=== PATIENT | female | born 1950 | race Caucasian/White ===

== ENCOUNTER 2022-02-27 10:29 | Outpatient (REF) | payer MEDICARE, OTHER, SELFPAY ==
[2022-02-27 10:45] LABS: MANUAL DIFF FLAG NO
[2022-02-27 12:04] LABS: Basophils Percent Auto 0.7 % (0-2); Eosinophils Absolute Auto 0.1 X10*3/uL (0.0-0.4); Eosinophils Percent Auto 2.4 % (0-4); Hematocrit 44.9 % (37.0-47.0); Hemoglobin 15.2 g/dl (12.0-16.0); Imm Gran Abs Auto 0.01 X10*3/uL (0.00-0.03); Imm Gran Pct Auto 0.2 % (0.0-0.4); Lymphocytes Absolute Auto 2.3 X10*3/uL (1.2-4.9); Lymphocytes Percent Auto 42.3 % (20-40); Mean Corpuscular HGB Conc 33.9 g/dl (31.0-35.0); Mean Corpuscular Hemoglobin 32.1 pg (27.0-33.0); Mean Corpuscular Volume 94.7 fL (80.0-98.0); Mean Platelet Volume 11.5 fL (9.4-12.3); Monocytes Absolute Auto 0.4 X10*3/uL (0.1-1.2); Monocytes Percent Auto 6.5 % (2-11); Neutrophils Absolute Auto 2.6 x10*3/uL (2.0-8.3); Neutrophils Percent Auto 47.9 % (45-73); Platelet Count 172 X10*3/uL (160-400); Red Blood Count 4.74 X10*6/uL (4.20-5.50); Red Cell Distribution Width 13.1 % (11.0-16.0); White Blood Count 5.5 X10*3/uL (4.8-10.8)
[2022-02-27 12:10] LABS: Appearance Urine CLEAR; Color Urine YELLOW; Glucose Urine UA NEG (NEG); Leukocyte Esterase Urine 2+ (NEG); Nitrite Urine NEG (NEG); PH 6.5 (5.0-8.0); Specific Gravity - Urine <= 1.005 (1.005-1.025); UACC Culture Trigger YES; Urine Blood TRACE (NEG); Urine Ketones NEG (NEG); Urine Protein NEG (NEG-TRACE)
[2022-02-27 12:47] LABS: Alanine Aminotransferase 9 U/L (0-31); Albumin Level 4.1 g/dL (3.5-5.0); Alkaline Phosphatase 83 U/L (39-117); Anion Gap 12 (12-20); Aspartate Amino Transferase 15 U/L (5-31); Bilirubin Total 0.9 mg/dL (0.0-1.0); Blood Urea Nitrogen 10 mg/dL (9-16); Calcium 9.3 mg/dL (8.4-10.2); Carbon Dioxide 28 mmol/L (22-29); Chloride 102 mmol/L (96-108); Cholesterol 241 mg/dL; Estimated Glomerular Filt Rate > 60; Glucose Fasting 94 mg/dL (60-99); HDL Cholesterol 75 mg/dL; LDL Cholesterol Calculated 153 mg/dl; Potassium 3.8 mmol/L (3.3-5.1); Sodium 138 mmol/L (135-145); Total Protein 6.3 g/dL (6.5-8.0); Triglycerides 67 mg/dL
[2022-02-27 12:52] LABS: Erythrocyte Sedimentation Rate 4 MM/HR (0-20)
[2022-02-27 12:54] LABS: Free T4 (Free Thyroxine) 1.68 ng/dL (0.71-1.85); Vitamin D 25-OH Total 17.8 ng/mL (>30)
[2022-02-27 13:25] LABS: Bacteria Urine 1+ /LPF; Squamous Epithelial Cell Urine 1+ /LPF
[2022-02-27 13:27] LABS: RBC Urine 0-2 /HPF (0)
== END 2022-02-27 10:30 | disposition home or self-care (01) ==
LOC: HO.LAB 10:29
PROVIDERS: PCP Internal Medicine; Visit Provider Internal Medicine
DX: M06.4 Inflammatory polyarthropathy (principal); E78.00 Pure hypercholesterolemia, unspecified; E55.9 Vitamin D deficiency, unspecified; E03.9 Hypothyroidism, unspecified; M79.7 Fibromyalgia; I10 Essential (primary) hypertension
CPT/HCPCS: 36415; 80053; 80061; 81001; 81003; 82306; 84439; 84443; 85025; 85652; 86140; 87086

== ENCOUNTER 2022-08-06 09:51 | Outpatient (REF) | payer MEDICARE, SELFPAY ==
[2022-08-06 10:09] LABS: MANUAL DIFF FLAG NO
[2022-08-06 10:42] LABS: Basophils Percent Auto 0.8 % (0-2); Eosinophils Absolute Auto 0.2 X10*3/uL (0.0-0.4); Eosinophils Percent Auto 3.3 % (0-4); Hematocrit 47.6 % (37.0-47.0); Hemoglobin 16.3 g/dl (12.0-16.0); Imm Gran Abs Auto 0.01 X10*3/uL (0.00-0.03); Imm Gran Pct Auto 0.2 % (0.0-0.4); Lymphocytes Absolute Auto 1.9 X10*3/uL (1.2-4.9); Lymphocytes Percent Auto 36.7 % (20-40); Mean Corpuscular HGB Conc 34.2 g/dl (31.0-35.0); Mean Corpuscular Hemoglobin 32.1 pg (27.0-33.0); Mean Corpuscular Volume 93.7 fL (80.0-98.0); Monocytes Absolute Auto 0.3 X10*3/uL (0.1-1.2); Monocytes Percent Auto 6.1 % (2-11); Neutrophils Absolute Auto 2.8 x10*3/uL (2.0-8.3); Neutrophils Percent Auto 52.9 % (45-73); Platelet Count 176 X10*3/uL (160-400); Red Blood Count 5.08 X10*6/uL (4.20-5.50); White Blood Count 5.2 X10*3/uL (4.8-10.8)
[2022-08-06 11:21] LABS: Alanine Aminotransferase 12 U/L (0-31); Albumin Level 4.4 g/dL (3.5-5.0); Alkaline Phosphatase 61 U/L (39-117); Anion Gap 15 (12-20); Aspartate Amino Transferase 17 U/L (5-31); Bilirubin Total 0.7 mg/dL (0.0-1.0); Blood Urea Nitrogen 17 mg/dL (9-16); Calcium 9.2 mg/dL (8.4-10.2); Carbon Dioxide 27 mmol/L (22-29); Chloride 98 mmol/L (96-108); Cholesterol 276 mg/dL; Estimated Glomerular Filt Rate > 60; Glucose Fasting 99 mg/dL (60-99); HDL Cholesterol 76 mg/dL; LDL Cholesterol Calculated 179 mg/dl; Potassium 3.4 mmol/L (3.3-5.1); Sodium 137 mmol/L (135-145); Total Protein 6.6 g/dL (6.5-8.0); Triglycerides 106 mg/dL
[2022-08-06 11:29] LABS: Free T4 (Free Thyroxine) 1.72 ng/dL (0.71-1.85); Vitamin D 25-OH Total 47.4 ng/mL (>30)
[2022-08-06 12:33] LABS: Appearance Urine Clear; Color Urine Yellow; Glucose Urine UA Negative (Negative); Leukocyte Esterase Urine Small (1+) (Negative); Nitrite Urine Negative (Negative); Specific Gravity - Urine 1.015 (1.005-1.025); UMIC TRIGGER UACC YES; Urine Blood Negative (Negative); Urine Ketones Negative (Negative); Urine Protein Negative (Neg-Trace)
[2022-08-06 13:20] LABS: Bacteria Urine None Seen (None Seen); Hyaline Casts Urine 0-2 /LPF (0-2); RBC Urine 0-2 /HPF (0-2); Squamous Epithelial Cell Urine 0-2 /HPF (0-2); UACC Culture Trigger YES; WBC Urine 0-5 /HPF (0-5)
== END 2022-08-06 09:52 | disposition home or self-care (01) ==
LOC: HO.LAB 09:51
PROVIDERS: PCP Internal Medicine; Visit Provider Internal Medicine
DX: I10 Essential (primary) hypertension (principal); E55.9 Vitamin D deficiency, unspecified; E78.00 Pure hypercholesterolemia, unspecified; E03.9 Hypothyroidism, unspecified
CPT/HCPCS: 36415; 80053; 80061; 81001; 81003; 82306; 84439; 84443; 85025; 87086

== ENCOUNTER 2022-11-08 08:11 | Outpatient (REF) | payer MEDICARE, SELFPAY ==
--- NOTE | ~2022-11-08 | US_ITS ---
EXAMINATION: US ABDOMEN COMPLETE CLINICAL INFORMATION: Unspecified abdominal pain. COMPARISON: None TECHNIQUE: Real-time imaging of the abdominal viscera. FINDINGS: PANCREAS: Normal. ABDOMINAL AORTA: The proximal, mid, and distal segments are normal in caliber. INFERIOR VENA CAVA: Visualized portions are normal. LIVER: Normal. The liver is normal in size. The liver contour is normal. Parenchymal echogenicity is normal. No focal hepatic lesion. There is no intrahepatic biliary duct dilatation seen. GALLBLADDER: Normal. The gallbladder is physiologically distended without evidence of stones, sludge, polyps, wall thickening or pericholecystic fluid. COMMON BILE DUCT: Normal in caliber measuring 0.2 cm in diameter. RIGHT KIDNEY: Normal. No hydronephrosis. No renal calculi or focal parenchymal lesions. The kidney measures 10.1 cm in maximum dimension. LEFT KIDNEY: Several small 1-2 mm echogenic foci are seen within the left kidney, nonspecific. No hydronephrosis. No renal calculi or focal parenchymal lesions. The kidney measures 9.9 cm in maximum dimension. SPLEEN: Normal. The spleen measures 8.4 cm in maximum dimension. FREE FLUID: None. US/US abdomen complete IMPRESSION: Several 1-2 mm echogenic nonshadowing foci in the left kidney. Most likely these represent vascular calcifications rather than nonshadowing calculi.
== END 2022-11-08 08:12 | disposition home or self-care (01) ==
LOC: HO.US 08:11
PROVIDERS: PCP Internal Medicine; Visit Provider Internal Medicine
DX: R10.9 Unspecified abdominal pain (principal)
CPT/HCPCS: 76700

== ENCOUNTER 2023-01-03 09:05 | Outpatient (REF) | payer MEDICARE, SELFPAY ==
[2023-01-03 09:19] LABS: MANUAL DIFF FLAG NO
[2023-01-03 09:56] LABS: Basophils Percent Auto 0.6 % (0-2); Eosinophils Absolute Auto 0.1 X10*3/uL (0.0-0.4); Hematocrit 48.7 % (37.0-47.0); Hemoglobin 16.4 g/dl (12.0-16.0); Imm Gran Abs Auto 0.02 X10*3/uL (0.00-0.03); Imm Gran Pct Auto 0.3 % (0.0-0.4); Lymphocytes Absolute Auto 2.2 X10*3/uL (1.2-4.9); Lymphocytes Percent Auto 31.4 % (20-40); Mean Corpuscular HGB Conc 33.7 g/dl (31.0-35.0); Mean Corpuscular Hemoglobin 31.7 pg (27.0-33.0); Mean Platelet Volume 10.8 fL (9.4-12.3); Monocytes Absolute Auto 0.4 X10*3/uL (0.1-1.2); Monocytes Percent Auto 5.8 % (2-11); Neutrophils Absolute Auto 4.3 x10*3/uL (2.0-8.3); Neutrophils Percent Auto 59.9 % (45-73); Platelet Count 179 X10*3/uL (160-400); Red Blood Count 5.18 X10*6/uL (4.20-5.50); White Blood Count 7.1 X10*3/uL (4.8-10.8)
[2023-01-03 09:56] LABS: Appearance Urine Clear; Color Urine Yellow; Glucose Urine UA Negative (Negative); Leukocyte Esterase Urine Negative (Negative); Nitrite Urine Negative (Negative); PH 6.5 (5.0-9.0); Specific Gravity - Urine 1.015 (1.005-1.025); Urine Blood Negative (Negative); Urine Ketones Negative (Negative); Urine Protein Trace mg/dL (Neg-Trace)
[2023-01-03 11:06] LABS: Alanine Aminotransferase 13 U/L (0-31); Albumin Level 4.3 g/dL (3.5-5.0); Alkaline Phosphatase 70 U/L (39-117); Anion Gap 14 (12-20); Aspartate Amino Transferase 15 U/L (5-31); Bilirubin Total 0.9 mg/dL (0.0-1.0); Blood Urea Nitrogen 21 mg/dL (9-16); Carbon Dioxide 27 mmol/L (22-29); Chloride 101 mmol/L (96-108); Cholesterol 299 mg/dL; Estimated Glomerular Filt Rate > 60; Glucose Fasting 94 mg/dL (60-99); HDL Cholesterol 75 mg/dL; LDL Cholesterol Calculated 206 mg/dl; Sodium 138 mmol/L (135-145); Total Protein 6.5 g/dL (6.5-8.0); Triglycerides 91 mg/dL
[2023-01-03 11:24] LABS: TSH reflex Free T4 1.24 uIU/mL (0.32-4.0); Vitamin D 25-OH Total 25.1 ng/mL (>30)
== END 2023-01-03 09:06 | disposition home or self-care (01) ==
LOC: HO.LAB 09:05
PROVIDERS: PCP Internal Medicine; Visit Provider Internal Medicine
DX: E55.9 Vitamin D deficiency, unspecified (principal); E78.00 Pure hypercholesterolemia, unspecified; R30.0 Dysuria; I10 Essential (primary) hypertension
CPT/HCPCS: 36415; 80053; 80061; 81003; 82306; 84443; 85025

== ENCOUNTER 2023-06-15 10:15 | Outpatient (REF) | payer MEDICARE, SELFPAY ==
[2023-06-15 10:41] LABS: MANUAL DIFF FLAG NO
[2023-06-15 11:16] LABS: Basophils Absolute Auto 0.1 X10*3/uL (0.0-0.2); Eosinophils Absolute Auto 0.2 X10*3/uL (0.0-0.4); Eosinophils Percent Auto 3.7 % (0-4); Hematocrit 46.7 % (37.0-47.0); Hemoglobin 15.8 g/dl (12.0-16.0); Imm Gran Abs Auto 0.02 X10*3/uL (0.00-0.03); Imm Gran Pct Auto 0.3 % (0.0-0.4); Lymphocytes Absolute Auto 2.7 X10*3/uL (1.2-4.9); Lymphocytes Percent Auto 44.4 % (20-40); Mean Corpuscular HGB Conc 33.8 g/dl (31.0-35.0); Mean Corpuscular Hemoglobin 32.4 pg (27.0-33.0); Mean Corpuscular Volume 95.7 fL (80.0-98.0); Mean Platelet Volume 10.9 fL (9.4-12.3); Monocytes Absolute Auto 0.4 X10*3/uL (0.1-1.2); Monocytes Percent Auto 6.8 % (2-11); Neutrophils Absolute Auto 2.6 x10*3/uL (2.0-8.3); Neutrophils Percent Auto 43.8 % (45-73); Platelet Count 191 X10*3/uL (160-400); Red Blood Count 4.88 X10*6/uL (4.20-5.50); Red Cell Distribution Width 13.2 % (11.0-16.0)
[2023-06-15 11:24] LABS: Appearance Urine Clear; Color Urine Yellow; Glucose Urine UA Negative (Negative); Leukocyte Esterase Urine Small (1+) (Negative); Nitrite Urine Negative (Negative); Specific Gravity - Urine 1.015 (1.005-1.025); UMIC TRIGGER UACC YES; Urine Blood Negative (Negative); Urine Ketones Negative (Negative); Urine Protein Trace mg/dL (Neg-Trace)
[2023-06-15 11:39] LABS: Bacteria Urine None Seen (None Seen); Hyaline Casts Urine 0-2 /LPF (0-2); RBC Urine 0-2 /HPF (0-2); UACC Culture Trigger YES; WBC Urine 0-5 /HPF (0-5)
[2023-06-15 12:03] LABS: Alanine Aminotransferase 11 U/L (0-31); Alkaline Phosphatase 73 U/L (39-117); Anion Gap 13 (12-20); Aspartate Amino Transferase 14 U/L (5-31); Bilirubin Total 0.7 mg/dL (0.0-1.0); Blood Urea Nitrogen 16 mg/dL (9-16); Calcium 9.3 mg/dL (8.4-10.2); Carbon Dioxide 27 mmol/L (22-29); Chloride 104 mmol/L (96-108); Cholesterol 379 mg/dL; Estimated Glomerular Filt Rate > 60; Glucose Fasting 95 mg/dL (60-99); HDL Cholesterol 83 mg/dL; LDL Cholesterol Calculated 277 mg/dl; Potassium 3.9 mmol/L (3.3-5.1); Sodium 140 mmol/L (135-145); Total Protein 6.6 g/dL (6.5-8.0); Triglycerides 95 mg/dL
[2023-06-15 12:08] LABS: Free T4 (Free Thyroxine) 1.29 ng/dL (0.71-1.85); Thyroid Stimulating Hormone 0.78 uIU/mL (0.32-4.0); Vitamin D 25-OH Total 35.9 ng/mL (>30)
== END 2023-06-15 10:16 | disposition home or self-care (01) ==
LOC: HO.LAB 10:15
PROVIDERS: PCP Internal Medicine; Visit Provider Internal Medicine
DX: E03.9 Hypothyroidism, unspecified (principal); E55.9 Vitamin D deficiency, unspecified; I10 Essential (primary) hypertension; E78.00 Pure hypercholesterolemia, unspecified; R30.0 Dysuria
CPT/HCPCS: 36415; 80053; 80061; 81001; 82306; 84439; 84443; 85025; 87086

== ENCOUNTER 2023-07-01 16:06 | Outpatient (AMB) | payer MEDICARE, SELFPAY ==
--- NOTE | 2023-07-01 16:16 | MHC.PC.OV ---
Vital Signs 07/01/23 16:17 Height 5 ft 1 in Weight 98 lb 8 oz BMI 18.6 BP 136/90 H Blood Pressure Location Lt brachial Position Sitting Pulse 83 Pulse Source Pulse Oximeter Pulse Oximetry (%) 95 Oxygen Delivery Method Room Air Intake Visit Reasons: 4m F/U hyperlipidemia, hypothyroidism [facility] Required: No Accompanied by: Self / Same As Patient Allergies aspirin Adverse Reaction (Intermediate, Verified 07/01/23 17:02) abdominal pain, nausea/vomiting, makes sick ezetimibe [Zetia] Adverse Reaction (Intermediate, Verified 07/01/23 17:02) abdominal pain Medication List - Last Reconciled 07/01/23 by Jose Vivar MD cholecalciferol (vitamin D3) 50 mcg PO DAILY 90 days levothyroxine 100 mcg PO QAM 90 days pantoprazole 40 mg PO DAILY 30 days Praluent Pen (alirocumab) 300 mg (2 mL) subcut Q4W 12 weeks NS Tobacco use date assessed: 07/01/23 Fall risk assessment: No Falls in past year Last assessed Fall Risk: 07/01/23 Dental Screening Dental Screen Date: 07/01/23 Did you have a dental visit in the last 12 months?: No Did you have a dental problem in the last 6 months where you did not have access to dental care?: No Was dental information given to patient?: No HPI 4m F/U hyperlipidemia, hypothyroidism HPI Details Patient comes in today for her follow up visit States that she feels okay States that she just started her Praluent injections last week and that her recent labs were done just before she started on her Rx Adds that she was also recently diagnosed with glaucoma by ophthalmology (in [place]) and started on a couple of eyedrops but she cannot remember the name of her Rx at this time She denies any headaches or dizziness Denies any chest pains, no SOB No nausea/vomiting, no abdominal pain - symptoms have improved significantly with Pantoprazole No change in bowel habits noted Had her follow up labs done a couple of weeks ago - to discuss her results [facility] Medical History (Updated 07/01/23 @ 17:18 by Jose Vivar MD) Acquired hypothyroidism Anxiety Benign essential hypertension Glaucoma Inflammatory polyarthropathy Pure hypercholesterolemia Smoker Vitamin D deficiency Surgical History No pertinent past surgical history Family History Father No problems noted. Mother No problems noted. Social History Housing: House Alcohol intake: current Alcohol intake frequency: does not drink Patient Tobacco Use Status: Current everyday Tobacco user Cigarette Packs Per Day: 1 Cigarettes Per Day: 20 e-Cigarette/Vaping Use: Never Used Second Hand Smoke Exposure: Yes Current occupational status: retired Cognitive needs: No Hearing needs: No Vision needs: Yes (reading glasses) Questionnaire PHQ-9 Over the last 2 weeks, how often have you been bothered by any of the following problems? 1. Little interest or pleasure in doing things: not at all 2. Feeling down, depressed, or hopeless: not at all 3. Trouble falling or staying asleep, or sleeping too much: not at all 4. Feeling tired or having little energy: not at all 5. Poor appetite or overeating: not at all 6. Feeling bad about yourself - or that you are a failure or have let yourself or your family down: not at all 7. Trouble concentrating on things, such as reading the newspaper or watching television: not at all 8. Moving or speaking so slowly that other people could have noticed. Or the opposite - being so fidgety or restless that you have been moving around a lot more than usual: not at all 9. Thoughts that you would be better off or of hurting yourself in some way: not at all Total score: 0 Depression Screening Interpretation: Negative 46591 - PHQ-9 Billing: Yes Source: Developed by Drs. Crow Peacock, Lina Warner, Hector Ace and colleagues, with an educational ross from [employer]. Thrive Questionnaire Date Thrive assessed: 07/01/23 I am a: Patient What is your living situation today?: I have a steady place to live Within the past 12 months, did the food you bought not last and you didn't have the money to get more?: Never true Within the past 12 months, did you worry whether your food would run out before you got money to buy more?: Never true Do you have trouble paying for medicines?: No Do you have trouble getting transportation to medical appointments?: No Do you have trouble paying your heating and electricity bill?: No Do you have trouble taking care of your child, family member or friend?: No Do you have trouble with day-to-day activities such as bathing, preparing meals, shopping, managing finances, etc.?: No Are you currently unemployed and looking for a job?: No Are you interested in more education?: No Please select the resources that you would like help with: None Currently or been in a relationship where the following occur: no concerns reported AUDIT C Alcohol Use Questionnaire (AUDIT-C) 1. How often do you have a drink containing alcohol?: Never 3. How often do you have six or more drinks on one occasion?: Never Total Score: 0 Score Reviewed/Action Taken: Yes ANA-7 AMB Questionnaire ANA-7 Date ANA - 7 assessed: 07/01/23 Feeling nervous, anxious, or on edge: 0 = Not at all Not being able to stop or control worryin = Not at all Worrying too much about different things: 0 = Not at all Trouble relaxin = Not at all Being so restless that it is hard to sit still: 0 = Not at all Becoming easily annoyed or irritable: 0 = Not at all Feeling afraid as if something awful might happen: 0 = Not at all Total ANA-7 score (0-4 normal; 5-9 mild; 10-14 moderate; 15-21 severe): 0 Source: Developed by Drs. Crow Peacock, Lina Warner, Hector Ace and colleagues, with an educational ross from [employer]. Review of Systems Const Denies chills, Denies fatigue, Denies fever(s) and Denies headache(s) Eyes Denies blurry vision and Denies eye pain ENT Denies dysphagia, Denies dizziness, Denies otalgia, Denies headache(s), Denies odynophagia and Denies sore throat Card Denies chest pain, Denies palpitations and Denies dyspnea Resp Denies cough and Denies dyspnea GI Denies abdominal pain, Denies constipation, Denies dysphagia, Denies heartburn, Denies diarrhea, Denies nausea, Denies odynophagia and Denies vomiting Denies difficulty voiding, Denies nocturia and Denies dysuria Musc Reports arthralgias (on and off, mild, especially over both hands), Denies joint swelling and Denies muscle weakness Skin/Breast Denies rash Neuro Denies dizziness and Denies headache(s) Endo Denies fatigue and Denies palpitations Physical exam (Primary Care) Vital Signs: Last Vital Signs Pulse 83 07/01/23 16:17 BP 136/90 H 07/01/23 16:17 Pulse Ox 95 07/01/23 16:17 Oxygen Delivery Method Room Air 07/01/23 16:17 BMI result Body Mass Index 18.6 Tobacco/Smoking Status: Tobacco use Status Tobacco use date assessed 07/01/23 07/01/23 16:23 Patient Tobacco Use Status Current everyday Tobacco 07/01/23 16:23 e-Cigarette/Vaping Use Never Used 07/01/23 16:23 PHQ-9: PHQ-9 Score PHQ-9: Total score 0 07/01/23 16:23 Depression Screening Interpretation: Negative Thrive Assessment: Date of Thrive Assessment Date Thrive assessed 07/01/23 07/01/23 16:23 Currently or been in a relationship where the following occur: no concerns reported Const General: no acute distress and alert HENMT Ears: TM's normal bilaterally and EAC's normal Throat: Yes posterior oropharynx normal and Yes tonsils normal (no TP congestion) Neck Neck: Yes no lymphadenopathy and Yes supple Resp Auscultation: clear to auscultation bilaterally, no rales and no wheezes Cardio Rate: regular rate Rhythm: regular rhythm Heart sounds: no murmurs GI Palpation (GI): Soft to palpation and nontender Auscultation: normal bowel sounds Extrem General: Yes no clubbing, cyanosis or edema Right upper extremity: Extremity exam: right hand Details: tenderness Left upper extremity: hand Details: tenderness Results Reviewed Results Reviewed: Laboratory Tests 06/15/23 06/15/23 06/15/23 10:38 10:40 10:40 WBC 6.0 Hgb 15.8 Hct 46.7 Plt Count 191 Sodium 140 Potassium 3.9 Creatinine 0.69 Estimated GFR > 60 Fasting Glucose 95 Calcium 9.3 AST 14 ALT 11 Triglycerides 95 Cholesterol 379 LDL Cholesterol, Calc 277 HDL Cholesterol 83 25-OH Vitamin D Total 35.9 TSH 0.78 Free T4 1.29 Urine pH 7.0 Ur Specific [place] 1.015 Urine Protein Trace Urine Glucose (UA) Negative Urine Blood Negative Assessment and Plan Assessment & Plan (1) Pure hypercholesterolemia: Code(s): E78.00 - Pure hypercholesterolemia, unspecified Plan: Results of her labs done a couple of weeks ago reviewed and discussed with patient - lipids have increased again significantly from previous States that her labs were done just before she started on Praluent; has not had any reactions or side effects so far on the Rx Reinforced low cholesterol diet Continue Praluent injection 300 mg Q 4 weeks Could not tolerate both Rosuvastatin 60 mg QD and Atorvastatin 80 mg QD - had abdominal pain on BOTH medications and her LDL cholesterol never did get to goal even when she was on Rosuvastatin 40 mg QD for the past couple of years Will recheck her labs and fasting lipids in 4 months for follow up (2) Acquired hypothyroidism: Code(s): E03.9 - Hypothyroidism, unspecified Plan: TFTs were normal on her recent labs Continue Levothyroxine 112 mcg QD Will recheck her TFTs in 4 months for follow up (3) Benign essential hypertension: Code(s): I10 - Essential (primary) hypertension Plan: Reinforced low sodium diet - goal is systolic BP of at least 140 to 150 mm or less Used to take Lisinopril 10 mg QD; states that she has just been taking it as needed over the past year or so and notes that her blood pressure is often much lower than her numbers here when she checks it at home (4) Gastritis: Code(s): K29.70 - Gastritis, unspecified, without bleeding Qualifiers: Gastritis type: unspecified gastritis Chronicity: unspecified Gastritis bleeding: without bleeding Qualified Code(s): K29.70 - Gastritis, unspecified, without bleeding Plan: Resolved - suspect gastritis as the etiology of her abdominal pain Reinforced dietary restrictions Abdominal US done a few months ago came out unrevealing Continue Pantoprazole 40 mg QD PRN (5) Inflammatory polyarthropathy: Code(s): M06.4 - Inflammatory polyarthropathy Plan: Follow up with rheumatology as scheduled States that her joint pains (especially over her hands and fingers) have improved a lot since she retired from work a couple of years ago Used to take Celebrex PRN but has not had to take it in a while now (6) Vitamin D deficiency: Code(s): E55.9 - Vitamin D deficiency, unspecified Plan: Corrected - continue Vitamin D3 2000 units QD (7) Glaucoma: Code(s): H40.9 - Unspecified glaucoma Qualifiers: Glaucoma type: unspecified Laterality: bilateral Qualified Code(s): H40.9 - Unspecified glaucoma Plan: Recently diagnosed Was started on a couple of eyedrops recently but she could not recall the names of her Rx - states that she will call them in as soon as she is able to Follow up with ophthalmology as scheduled (8) Anxiety: Code(s): F41.9 - Anxiety disorder, unspecified Plan: Has Lorazepam 1 mg tablets that she used to take BID as needed but states that her anxiety has been well-controlled lately and she has not had to take her Lorazepam in a few months now (9) Smoker: Code(s): F17.200 - Nicotine dependence, unspecified, uncomplicated Plan: Counseled again on smoking cessation Plan Follow up in 4 months Orders: Orders Lipid Panel 4 Months E78.00 - Pure hypercholesterolemia, unspecified [facility] [place]. Panel Fast 4 Months E78.00 - Pure hypercholesterolemia, unspecified Free T4 (Free Thyroxine) 4 Months E03.9 - Hypothyroidism, unspecified Thyroid Stimulating Hormone 4 Months E03.9 - Hypothyroidism, unspecified Complete Blood Count Auto Diff 4 Months I10 - Essential (primary) hypertension UA CC w/rflx Micro + Cult 4 Months R30.0 - Dysuria Coding Level of Care Code Est Pt Level 4 (43182) Diagnoses Pure hypercholesterolemia E78.00 Acquired hypothyroidism E03.9 Benign essential hypertension I10 Gastritis K29.70 Gastritis type: unspecified gastritis Chronicity: unspecified Gastritis bleeding: without bleeding Inflammatory polyarthropathy M06.4 Vitamin D deficiency E55.9 Glaucoma H40.9 Glaucoma type: unspecified Laterality: bilateral Anxiety F41.9 Smoker F17.200
[2023-07-01 16:17] VITALS: BP 136/90; PULSE 83; O2SAT 95; BMI 18.6
== END 2023-07-01 17:13 | disposition home or self-care (01) ==
PROVIDERS: PCP Internal Medicine; Visit Provider Internal Medicine
DX: E03.9 Hypothyroidism, unspecified (principal); I10 Essential (primary) hypertension; E55.9 Vitamin D deficiency, unspecified; F41.9 Anxiety disorder, unspecified; F17.200 Nicotine dependence, unspecified, uncomplicated; M06.4 Inflammatory polyarthropathy; E78.00 Pure hypercholesterolemia, unspecified; K29.70 Gastritis, unspecified, without bleeding; H40.9 Unspecified glaucoma
CPT/HCPCS: 99214

== ENCOUNTER 2023-11-29 09:26 | Outpatient (REF) | payer MEDICARE, SELFPAY ==
[2023-11-29 09:39] LABS: MANUAL DIFF FLAG NO
[2023-11-29 10:35] LABS: Basophils Absolute Auto 0.1 X10*3/uL (0.0-0.2); Eosinophils Absolute Auto 0.2 X10*3/uL (0.0-0.4); Eosinophils Percent Auto 3.4 % (0-4); Hematocrit 47.2 % (37.0-47.0); Hemoglobin 15.7 g/dl (12.0-16.0); Imm Gran Abs Auto 0.01 X10*3/uL (0.00-0.03); Imm Gran Pct Auto 0.2 % (0.0-0.4); Lymphocytes Absolute Auto 2.3 X10*3/uL (1.2-4.9); Lymphocytes Percent Auto 36.9 % (20-40); Mean Corpuscular HGB Conc 33.3 g/dl (31.0-35.0); Mean Corpuscular Hemoglobin 31.9 pg (27.0-33.0); Mean Corpuscular Volume 95.9 fL (80.0-98.0); Mean Platelet Volume 10.9 fL (9.4-12.3); Monocytes Absolute Auto 0.4 X10*3/uL (0.1-1.2); Monocytes Percent Auto 6.8 % (2-11); Neutrophils Absolute Auto 3.2 x10*3/uL (2.0-8.3); Neutrophils Percent Auto 51.7 % (45-73); Platelet Count 198 X10*3/uL (160-400); Red Blood Count 4.92 X10*6/uL (4.20-5.50); White Blood Count 6.2 X10*3/uL (4.8-10.8)
[2023-11-29 10:43] LABS: Appearance Urine Clear; Color Urine Yellow; Glucose Urine UA Negative (Negative); Leukocyte Esterase Urine Negative (Negative); Nitrite Urine Negative (Negative); PH 6.5 (5.0-9.0); Specific Gravity - Urine 1.015 (1.005-1.025); Urine Blood Negative (Negative); Urine Ketones Negative (Negative); Urine Protein Trace mg/dL (Neg-Trace)
[2023-11-29 11:23] LABS: Alanine Aminotransferase 8 U/L (0-31); Alkaline Phosphatase 69 U/L (39-117); Anion Gap 12 (12-20); Aspartate Amino Transferase 12 U/L (5-31); Bilirubin Total 0.6 mg/dL (0.0-1.0); Blood Urea Nitrogen 14 mg/dL (9-16); Calcium 8.8 mg/dL (8.4-10.2); Carbon Dioxide 27 mmol/L (22-29); Chloride 102 mmol/L (96-108); Cholesterol 364 mg/dL (<200); Estimated Glomerular Filt Rate > 60; Glucose Fasting 93 mg/dL (60-99); HDL Cholesterol 78 mg/dL (>40); LDL Cholesterol Calculated 264 mg/dL (<100); Potassium 3.2 mmol/L (3.3-5.1); Sodium 138 mmol/L (135-145); Total Protein 6.6 g/dL (6.5-8.0); Triglycerides 112 mg/dL (<150)
[2023-11-29 11:40] LABS: Free T4 (Free Thyroxine) 1.55 ng/dL (0.71-1.85); Thyroid Stimulating Hormone 0.82 uIU/mL (0.32-4.0)
== END 2023-11-29 09:27 | disposition home or self-care (01) ==
LOC: HO.LAB 09:26
PROVIDERS: PCP Internal Medicine; Visit Provider Internal Medicine
DX: I10 Essential (primary) hypertension (principal); R30.0 Dysuria; E03.9 Hypothyroidism, unspecified; E78.00 Pure hypercholesterolemia, unspecified
CPT/HCPCS: 36415; 80053; 80061; 81003; 84439; 84443; 85025

== ENCOUNTER 2023-12-03 13:45 | Outpatient (AMB) | payer MEDICARE, SELFPAY ==
[2023-12-03 13:46] VITALS: BP 152/100; PULSE 89; O2SAT 100; BMI 18.7
--- NOTE | 2023-12-03 13:46 | MHC.PC.OV ---
Vital Signs 12/03/23 13:46 Height 5 ft 1 in Weight 99 lb BMI 18.7 BP 152/100 H Blood Pressure Location Lt brachial Position Sitting Pulse 89 Pulse Source Pulse Oximeter Pulse Oximetry (%) 100 Oxygen Delivery Method Room Air Intake Visit Reasons: high blood pressure 190s, asymptomatic. G[facility] Peeler Required: No Product Safety Consultant: Not Required per policy Accompanied by: Self / Same As Patient Allergies aspirin Adverse Reaction (Intermediate, Verified 12/03/23 13:47) abdominal pain, nausea/vomiting, makes sick ezetimibe [Zetia] Adverse Reaction (Intermediate, Verified 12/03/23 13:47) abdominal pain Tobacco use date assessed: 12/03/23 Fall risk assessment: No Falls in past year Last assessed Fall Risk: 12/03/23 Dental Screening Dental Screen Date: 12/03/23 Did you have a dental visit in the last 12 months?: No Did you have a dental problem in the last 6 months where you did not have access to dental care?: No Was dental information given to patient?: Patient has dentist HPI high blood pressure 190s, asymptomatic. HPI Details 73-year-old female presents to the office for a sick visit. Patient was at the [facility] for right eye surgery yesterday. Her blood pressure was found to be elevated and the surgery was not done. Patient i presents to the office for evaluation of high blood pressure. She reports no symptoms of headaches or blurred vision. Smokes a pack a day. History of high LDL and is on injectable medications to lower cholesterol. She has been taking the PCSK9 inhibitor injection for the past 1 year. Stopped taking the medication a month ago as she has not able to afford the cost. [facility] Medical History (Updated 07/01/23 @ 17:18 by Jose Vivar MD) Glaucoma Vitamin D deficiency Smoker Anxiety Inflammatory polyarthropathy Benign essential hypertension Acquired hypothyroidism Pure hypercholesterolemia Surgical History No pertinent past surgical history Family History Father No problems noted. Mother No problems noted. Social History Housing: House Alcohol intake: current Alcohol intake frequency: does not drink Patient Tobacco Use Status: Current everyday Tobacco user Cigarette Packs Per Day: 1 Cigarettes Per Day: 20 e-Cigarette/Vaping Use: Never Used Second Hand Smoke Exposure: Yes Current occupational status: retired Cognitive needs: No Hearing needs: No Vision needs: Yes (reading glasses) Questionnaire PHQ-9 Over the last 2 weeks, how often have you been bothered by any of the following problems? 1. Little interest or pleasure in doing things: not at all 2. Feeling down, depressed, or hopeless: not at all 3. Trouble falling or staying asleep, or sleeping too much: not at all 4. Feeling tired or having little energy: not at all 5. Poor appetite or overeating: not at all 6. Feeling bad about yourself - or that you are a failure or have let yourself or your family down: not at all 7. Trouble concentrating on things, such as reading the newspaper or watching television: not at all 8. Moving or speaking so slowly that other people could have noticed. Or the opposite - being so fidgety or restless that you have been moving around a lot more than usual: not at all 9. Thoughts that you would be better off or of hurting yourself in some way: not at all Total score: 0 Depression Screening Interpretation: Negative Depression Screening Done: Yes 76001 - PHQ-9 Billing: Yes Source: Developed by Drs. Crow Peacock, Lina Warner, Hector Ace and colleagues, with an educational ross from [employer] Thrive Questionnaire Date Thrive assessed: 12/03/23 I am a: Patient What is your living situation today?: I have a steady place to live Within the past 12 months, did the food you bought not last and you didn't have the money to get more?: Never true Within the past 12 months, did you worry whether your food would run out before you got money to buy more?: Never true Do you have trouble paying for medicines?: No Do you have trouble getting transportation to medical appointments?: No Do you have trouble paying your heating and electricity bill?: No Do you have trouble taking care of your child, family member or friend?: No Do you have trouble with day-to-day activities such as bathing, preparing meals, shopping, managing finances, etc.?: No Are you currently unemployed and looking for a job?: No Are you interested in more education?: No Please select the resources that you would like help with: None THRIVE Score: 0 AUDIT C Alcohol Use Questionnaire (AUDIT-C) 1. How often do you have a drink containing alcohol?: Never 3. How often do you have six or more drinks on one occasion?: Never Total Score: 0 Score Reviewed/Action Taken: Yes ANA-7 AMB Questionnaire ANA-7 Date ANA - 7 assessed: 12/03/23 Feeling nervous, anxious, or on edge: 0 = Not at all Not being able to stop or control worryin = Not at all Worrying too much about different things: 0 = Not at all Trouble relaxin = Not at all Being so restless that it is hard to sit still: 0 = Not at all Becoming easily annoyed or irritable: 0 = Not at all Feeling afraid as if something awful might happen: 0 = Not at all Total ANA-7 score (0-4 normal; 5-9 mild; 10-14 moderate; 15-21 severe): 0 Source: Developed by Drs. Crow Peacock, Lina Warner, Hector Ace and colleagues, with an educational ross from [employer] Physical exam (Primary Care) Vital Signs: Last Vital Signs Pulse 89 12/03/23 13:46 BP 152/100 H 12/03/23 13:46 Pulse Ox 100 12/03/23 13:46 Oxygen Delivery Method Room Air 12/03/23 13:46 Care Plan Goal for BP management: Blood pressures elevated. Medications started. BMI result Body Mass Index 18.7 Tobacco/Smoking Status: Tobacco use Status Tobacco use date assessed 12/03/23 12/03/23 13:54 Patient Tobacco Use Status Current everyday Tobacco 12/03/23 13:47 e-Cigarette/Vaping Use Never Used 12/03/23 13:47 PHQ-9: PHQ-9 Score PHQ-9: Total score 0 12/03/23 13:54 Depression Screening Interpretation: Negative Thrive Assessment: Date of Thrive Assessment Date Thrive assessed 12/03/23 12/03/23 13:54 Const General: cooperative and healthy appearing Nutritional Appearance: well nourished Orientation/consciousness: patient oriented x3 Limitations: no limitations HENMT Head: Yes normal to inspection Eyes General: appearance normal, both eyes and all related structures Neck Neck: Yes normal visual inspection Chest Chest palpation & inspection: normal palpation of entire chest wall Resp Effort & Inspection: normal respiratory effort Neuro General: patient oriented x3 Assessment and Plan Assessment & Plan (1) Benign essential hypertension: Code(s): I10 - Essential (primary) hypertension Plan: Blood work reviewed. Potassium will be replaced. Elevated LDL cholesterol. Amlodipine started. Keep the primary care appointment that has been scheduled. Coding Level of Care Code Est Pt Level 4 (14610) Diagnoses Benign essential hypertension I10
== END 2023-12-03 14:14 | disposition home or self-care (01) ==
PROVIDERS: PCP Internal Medicine; Visit Provider Internal Medicine
DX: I10 Essential (primary) hypertension (principal)
CPT/HCPCS: 99214

== ENCOUNTER 2023-12-24 11:07 | Outpatient (AMB) | payer MEDICARE, SELFPAY ==
[2023-12-24 11:16] VITALS: BP 158/100; PULSE 75; O2SAT 95; BMI 18.9
--- NOTE | 2023-12-24 11:16 | A.OFFPC_ITS ---
Vital Signs 12/24/23 11:16 12/24/23 11:58 Height 5 ft 1 in Weight 100 lb BMI 18.9 BP 158/100 H 130/90 H Blood Pressure Location Lt brachial Lt brachial Position Sitting Sitting Pulse 75 Pulse Source Pulse Oximeter Pulse Oximetry (%) 95 Oxygen Delivery Method Room Air Intake Visit Reasons: cataract eye surgery [place] [employer] Required: No Accompanied by: Self / Same As Patient Allergies aspirin Adverse Reaction (Intermediate, Verified 12/24/23 12:11) abdominal pain, nausea/vomiting, makes sick ezetimibe [Zetia] Adverse Reaction (Intermediate, Verified 12/24/23 12:11) abdominal pain Medication List - Last Reconciled 12/24/23 by Jose Vivar MD amlodipine 5 mg PO DAILY 90 days cholecalciferol (vitamin D3) 50 mcg PO DAILY 90 days levothyroxine 100 mcg PO QAM 90 days lorazepam Take 1 tablet 30 to 60 minutes before procedure as needed for anxiety. May repeat x 1 dose after 10 to 15 minutes if needed. 1 day pantoprazole 40 mg PO DAILY 30 days potassium chloride ER 20 mEq PO DAILY 90 days Repatha SureClick (evolocumab) 140 mg subcut Q4W 4 weeks NS Tobacco use date assessed: 12/24/23 Fall risk assessment: No Falls in past year Last assessed Fall Risk: 12/24/23 Dental Screening Dental Screen Date: 12/24/23 Did you have a dental visit in the last 12 months?: Yes Did you have a dental problem in the last 6 months where you did not have access to dental care?: No Was dental information given to patient?: Patient has dentist HPI cataract eye surgery [place] HPI Details Patient comes in today at the request of Dr. John Wilson of [facility] for a preoperative medical examination for clearance for surgery She is scheduled for cataract extraction/phacoemulsification with IOL of both eyes under MAC; will have surgery on one eye done first on 12/26/2023, followed by the same procedure on the other eye a couple of weeks later Patient states that she feels okay She denies any headaches or dizziness Denies any chest pains, no SOB No nausea/vomiting, no abdominal pain No change in bowel habits noted She needs several of her Rx refilled She was supposed to be on Praluent injections ([place] for Rx was approved recently) for her high cholesterol but states that she could not afford the co-pay for her Rx [facility] Medical History Glaucoma Vitamin D deficiency Smoker Anxiety Inflammatory polyarthropathy Benign essential hypertension Acquired hypothyroidism Pure hypercholesterolemia Surgical History No pertinent past surgical history Family History Father No problems noted. Mother No problems noted. Social History Housing: House Alcohol intake: current Alcohol intake frequency: does not drink Patient Tobacco Use Status: Current everyday Tobacco user Cigarette Packs Per Day: 1 Cigarettes Per Day: 20 e-Cigarette/Vaping Use: Never Used Second Hand Smoke Exposure: Yes service: No Current occupational status: retired Current occupational exposures/hazards: No Cognitive needs: No Hearing needs: No Vision needs: Yes (reading glasses) Questionnaire PHQ-9 Over the last 2 weeks, how often have you been bothered by any of the following problems? 1. Little interest or pleasure in doing things: not at all 2. Feeling down, depressed, or hopeless: not at all 3. Trouble falling or staying asleep, or sleeping too much: not at all 4. Feeling tired or having little energy: not at all 5. Poor appetite or overeating: not at all 6. Feeling bad about yourself - or that you are a failure or have let yourself or your family down: not at all 7. Trouble concentrating on things, such as reading the newspaper or watching television: not at all 8. Moving or speaking so slowly that other people could have noticed. Or the opposite - being so fidgety or restless that you have been moving around a lot more than usual: not at all 9. Thoughts that you would be better off or of hurting yourself in some way: not at all Total score: 0 Depression Screening Interpretation: Negative Depression Screening Done: Yes 18002 - PHQ-9 Billing: Yes Source: Developed by Drs. Crow Peacock, Lina Warner, Hector Ace and colleagues, with an educational ross from [employer]. Thrive Questionnaire Date Thrive assessed: 12/24/23 I am a: Patient What is your living situation today?: I have a steady place to live Within the past 12 months, did the food you bought not last and you didn't have the money to get more?: Never true Within the past 12 months, did you worry whether your food would run out before you got money to buy more?: Never true Do you have trouble paying for medicines?: No Do you have trouble getting transportation to medical appointments?: No Do you have trouble paying your heating and electricity bill?: No Do you have trouble taking care of your child, family member or friend?: No Do you have trouble with day-to-day activities such as bathing, preparing meals, shopping, managing finances, etc.?: No Are you currently unemployed and looking for a job?: No Are you interested in more education?: No Please select the resources that you would like help with: None Currently or been in a relationship where the following occur: no concerns reported THRIVE Score: 0 AUDIT C Alcohol Use Questionnaire (AUDIT-C) 1. How often do you have a drink containing alcohol?: Never 3. How often do you have six or more drinks on one occasion?: Never Total Score: 0 Score Reviewed/Action Taken: Yes ANA-7 AMB Questionnaire ANA-7 Date ANA - 7 assessed: 12/24/23 Feeling nervous, anxious, or on edge: 0 = Not at all Not being able to stop or control worryin = Not at all Worrying too much about different things: 0 = Not at all Trouble relaxin = Not at all Being so restless that it is hard to sit still: 0 = Not at all Becoming easily annoyed or irritable: 0 = Not at all Feeling afraid as if something awful might happen: 0 = Not at all Total ANA-7 score (0-4 normal; 5-9 mild; 10-14 moderate; 15-21 severe): 0 Source: Developed by Drs. Crow Peacock, Hector Rodriguez and colleagues, with an educational ross from [employer]. Review of Systems Const Denies chills, Denies fatigue, Denies fever(s) and Denies headache(s) Eyes Reports blurry vision and Denies eye pain ENT Denies dysphagia, Denies dizziness, Denies otalgia, Denies headache(s), Denies odynophagia and Denies sore throat Card Denies chest pain, Denies palpitations and Denies dyspnea Resp Denies cough and Denies dyspnea GI Denies abdominal pain, Denies constipation, Denies dysphagia, Denies heartburn, Denies diarrhea, Denies nausea, Denies odynophagia and Denies vomiting Denies difficulty voiding, Denies nocturia and Denies dysuria Musc Reports arthralgias (on and off, mild, especially over both hands), Denies joint swelling and Denies muscle weakness Skin/Breast Denies rash Neuro Denies dizziness and Denies headache(s) Psych Reports anxiety (on and off, causing blood pressure to go up) Endo Denies fatigue and Denies palpitations Physical exam (Primary Care) Vital Signs: Last Vital Signs Pulse 75 12/24/23 11:16 BP 130/90 H 12/24/23 11:58 Pulse Ox 95 12/24/23 11:16 Oxygen Delivery Method Room Air 12/24/23 11:16 BMI result Body Mass Index 18.9 Tobacco/Smoking Status: Tobacco use Status Tobacco use date assessed 12/24/23 12/24/23 11:23 Patient Tobacco Use Status Current everyday Tobacco 12/24/23 11:23 e-Cigarette/Vaping Use Never Used 12/24/23 11:23 PHQ-9: PHQ-9 Score PHQ-9: Total score 0 12/24/23 12:21 Depression Screening Interpretation: Negative Thrive Assessment: Date of Thrive Assessment Date Thrive assessed 12/24/23 12/24/23 11:23 Currently or been in a relationship where the following occur: no concerns reported Const General: no acute distress and alert HENMT Ears: TM's normal bilaterally and EAC's normal Throat: Yes posterior oropharynx normal and Yes tonsils normal (no TP congestion) Neck Neck: Yes no lymphadenopathy and Yes supple Resp Auscultation: clear to auscultation bilaterally, no rales and no wheezes Cardio Rate: regular rate Rhythm: regular rhythm Heart sounds: no murmurs GI Palpation (GI): Soft to palpation and nontender Auscultation: normal bowel sounds Extrem General: Yes no clubbing, cyanosis or edema Right upper extremity: Extremity exam: right hand Details: tenderness Left upper extremity: hand Details: tenderness Results Reviewed Results Reviewed: Laboratory Tests 11/29/23 11/29/23 11/29/23 09:36 09:36 09:37 WBC 6.2 Hgb 15.7 Hct 47.2 H Plt Count 198 Sodium 138 Potassium 3.2 L Creatinine 0.78 Estimated GFR > 60 Fasting Glucose Calcium AST ALT 8 Triglycerides 112 Cholesterol 364 H LDL Cholesterol, Calc 264 H HDL Cholesterol 78 TSH 0.82 Free T4 1.55 Ur Specific [place] 1.015 Urine Protein Trace Urine Glucose (UA) Negative Urine Blood Negative Urine Nitrite Negative Ur Leukocyte Esterase Negative 11/29/23 11/29/23 09:37 09:37 WBC Hgb Hct Plt Count Sodium Potassium Creatinine Estimated GFR Fasting Glucose 93 Calcium 8.8 AST 12 ALT Triglycerides Cholesterol LDL Cholesterol, Calc HDL Cholesterol TSH Free T4 Ur Specific [place] Urine Protein Urine Glucose (UA) Urine Blood Urine Nitrite Ur Leukocyte Esterase Assessment and Plan Assessment & Plan (1) Preoperative examination: Code(s): Z01.818 - Encounter for other preprocedural examination Plan: Patient presents with acceptable risks for planned low cardiac risk procedure(s) She is asymptomatic (aside from her anxiety); repeat blood pressure today is acceptable at 130/90 mm - she most likely has white coat syndrome or anxiety- driven high blood pressure as her BP readings at home over the past couple of years have been consistently much lower [facility] (2) Cataracts, bilateral: Code(s): H26.9 - Unspecified cataract Qualifiers: Cataract type: unspecified Qualified Code(s): H26.9 - Unspecified cataract Plan: She is scheduled for cataract extraction/phacoemulsification with IOL of both eyes under MAC with Dr. John Wilson Will have surgery done on one eye first on 12/26/2023, followed by the same procedure on the other eye a couple of weeks later (3) Benign essential hypertension: Code(s): I10 - Essential (primary) hypertension Plan: Reinforced low sodium diet - goal is systolic BP of at least 140 to 150 mm or less Suspect that she may have component of white coat syndrome or her blood pressure is partly anxiety-driven as her blood pressure is often high when checked here in the office but has been consistently much lower when she checks it at home Her BP was initially high at 158/100 but repeat blood pressure once she has settled down in the exam room came back much better at 130/90 Continue Amlodipine 5 mg QD Patient is reminded to continue monitoring her blood pressure regularly (4) Pure hypercholesterolemia: Code(s): E78.00 - Pure hypercholesterolemia, unspecified Plan: Results of her labs done last month reviewed and discussed with patient - lipids have increased again significantly from previous Reinforced low cholesterol diet She was started on Praluent injections 300 mg Q 4 weeks a few months ago and has not had any reactions or side effects so far to the Rx but she could not afford to continue paying the high co-pay for her Rx so she has again been out of it for a while She could not tolerate both Rosuvastatin 60 mg QD and Atorvastatin 80 mg QD - had abdominal pain on BOTH medications and her LDL cholesterol never did get to goal even when she was on Rosuvastatin 40 mg QD for the past couple of years She also could not tolerate Ezetimibe due to side effects Will try starting her instead on Repatha injections at 140 mg SQ every 4 weeks - have instructed patient to inform us JOSE if she cannot get this Rx filled for any reason so we can try to get this approved and get her started on this JOSE Will recheck her labs and fasting lipids in 4 months for follow up (5) Acquired hypothyroidism: Code(s): E03.9 - Hypothyroidism, unspecified Plan: Continue Levothyroxine 100 mcg QD Will recheck her TFTs in 4 months for follow up (6) Gastritis: Code(s): K29.70 - Gastritis, unspecified, without bleeding Qualifiers: Chronicity: unspecified Gastritis bleeding: without bleeding Gastritis type: unspecified gastritis Qualified Code(s): K29.70 - Gastritis, unspecified, without bleeding Plan: Resolved - suspect gastritis as the etiology of her previous abdominal pain Abdominal US done a few months ago came out unrevealing Reinforced dietary restrictions Continue Pantoprazole 40 mg QD PRN (7) Inflammatory polyarthropathy: Code(s): M06.4 - Inflammatory polyarthropathy Plan: Follow up with rheumatology as scheduled States that her joint pains (especially over her hands and fingers) have improved a lot since she retired from work a couple of years ago Used to take Celebrex PRN but has not had to take it in a while now (8) Vitamin D deficiency: Code(s): E55.9 - Vitamin D deficiency, unspecified Plan: Continue Vitamin D3 2000 units QD (9) Anxiety: Code(s): F41.9 - Anxiety disorder, unspecified Plan: Has Lorazepam 1 mg tablets that she used to take BID as needed but states that her anxiety has been well-controlled lately and she has not had to take her Lorazepam in a few months now With her upcoming eye surgery, will have her take Lorazepam 0.5 mg 1/2 to 1 hour before her procedure and can take second dose after 15 to 20 minutes if needed to help keep her anxiety controlled and her blood pressure from going up too much due to anxiety (10) Smoker: Code(s): F17.200 - Nicotine dependence, unspecified, uncomplicated Plan: Counseled again on smoking cessation Plan Patient currently appears medically optimized and has no contraindications to undergo cataract surgery with IOL of both eyes as planned - is MEDICALLY CLEARED for surgery Follow up in 4 months Orders: Orders Comprehensive [place]. Panel Fast 4 Months E78.00 - Pure hypercholesterolemia, unspecified Complete Blood Count Auto Diff 4 Months D64.9 - Anemia, unspecified Free T4 (Free Thyroxine) 4 Months E03.9 - Hypothyroidism, unspecified UA CC w/rflx Micro + Cult 4 Months R30.0 - Dysuria Lipid Panel 4 Months E78.00 - Pure hypercholesterolemia, unspecified Thyroid Stimulating Hormone 4 Months E03.9 - Hypothyroidism, unspecified Vitamin D 25-OH Total 4 Months E55.9 - Vitamin D deficiency, unspecified Medications: New lorazepam Take 1 tablet 30 to 60 minutes before procedure as needed for anxiety. May repeat x 1 dose after 10 to 15 minutes if needed. 2 tabs 0RF anxiety 1 day Repatha SureClick (evolocumab) 140 mg subcut Q4W 1 mL 3RF 4 weeks NS Changed From amlodipine 5 mg PO DAILY 30 tabs 0RF To amlodipine 5 mg PO DAILY 90 tabs 1RF 90 days From potassium chloride ER 20 mEq PO DAILY 14 tabs 0RF To potassium chloride ER 20 mEq PO DAILY 90 tabs 1RF 90 days Refilled levothyroxine 100 mcg PO QAM 90 tabs 1RF 90 days cholecalciferol (vitamin D3) 50 mcg PO DAILY 90 caps 3RF 90 days E55.9 - Vitamin D deficiency, unspecified Coding Level of Care Code Est Pt Level 4 (52710) Diagnoses Preoperative examination Z01.818 Cataract of both eyes, unspecified cataract type H26.9 Cataract type: unspecified Benign essential hypertension I10 Pure hypercholesterolemia E78.00 Acquired hypothyroidism E03.9 Gastritis without bleeding, unspecified chronicity, unspecified gastritis type K29.70 Chronicity: unspecified Gastritis bleeding: without bleeding Gastritis type: unspecified gastritis Inflammatory polyarthropathy M06.4 Vitamin D deficiency E55.9 Anxiety F41.9 Smoker F17.200
[2023-12-24 11:58] VITALS: BP 130/90
== END 2023-12-24 12:07 | disposition home or self-care (01) ==
PROVIDERS: PCP Internal Medicine; Visit Provider Internal Medicine
DX: H26.9 Unspecified cataract (principal); M06.4 Inflammatory polyarthropathy; Z01.818 Encounter for other preprocedural examination; I10 Essential (primary) hypertension; E78.00 Pure hypercholesterolemia, unspecified; E03.9 Hypothyroidism, unspecified; K29.70 Gastritis, unspecified, without bleeding; E55.9 Vitamin D deficiency, unspecified; F41.9 Anxiety disorder, unspecified; F17.210 Nicotine dependence, cigarettes, uncomplicated
CPT/HCPCS: 99214

== ENCOUNTER 2024-04-10 09:36 | Outpatient (REF) | payer MEDICARE, SELFPAY ==
[2024-04-10 09:52] LABS: MANUAL DIFF FLAG NO
[2024-04-10 10:58] LABS: Appearance Urine Clear; Color Urine Yellow; Glucose Urine UA Negative (Negative); Leukocyte Esterase Urine Negative (Negative); Nitrite Urine Negative (Negative); PH 7.5 (5.0-9.0); Specific Gravity - Urine 1.015 (1.005-1.025); Urine Blood Negative (Negative); Urine Ketones Negative (Negative); Urine Protein Trace mg/dL (Neg-Trace)
[2024-04-10 11:18] LABS: Basophils Absolute Auto 0.1 X10*3/uL (0.0-0.2); Eosinophils Absolute Auto 0.2 X10*3/uL (0.0-0.4); Eosinophils Percent Auto 3.3 % (0-4); Hematocrit 48.9 % (37.0-47.0); Hemoglobin 16.8 g/dl (12.0-16.0); Imm Gran Abs Auto 0.02 X10*3/uL (0.00-0.03); Imm Gran Pct Auto 0.3 % (0.0-0.4); Lymphocytes Percent Auto 29.3 % (20-40); Mean Corpuscular HGB Conc 34.4 g/dl (31.0-35.0); Mean Corpuscular Hemoglobin 32.4 pg (27.0-33.0); Mean Corpuscular Volume 94.4 fL (80.0-98.0); Mean Platelet Volume 10.8 fL (9.4-12.3); Monocytes Absolute Auto 0.5 X10*3/uL (0.1-1.2); Neutrophils Absolute Auto 4.1 x10*3/uL (2.0-8.3); Neutrophils Percent Auto 59.1 % (45-73); Platelet Count 220 X10*3/uL (160-400); Red Blood Count 5.18 X10*6/uL (4.20-5.50); Red Cell Distribution Width 13.9 % (11.0-16.0)
[2024-04-10 12:09] LABS: Alanine Aminotransferase 10 U/L (0-31); Albumin Level 4.1 g/dL (3.5-5.0); Alkaline Phosphatase 81 U/L (39-117); Anion Gap 12 (12-20); Aspartate Amino Transferase 14 U/L (5-31); Bilirubin Total 0.5 mg/dL (0.0-1.0); Blood Urea Nitrogen 13 mg/dL (9-16); Calcium 9.2 mg/dL (8.4-10.2); Carbon Dioxide 28 mmol/L (22-29); Chloride 103 mmol/L (96-108); Cholesterol 374 mg/dL (<200); Estimated Glomerular Filt Rate > 60; Glucose Fasting 96 mg/dL (60-99); HDL Cholesterol 75 mg/dL (>40); LDL Cholesterol Calculated 276 mg/dL (<100); Potassium 3.8 mmol/L (3.3-5.1); Sodium 139 mmol/L (135-145); Total Protein 6.6 g/dL (6.5-8.0); Triglycerides 119 mg/dL (<150)
[2024-04-10 12:27] LABS: Thyroid Stimulating Hormone 0.73 uIU/mL (0.32-4.0); Vitamin D 25-OH Total 40.9 ng/mL (>30)
== END 2024-04-10 09:37 | disposition home or self-care (01) ==
LOC: HO.LAB 09:36
PROVIDERS: PCP Internal Medicine; Visit Provider Internal Medicine
DX: E78.00 Pure hypercholesterolemia, unspecified (principal); E55.9 Vitamin D deficiency, unspecified; E03.9 Hypothyroidism, unspecified; D64.9 Anemia, unspecified; R30.0 Dysuria
CPT/HCPCS: 36415; 80053; 80061; 81003; 82306; 84439; 84443; 85025

== ENCOUNTER 2024-04-20 12:44 | Outpatient (AMB) | payer MEDICARE, SELFPAY ==
--- NOTE | 2024-04-20 12:51 | MHC.PC.OV ---
Vital Signs 04/20/24 12:52 Height 5 ft 1 in Weight 94 lb 8 oz BMI 17.9 BP 140/82 H Blood Pressure Location Lt brachial Position Sitting Pulse 64 Pulse Source Pulse Oximeter Pulse Oximetry (%) 96 Oxygen Delivery Method Room Air Intake Visit Reasons: 4 month f/u Intake Note: Patient is here to follow up on HTN, Hypothyroidism, Hypercholesterolemia. 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 May repeat x 1 dose after 10 to 15 minutes if needed. 1 day pantoprazole 40 mg PO DAILY 90 days potassium chloride ER 20 mEq PO DAILY 90 days Repatha SureClick (evolocumab) 280 mg (2 mL) subcut Q4W 4 weeks NS Tobacco use date assessed: 04/20/24 Fall risk assessment: No Falls in past year Last assessed Fall Risk: 04/20/24 Dental Screening Dental Screen Date: 12/24/23 HPI 4 month f/u HPI Details Patient comes in today for her follow up visit States that she could not get her Repatha Rx refilled for a while now as her supposed co-pay for her Rx has gone up significantly recently States that she used to pay $20 per Rx ($40 a month) for her Repatha but this apparently has increased to $40 per Rx that she was supposed to get weekly now (?), totaling $160 per month (?) States that she could not afford this any longer if it stays at this tre[place] so she has not gotten her injection in a few weeks now She also recalls experiencing occasional sharp pains over her left elbow while she is doing something and using her arm - recalls that this first occurred while she was out working in her garden and she was carrying something and almost dropped them when her pain occurred States that she thought somebody shot her with a BB gun when her pain occurred - states that the pain now comes and goes but it has not occurred more frequently and the pain is often not as bad She does not recall any recent injury or trauma to her elbow Lastly, adds that she has a recurrent pain over the right side of her neck for a few years now and has gotten cortisone injections there from a doctor over at [address] in the past with (+) relief of her symptoms although she could not recall the name of the doctor Would like to see if she can be referred for injections again She denies any headaches or dizziness Denies any chest pains, no increased SOB No nausea/vomiting, no abdominal pain No change in bowel habits noted She also needs a couple of her other Rx refilled Had her follow up labs done a couple of weeks ago - to discuss her results [facility] Medical History Glaucoma Vitamin D deficiency Smoker Anxiety Inflammatory polyarthropathy Benign essential hypertension Acquired hypothyroidism Pure hypercholesterolemia Surgical History No pertinent past surgical history Family History Father No problems noted. Mother No problems noted. Social History Housing: House Alcohol intake: current Alcohol intake frequency: does not drink Patient Tobacco Use Status: Current everyday Tobacco user Tobacco use type: Cigarette Cigarette Packs Per Day: 1 Cigarettes Per Day: 20 e-Cigarette/Vaping Use: Never Used Second Hand Smoke Exposure: Yes service: No Current occupational status: retired Current occupational exposures/hazards: No Cognitive needs: No Hearing needs: No Vision needs: Yes (reading glasses) Questionnaire Thrive Questionnaire Date Thrive assessed: 12/24/23 ANA-7 AMB Questionnaire ANA-7 Date ANA - 7 assessed: 12/24/23 Source: Developed by Drs. Crow Peacock, Lina Warner, Hecotr Ace and colleagues, with an educational ross from [employer] Review of Systems Const Denies chills, Denies fatigue, Denies fever(s) and Denies headache(s) ENT Denies dysphagia, Denies dizziness, Denies otalgia, Denies headache(s), Reports neck pain (increased especially on the right side near the upper back), Denies odynophagia and Denies sore throat Card Denies chest pain, Denies palpitations and Denies dyspnea Resp Denies cough and Denies dyspnea GI Denies abdominal pain, Denies constipation, Denies dysphagia, Denies heartburn, Denies diarrhea, Denies nausea, Denies odynophagia and Denies vomiting Denies difficulty voiding, Denies nocturia and Denies dysuria Musc Reports arthralgias (on and off, mild, especially over both hands), Denies joint swelling, Denies muscle weakness and Reports neck pain (increased especially on the right side near the upper back) Skin/Breast Denies rash Neuro Denies dizziness and Denies headache(s) Psych Reports anxiety (on and off, causing blood pressure to go up) Endo Denies fatigue and Denies palpitations Physical exam (Primary Care) Vital Signs: Last Vital Signs Pulse 64 04/20/24 12:52 BP 140/82 H 04/20/24 12:52 Pulse Ox 96 04/20/24 12:52 Oxygen Delivery Method Room Air 04/20/24 12:52 BMI result Body Mass Index 17.9 Tobacco/Smoking Status: Tobacco use Status Tobacco use date assessed 04/20/24 04/20/24 12:57 Patient Tobacco Use Status Current everyday Tobacco 04/20/24 12:57 Tobacco use type Cigarette 04/20/24 12:57 e-Cigarette/Vaping Use Never Used 04/20/24 12:57 Thrive Assessment: Date of Thrive Assessment Date Thrive assessed 12/24/23 04/20/24 12:57 Const General: no acute distress and alert HENMT Ears: TM's normal bilaterally and EAC's normal Throat: Yes posterior oropharynx normal and Yes tonsils normal (no TP congestion) Neck Other: (+) tenderness on palpation over the right lower neck / upper back, just above the superior margin of the right scapula Neck: Yes no lymphadenopathy Thyroid: Thyroid normal Resp Auscultation: clear to auscultation bilaterally, no rales and no wheezes Cardio Rate: regular rate Rhythm: regular rhythm Heart sounds: no murmurs GI Palpation (GI): Soft to palpation and nontender Auscultation: normal bowel sounds General: Yes no CVA tenderness Back/Spine/Pelvis Back: no CVA tenderness Cervical Spine: cervical muscular tenderness (over the right side just above the right scapula) Skin Rashes: no rashes Extrem General: Yes no clubbing, cyanosis or edema Right upper extremity: Extremity exam: right hand Details: tenderness Left upper extremity: elbow/forearm Details: tenderness (mild) Location: of the olecranon and hand Details: tenderness Results Reviewed Results Reviewed: Laboratory Tests 04/10/24 04/10/24 09:51 09:52 WBC 7.0 Hgb 16.8 H Hct 48.9 H Plt Count 220 Sodium 139 Potassium 3.8 Creatinine 0.64 Estimated GFR > 60 Fasting Glucose 96 Calcium 9.2 AST 14 ALT 10 Triglycerides 119 Cholesterol 374 H LDL Cholesterol, Calc 276 H HDL Cholesterol 75 25-OH Vitamin D Total 40.9 TSH 0.73 Free T4 1.50 Ur Specific [place] 1.015 Urine Protein Trace Urine Glucose (UA) Negative Urine Blood Negative Urine Nitrite Negative Ur Leukocyte Esterase Negative Assessment and Plan Assessment & Plan (1) Benign essential hypertension: Code(s): I10 - Essential (primary) hypertension Plan: Reinforced low sodium diet - goal is systolic BP of at least 140 to 150 mm or less Suspect that she may have component of white coat syndrome or her blood pressure is partly anxiety-driven as her blood pressure is often high when checked here in the office but has been consistently much lower when she checks it at home Her BP today at 142/80 mm is actually one of the better readings she's had in a long time Continue Amlodipine 5 mg QD Patient is reminded to continue monitoring her blood pressure regularly (2) Pure hypercholesterolemia: Code(s): E78.00 - Pure hypercholesterolemia, unspecified Plan: Results of her labs done a couple of weeks ago reviewed and discussed with patient - her lipids have increased again significantly from previous as she has not been able to get her Repatha injections lately Reinforced low cholesterol diet She has not responded well enough to Praluent injections 300 mg Q 4 weeks in the past and could not afford to stay on the Rx She could not tolerate both Rosuvastatin 60 mg QD and Atorvastatin 80 mg QD - had abdominal pain on BOTH medications and her LDL cholesterol never did get to goal even when she was on Rosuvastatin 40 mg QD for the past couple of years She also could not tolerate Ezetimibe due to side effects Her cholesterol numbers appear to have improved on Repatha injections over the past few months but patient again stopped taking the Rx when her co-pay supposedly went up to $40 per Rx that she was supposed to get weekly now (?), totaling $160 per month (?) - states that she cannot afford her Rx now that she has to take it once a week Have advised patient that we are not sure where her last Rx for Repatha weekly injections came from as her Rx from us has stayed tje same at 1 dose every 4 weeks Will have her try to get back on Repatha injections but will try increasing it to 280 mg Q 4 weeks - she is advised that if she still cannot afford her Rx, then we will just get her back to her previous dose of 140 mg Q 4 weeks Will recheck her labs and fasting lipids in 4 months for follow up (3) Acquired hypothyroidism: Code(s): E03.9 - Hypothyroidism, unspecified Plan: Continue Levothyroxine 100 mcg QD Will recheck her TFTs in 4 months for follow up (4) Gastritis: Code(s): K29.70 - Gastritis, unspecified, without bleeding Qualifiers: Chronicity: unspecified Gastritis bleeding: without bleeding Gastritis type: unspecified gastritis Qualified Code(s): K29.70 - Gastritis, unspecified, without bleeding Plan: Resolved - suspect gastritis as the etiology of her previous abdominal pain Abdominal US done a few months ago came out unrevealing Reinforced dietary restrictions Continue Pantoprazole 40 mg QD PRN (5) Inflammatory polyarthropathy: Code(s): M06.4 - Inflammatory polyarthropathy Plan: Follow up with rheumatology as scheduled States that her joint pains (especially over her hands and fingers) have improved a lot since she retired from work a couple of years ago Used to take Celebrex PRN but has not had to take it in a while now (6) Neck pain on right side: Code(s): M54.2 - Cervicalgia Plan: Patient is currently requesting for a referral to see someone about getting injections again into her right upper back/lower neck area to help relieve her neck pain Will refer her to pain management for consideration for trigger point injection Tx (7) Vitamin D deficiency: Code(s): E55.9 - Vitamin D deficiency, unspecified Plan: Continue Vitamin D3 2000 units QD (8) Anxiety: Code(s): F41.9 - Anxiety disorder, unspecified Plan: Has Lorazepam 1 mg tablets that she used to take BID as needed but states that her anxiety has been well-controlled lately and she has not had to take her Lorazepam in a few months now (9) Smoker: Code(s): F17.200 - Nicotine dependence, unspecified, uncomplicated Plan: Counseled again on smoking cessation Plan Follow up in 4 months Orders: Orders Comprehensive [place]. Panel Fast 4 Months E78.00 - Pure hypercholesterolemia, unspecified Complete Blood Count Auto Diff 4 Months D64.9 - Anemia, unspecified Lipid Panel 4 Months E78.00 - Pure hypercholesterolemia, unspecified Referrals Pain Management Referral M54.2 - Cervicalgia Medications: Changed From pantoprazole 40 mg PO DAILY 30 days 30 tabs 3RF To pantoprazole 40 mg PO DAILY 90 tabs 1RF 90 days From Repatha SureClick (evolocumab) 140 mg subcut Q4W 4 weeks 1 mL 3RF NS To Repatha SureClick (evolocumab) 280 mg (2 mL) subcut Q4W 2 mL 3RF 4 weeks NS Refilled amlodipine 5 mg PO DAILY 90 tabs 1RF 90 days Coding Level of Care Code Est Pt Level 4 (01056) Complex EM visit Add On G2211 Diagnoses Benign essential hypertension I10 Pure hypercholesterolemia E78.00 Acquired hypothyroidism E03.9 Gastritis without bleeding, unspecified chronicity, unspecified gastritis type K29.70 Chronicity: unspecified Gastritis bleeding: without bleeding Gastritis type: unspecified gastritis Inflammatory polyarthropathy M06.4 Neck pain on right side M54.2 Vitamin D deficiency E55.9 Anxiety F41.9 Smoker F17.200
[2024-04-20 12:52] VITALS: BP 140/82; PULSE 64; O2SAT 96; BMI 17.9
== END 2024-04-20 13:37 | disposition home or self-care (01) ==
PROVIDERS: PCP Internal Medicine; Visit Provider Internal Medicine
DX: I10 Essential (primary) hypertension (principal); E78.00 Pure hypercholesterolemia, unspecified; E03.9 Hypothyroidism, unspecified; K29.70 Gastritis, unspecified, without bleeding; M06.4 Inflammatory polyarthropathy; M54.2 Cervicalgia; E55.9 Vitamin D deficiency, unspecified; F41.9 Anxiety disorder, unspecified; F17.200 Nicotine dependence, unspecified, uncomplicated
CPT/HCPCS: 99214; G2211

== ENCOUNTER 2024-04-30 10:22 | Outpatient (AMB) | payer MEDICARE, SELFPAY ==
--- NOTE | 2024-04-30 10:28 | MHC.OFFVIS ---
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 Denies any recent trauma, injury or falls. Reports neck pain for 30 years and has underwent trigger point injection in [id number] by provider in this building, [address] [place] [address] , but cannot recall provider's name. Review of EMR shows left shoulder subacromial steroid injection by Dr. Hall on 11/05/2013 and also seen by [facility] Rheumatology team but no injections given for [id number] EMR review. Patient reports she completed full course physical therapy about 7 years ago and has been regularly performing learned PT exercises at home to maintain range of motion and reduce stiffness and spasms. Neck pain is axial, moderately severe with cervical extension and side rotation. She reports increasing pain during gardening and doing crossword puzzles. Muscle spasms with taut band is localized to left trapezius and mild spasming in the right trapezius. She reports neck lino radiates into her right posterior shoulder and periscapular area. Patient requests trigger point injection today. She presents with elevated blood pressure today. We discussed updating cervical spine imaging given previous findings as noted below and evaluate bone density prior to any steriodal injections. We also discussed diagnostic cervical medial branch blocks. Patient denies any fever, chills, dizziness, headache, chest pain, shortness of breaths, gait imbalance, bladder or bowel dysfunction or saddle anesthesia. Location: Lower neck radiates to right shoulder Duration: Chronic pain 30 years, worsening for past few months Characteristics of symptom or complaint: Aching, stabbing, spasming, tightness, stiffness Aggravating or associated factors: Movements, gardening, cervical extension, reading, looking down Relieving factors: not doing anything , heat/ice, lidocaine patches, OTC creams Treatment: PT, trigger point injections 9 years ago, acupunture [facility] Medical History (Updated 04/30/24 @ 23:09 by CLARISSE Boyle) Right shoulder pain Glaucoma Vitamin D deficiency Smoker Anxiety Inflammatory polyarthropathy Benign essential hypertension Acquired hypothyroidism Pure hypercholesterolemia Surgical History No pertinent past surgical history Family History Father No problems noted. Mother No problems noted. Social History Housing: House Alcohol intake: current Alcohol intake frequency: does not drink Patient Tobacco Use Status: Current everyday Tobacco user Tobacco use type: Cigarette Cigarette Packs Per Day: 1 Cigarettes Per Day: 20 e-Cigarette/Vaping Use: Never Used Second Hand Smoke Exposure: Yes service: No Current occupational status: retired Current occupational exposures/hazards: No Cognitive needs: No Hearing needs: No Vision needs: Yes (reading glasses) Review of Systems Const All systems reviewed & are unremarkable except as noted in HPI and below Physical Exam Vital Signs: Last Vital Signs Pulse 99 04/30/24 10:33 BP 176/99 H 04/30/24 10:33 Pulse Ox 96 04/30/24 10:33 Oxygen Delivery Method Room Air 04/30/24 10:33 BMI result Body Mass Index 18.0 General: Appears afebrile. No acute distress. Thin frame. Alert and oriented. Mood and affect appropriate. Mildly anxious. Follows and participates in conversation appropriately. Respiratory effort is unlabored. No cough. Able to transition from sit to stand unassisted. Ambulates with bilaterally normal heel strike and toe off. Neck Other: Patient with decreased cervical ROM in all planes/especially with right lateral rotation. Reports increased pain with cervical extension and prolonged flexion. Spurling compression test negative. Pain is unchanged by Spurling maneuver with retraction. Elvey's tension test is negative. Lhermitte's test was negative. DTR intact, +2 and symmetrical. Patient demonstrated 5/5 motor strength of bilateral upper extremities. 2 + radial pulses. Significant tightness throughout left upper trapezius as well as mild TTP throughout bilateral upper trapezius muscles. No paravertebral tenderness over facet joints bilaterally. Multiple taut bands palpated throughout left upper trapezius muscles. TTP right posterior shoulder and periscalular area. Neck: Yes normal visual inspection, Yes no lymphadenopathy, Yes supple, No anterior neck swelling, Yes no JVD, No prominent supraclavicular fat pad and No prominent dorsocervical fat pad Back/Spine/Pelvis Cervical Spine: No collar present, No Lhermitte's sign positive, loss of normal cervical lordosis, cervical muscular tenderness, pain with cervical ROM, No Cervical spine scars present, cervical spasm, No Cervical spine tenderness and No step off deformity Thoracic/Lumbar Spine: thoracic and lumbar spine normal to inspection, No Thoracic/lumbar spine scar(s), Lasegue's sign negative, pain with thoraco-lumbar ROM, paraspinal muscle tenderness on the right greater than left, thoraco-lumbar ROM limited, thoracic spinal tenderness (upper thoracic) and lumbar spinal tenderness at L4 and at L5 Sacroiliac joints: bilaterally nontender Extrem General: Yes capillary refill normal, Yes no clubbing, cyanosis or edema and Yes no calf tenderness Right upper extremity: shoulder/upper arm Details: normal to inspection, tenderness Location: over the subacromial bursa and over the deltoid bursa, normal ROM and crepitus; no swelling, no ecchymosis and no unusual warmth Results Reviewed Results Reviewed: XR CERVICAL SPINE 4 VIEWS 07/17/2013 CLINICAL INFORMATION: Right neck pain. COMPARISON: None. TECHNIQUE: Frontal, odontoid, bilateral oblique and lateral views are submitted. FINDINGS: 2 mm anterolistheses are seen at C3-4, C5-6 and C7-T1. There is moderately severe disc space narrowing and spondylosis at C6-7. The remaining disc spaces are well-maintained. No acute fracture or spondylolisthesis is seen. The bilateral neural foramina appear patent. The posterior elements are intact. The dens is intact. There is no prevertebral soft tissue swelling. IMPRESSION: 1. There is moderately severe degenerative disc disease at C6-7. 2. Mild degenerative disc disease is seen at C3-4, C5-6 and C7-T1. 3. No acute fracture or spondylolisthesis is seen. Assessment & Plan Assessment & Plan (1) Inflammatory polyarthropathy: Code(s): M06.4 - Inflammatory polyarthropathy Category: Medical (2) Degenerative disc disease, cervical: Code(s): M50.30 - Other cervical disc degeneration, unspecified cervical region Category: Medical (3) Muscle spasms of neck: Code(s): M62.838 - Other muscle spasm Category: Medical (4) Cervical spondylosis: Code(s): M47.812 - Spondylosis without myelopathy or radiculopathy, cervical region Category: Medical (5) Right shoulder pain: Code(s): M25.511 - Pain in right shoulder Category: Medical Plan Cervical spine imaging to assess degree of degenerative changes, any subluxation, listhesis, compression fractures or pars defects and Bone scan to assess for bone density (thin-framed, BMI<18.5, post-menopausal, age>65, tobacco use, pantoprazole, inflammatory arthritis). Schedule Right Diagnostic C4-C5-C6 MBB with local and fluoroscopy. If she has significant relief from the diagnostic nerve blocks for her axial cervical pain, will consider either therapeutic injections (if normal bone scan), Sprint PNS or RFA depending on her preference. Expectations, risks and benefits were reviewed. Patient is aware she will be contacted to schedule this procedure. All questions and concerns have been answered and patient agreed with the plan. Follow up after injections and sooner as needed. Orders: Orders XR DEXA axial skeleton Today M06.4 - Inflammatory polyarthropathy, M50.30 - Other cervical disc degeneration, unspecified cervical region, Z91.89 - Other specified personal risk factors, not elsewhere classified XR cervical spine min 6V Today M47.812 - Spondylosis without myelopathy or radiculopathy, cervical region, M50.30 - Other cervical disc degeneration, unspecified cervical region, M62.838 - Other muscle spasm Coding Level of Care Code New Pt Level 4 (52056) Diagnoses Inflammatory polyarthropathy M06.4 Degenerative disc disease, cervical M50.30 Muscle spasms of neck M62.838 Cervical spondylosis M47.812 Right shoulder pain M25.511
[2024-04-30 10:33] VITALS: BP 176/99; PULSE 99; O2SAT 96; BMI 18.0
== END 2024-04-30 10:58 | disposition home or self-care (01) ==
PROVIDERS: PCP Internal Medicine; Referring Provider Internal Medicine; Visit Provider Nurse Practitioner Family
DX: M06.4 Inflammatory polyarthropathy (principal); M50.30 Other cervical disc degeneration, unspecified cervical region; M62.838 Other muscle spasm; M47.812 Spondylosis without myelopathy or radiculopathy, cervical region; M25.511 Pain in right shoulder
CPT/HCPCS: 99204

== ENCOUNTER → 2024-04-30 10:22 | Outpatient (BNVA) | payer MEDICARE, SELFPAY | PROVIDERS: PCP Internal Medicine; Referring Provider Internal Medicine; Visit Provider Nurse Practitioner Family | DX: M06.4 Inflammatory polyarthropathy (principal); M50.30 Other cervical disc degeneration, unspecified cervical region; M62.838 Other muscle spasm; M47.812 Spondylosis without myelopathy or radiculopathy, cervical region; M25.511 Pain in right shoulder | CPT/HCPCS: 99202 ==

== ENCOUNTER 2024-05-26 06:22 | Outpatient (REF) | payer MEDICARE, SELFPAY | END 2024-05-26 06:23 | disposition home or self-care (01) | LOC: CF 06:22 | PROVIDERS: Visit Provider Anesthesiology | DX: M06.4 Inflammatory polyarthropathy (principal); M50.30 Other cervical disc degeneration, unspecified cervical region; M62.838 Other muscle spasm; M47.812 Spondylosis without myelopathy or radiculopathy, cervical region; M25.511 Pain in right shoulder; I10 Essential (primary) hypertension; Z53.09 Procedure and treatment not carried out because of other contraindication | CPT/HCPCS: 99212 ==

== ENCOUNTER 2024-05-26 12:40 | Outpatient (AMB) | payer MEDICARE, SELFPAY ==
[2024-05-26 12:47] VITALS: BP 186/110; PULSE 67; RESP 17; O2SAT 96
--- NOTE | 2024-05-26 12:47 | MHC.OFFVIS ---
Vital Signs 05/26/24 12:47 BP 186/110 H Blood Pressure Location Lt brachial Position Sitting Respiration 17 Pulse 67 Pulse Source Pulse Oximeter Pulse Oximetry (%) 96 Oxygen Delivery Method Room Air Intake Visit Reasons: Right Diagnostic C4-C5-C6 MBB Allergies aspirin Adverse Reaction (Intermediate, Verified 04/30/24 10:35) abdominal pain, nausea/vomiting, makes sick ezetimibe [Zetia] Adverse Reaction (Intermediate, Verified 04/30/24 10:35) abdominal pain HPI HPI Right Diagnostic C4-C5-C6 MBB : Details: The patient came today to the operating room to receive diagnostic right medial branch block C4-C5 C6. We measured her blood pressure and her blood pressure was elevated to 190/110. Her heart rate was around 67 beats per minute. That would demonstrate that her blood pressure rather elevated not from anxiety, that it is a chronic effect of hypertension. She would have carry significant risk of stroke even without the procedure. I recommended the patient to go to a primary care physician and re-evaluate her blood pressure medications. She also reported today that she takes her medication regularly however from time to time she forgets to take the medication. She stated today that she forgot to take her medication last night. [facility] Medical History (Updated 05/26/24 @ 13:34 by Heriberto Nelson MD) Right shoulder pain Glaucoma Vitamin D deficiency Smoker Anxiety Inflammatory polyarthropathy Benign essential hypertension Acquired hypothyroidism Pure hypercholesterolemia Surgical History No pertinent past surgical history Family History Father No problems noted. Mother No problems noted. Social History Housing: House Alcohol intake: current Alcohol intake frequency: does not drink Patient Tobacco Use Status: Current everyday Tobacco user Tobacco use type: Cigarette Cigarette Packs Per Day: 1 Cigarettes Per Day: 20 e-Cigarette/Vaping Use: Never Used Second Hand Smoke Exposure: Yes service: No Current occupational status: retired Current occupational exposures/hazards: No Cognitive needs: No Hearing needs: No Vision needs: Yes (reading glasses) Review of Systems Const All systems reviewed & are unremarkable except as noted in HPI and below Physical Exam Vital Signs: Last Vital Signs Pulse 67 05/26/24 12:47 Resp 17 05/26/24 12:47 BP 186/110 H 05/26/24 12:47 Pulse Ox 96 05/26/24 12:47 Oxygen Delivery Method Room Air 05/26/24 12:47 General: Appears afebrile. No acute distress. Thin frame. Alert and oriented. Mood and affect appropriate. Mildly anxious. Follows and participates in conversation appropriately. Respiratory effort is unlabored. No cough. Able to transition from sit to stand unassisted. Ambulates with bilaterally normal heel strike and toe off. Neck Other: Patient with decreased cervical ROM in all planes/especially with right lateral rotation. Reports increased pain with cervical extension and prolonged flexion. Spurling compression test negative. Pain is unchanged by Spurling maneuver with retraction. Elvey's tension test is negative. Lhermitte's test was negative. DTR intact, +2 and symmetrical. Patient demonstrated 5/5 motor strength of bilateral upper extremities. 2 + radial pulses. Significant tightness throughout left upper trapezius as well as mild TTP throughout bilateral upper trapezius muscles. No paravertebral tenderness over facet joints bilaterally. Multiple taut bands palpated throughout left upper trapezius muscles. TTP right posterior shoulder and periscalular area. Neck: Yes normal visual inspection, Yes no lymphadenopathy, Yes supple, No anterior neck swelling, Yes no JVD, No prominent supraclavicular fat pad and No prominent dorsocervical fat pad Back/Spine/Pelvis Cervical Spine: No collar present, No Lhermitte's sign positive, loss of normal cervical lordosis, cervical muscular tenderness, pain with cervical ROM, No Cervical spine scars present, cervical spasm, No Cervical spine tenderness and No step off deformity Thoracic/Lumbar Spine: thoracic and lumbar spine normal to inspection, No Thoracic/lumbar spine scar(s), Lasegue's sign negative, pain with thoraco-lumbar ROM, paraspinal muscle tenderness on the right greater than left, thoraco-lumbar ROM limited, thoracic spinal tenderness (upper thoracic) and lumbar spinal tenderness at L4 and at L5 Sacroiliac joints: bilaterally nontender Extrem General: Yes capillary refill normal, Yes no clubbing, cyanosis or edema and Yes no calf tenderness Right upper extremity: shoulder/upper arm Details: normal to inspection, tenderness Location: over the subacromial bursa and over the deltoid bursa, normal ROM and crepitus; no swelling, no ecchymosis and no unusual warmth Assessment & Plan Assessment & Plan (1) Inflammatory polyarthropathy: Code(s): M06.4 - Inflammatory polyarthropathy Category: Medical (2) Degenerative disc disease, cervical: Code(s): M50.30 - Other cervical disc degeneration, unspecified cervical region Category: Medical (3) Muscle spasms of neck: Code(s): M62.838 - Other muscle spasm Category: Medical (4) Cervical spondylosis: Code(s): M47.812 - Spondylosis without myelopathy or radiculopathy, cervical region Category: Medical (5) Right shoulder pain: Code(s): M25.511 - Pain in right shoulder Category: Medical (6) Hypertension: Code(s): I10 - Essential (primary) hypertension Category: Medical Plan Right Diagnostic C4-C5-C6 MBB with local and fluoroscopy Was rescheduled today. The patient was recommended to treat her blood pressure. After her blood pressure is stable we will we schedule her for the procedure as above. Orders: Orders FL guidance in treatment room Today M50.30 - Other cervical disc degeneration, unspecified cervical region Coding Level of Care Code Est Pt Level 3 (39236) Diagnoses Inflammatory polyarthropathy M06.4 Degenerative disc disease, cervical M50.30 Muscle spasms of neck M62.838 Cervical spondylosis M47.812 Right shoulder pain M25.511 Hypertension I10
== END 2024-05-26 13:08 | disposition home or self-care (01) ==
LOC: HO.PMCPRC 12:40
PROVIDERS: PCP Internal Medicine; Visit Provider Anesthesiology
DX: M06.4 Inflammatory polyarthropathy (principal); M50.30 Other cervical disc degeneration, unspecified cervical region; M62.838 Other muscle spasm; M47.812 Spondylosis without myelopathy or radiculopathy, cervical region; M25.511 Pain in right shoulder; I10 Essential (primary) hypertension
CPT/HCPCS: 99213

== ENCOUNTER 2024-06-03 11:19 | Outpatient (REF) | payer MEDICARE, SELFPAY | END 2024-06-03 11:20 | disposition home or self-care (01) | LOC: HO.MAMMO 11:19 | PROVIDERS: PCP Internal Medicine; Visit Provider Nurse Practitioner Family | DX: Z13.89 Encounter for screening for other disorder (principal) ==

== ENCOUNTER 2024-07-17 13:44 | Outpatient (REF) | payer MEDICARE, SELFPAY ==
--- NOTE | ~2024-07-17 | MM_ITS ---
EXAMINATION: BONE DENSITOMETRY CLINICAL INDICATION: Other cervical disc degeneration, unspecified cervical region. COMPARISON: This is the patient's baseline examination. TECHNIQUE: Using a SnapSense DXA System (software version: 13.1) manufactured by [employer], dual-energy x-ray absorptiometry was performed of the lumbar spine and left hip. The images are of good technical quality. Summary results are attached. FINDINGS: LEFT FEMUR, NECK: BMD 0.494 g/cm2, Z-score -1.6, T-score -3.9, osteoporosis. LEFT FEMUR, TOTAL: BMD 0.502 g/cm2, Z-score -1.8, T-score -4.0, osteoporosis. AP SPINE L1-L4: BMD 0.647 g/cm2, Z-score -2.0, T-score -4.4, osteoporosis. IDENTIFIED RISK FACTORS: Menopause, low body weight, tobacco use (current smoker). HISTORY OF FRACTURE: None listed. MEDICATIONS: Vitamin D. MM/XR DEXA axial skeleton IMPRESSION: 1. DIAGNOSIS: Osteoporosis based on the lowest T-score value of -4.4 in the lumbar spine applying World Health Organization criteria. 2. 10-YEAR FRACTURE RISK PREDICTION, FRAX: According to the guidelines, FRAX calculation should only be performed on patients in the osteopenia bone density category. Therefore, FRAX was not performed on this patient. 3. Treatment Recommendations: NOF guidelines recommend consideration for treatment in postmenopausal women and men age 50 and older presenting with the following: -A hip or vertebral (clinical or morphometric) fracture. -T-score less than or equal to -2.5 at the femoral neck or spine after appropriate evaluation to exclude secondary causes. -Low bone mass at the hip or spine and a 10-year fracture probability by FRAX of greater than or equal to 3% for hip fracture or greater than or equal to 20% for major osteoporotic fracture based on the [place] adapted WHO algorithm. 4. Other Recommendations: All treatment decisions require clinical judgment and consideration of individual patient factors, including patient preferences, comorbidities, previous drug use, risk factors not captured in the FRAX model (e.g. frailty, falls, vitamin D deficiency, increased bone turnover, interval significant decline in bone density) and possible under or overestimation of fracture risk by FRAX. Additional medical evaluation for secondary cause of low bone mineral density may be appropriate. FUTURE SCAN RECOMMENDATION: People with diagnosed cases of osteoporosis or at high risk for fracture should have regular bone mineral density tests. For patients eligible for Medicare, routine testing is allowed once every 2 years. The testing frequency can be increased to one year for patients who have rapidly progressing disease, those who are receiving or discontinuing medical therapy to restore bone mass, or have additional risk factors. Electronically signed by: Rob Burden MD 07/22/2024 09:41 AM EDT
== END 2024-07-17 13:45 | disposition home or self-care (01) ==
LOC: HO.MAMMO 13:44
PROVIDERS: Visit Provider Internal Medicine
DX: M50.30 Other cervical disc degeneration, unspecified cervical region (principal); Z78.0 Asymptomatic menopausal state; M06.4 Inflammatory polyarthropathy; Z91.89 Other specified personal risk factors, not elsewhere classified; Z13.820 Encounter for screening for osteoporosis
CPT/HCPCS: 77080

== ENCOUNTER 2024-07-30 12:32 | Outpatient (AMB) | payer MEDICARE, SELFPAY ==
[2024-07-30 13:04] VITALS: BP 140/98; PULSE 84; O2SAT 97
--- NOTE | 2024-07-30 13:04 | AM.OFFWIN_ITS ---
Intake Vital Signs 07/30/24 13:04 Weight 97 lb BP 140/98 H Blood Pressure Location Lt brachial Position Sitting Pulse 84 Pulse Source Pulse Oximeter Pulse Oximetry (%) 97 Oxygen Delivery Method Room Air Intake Visit Reasons: EP-rt eye bee sting Intake Note: Patient here for bee sting of right arm. bee sting initially happened about one week ago and is worsening, feels warm to the touch and swollen. Patient Tobacco Use Status: Current everyday Tobacco user Allergies aspirin Adverse Reaction (Intermediate, Verified 07/30/24 13:11) abdominal pain, nausea/vomiting, makes sick ezetimibe [Zetia] Adverse Reaction (Intermediate, Verified 07/30/24 13:11) abdominal pain Do you need a note to return to daycare/school/sports/work: No HPI EP-rt eye bee sting HPI Details This note is constructed using voice recognition software. While every effort has been made to ensure accuracy, binder selector errors may have been included. The patient is a 74 year old female who presents to the clinic today one-week after sustaining sting from be to right upper arm. She has been stung by bees before, and has never had any allergic reaction. She notes that there was a stinger present she did have to remove it herself, and she has had just a little bit of redness around the area. She has been taking Benadryl because the area has been itchy, however she is concerned because this makes her feel tired. She would like something that is not as strong and we will make her less sleepy. She also notes that she is using Benadryl cream locally, and taking Tylenol initially for pain. [facility] Medical History (Updated 07/23/24 @ 22:34 by CLARISSE Boyle) Right shoulder pain Glaucoma Vitamin D deficiency Smoker Anxiety Inflammatory polyarthropathy Benign essential hypertension Acquired hypothyroidism Pure hypercholesterolemia Surgical History No pertinent past surgical history Family History Father No problems noted. Mother No problems noted. Social History Housing: House Alcohol intake: current Alcohol intake frequency: does not drink Patient Tobacco Use Status: Current everyday Tobacco user Tobacco use type: Cigarette Cigarette Packs Per Day: 1 Cigarettes Per Day: 20 e-Cigarette/Vaping Use: Never Used Second Hand Smoke Exposure: Yes service: No Current occupational status: retired Current occupational exposures/hazards: No Cognitive needs: No Hearing needs: No Vision needs: Yes (reading glasses) Review of Systems Const All systems reviewed & are unremarkable except as noted in HPI and below Physical Exam Vital Signs: Last Vital Signs Pulse 84 07/30/24 13:04 BP 140/98 H 07/30/24 13:04 Pulse Ox 97 07/30/24 13:04 Oxygen Delivery Method Room Air 07/30/24 13:04 Const General: cooperative, healthy appearing, comfortable, no acute distress and alert Orientation/consciousness: patient oriented x3 Limitations: no limitations Eyes General: appearance normal, both eyes and all related structures Resp Effort & Inspection: normal respiratory effort and able to speak in complete sentences Skin Other: Pinpoint sting site to right upper arm with no erythema or warmth or discharge, or any signs of secondary bacterial infection. General skin exam: elasticity normal and turgor normal Neuro General: patient oriented x3 Psych Appearance: grossly normal Mental Status: mental status grossly normal Speech and movement: Normal speech and movement present Affect: normal affect Assessment & Plan Assessment & Plan (1) Bee sting: Code(s): T63.441A - Toxic effect of venom of bees, accidental (unintentional), initial encounter Qualifiers: Encounter type: initial encounter Injury intent: accidental or unintentional Qualified Code(s): T63.441A - Toxic effect of venom of bees, accidental (unintentional), initial encounter Plan: No obvious infection to the area. We will prescribe hydroxyzine for symptomatic management of the itch. Advised patient to do warm compresses should she need to for itch. She should follow up as needed with worsening or failure to r esolve. Reviewed signs of systemic infection including streaking and fevers. Plan See above for full details and plan. Medications: New hydroxyzine HCl 10 mg PO TID 3 days PRN 9 tabs 0RF itching Coding Level of Care Code Est Pt Level 3 (53671) Diagnoses Bee sting, accidental or unintentional, initial encounter T63.441A Encounter type: initial encounter Injury intent: accidental or unintentional
== END 2024-07-30 13:37 | disposition home or self-care (01) ==
PROVIDERS: PCP Internal Medicine; Visit Provider Registered Nurse
DX: T63.441A Toxic effect of venom of bees, accidental (unintentional), initial encounter (principal)

== ENCOUNTER → 2024-07-30 12:32 | Outpatient (BNVA) | payer MEDICARE, SELFPAY | PROVIDERS: PCP Internal Medicine | DX: T63.441A Toxic effect of venom of bees, accidental (unintentional), initial encounter (principal); Y92.9 Unspecified place or not applicable | CPT/HCPCS: 99212 ==

== ENCOUNTER 2024-08-11 09:06 | Outpatient (REF) | payer MEDICARE, SELFPAY ==
[2024-08-11 09:27] LABS: MANUAL DIFF FLAG NO
[2024-08-11 09:46] LABS: Basophils Percent Auto 0.4 % (0-2); Eosinophils Absolute Auto 0.2 X10*3/uL (0.0-0.4); Eosinophils Percent Auto 3.2 % (0-4); Hemoglobin 15.4 g/dl (12.0-16.0); Imm Gran Abs Auto 0.02 X10*3/uL (0.00-0.03); Imm Gran Pct Auto 0.3 % (0.0-0.4); Lymphocytes Absolute Auto 1.9 X10*3/uL (1.2-4.9); Lymphocytes Percent Auto 27.7 % (20-40); Mean Corpuscular HGB Conc 34.2 g/dl (31.0-35.0); Mean Corpuscular Hemoglobin 32.2 pg (27.0-33.0); Mean Corpuscular Volume 93.9 fL (80.0-98.0); Monocytes Absolute Auto 0.4 X10*3/uL (0.1-1.2); Monocytes Percent Auto 6.1 % (2-11); Neutrophils Absolute Auto 4.3 x10*3/uL (2.0-8.3); Neutrophils Percent Auto 62.3 % (45-73); Platelet Count 221 X10*3/uL (160-400); Red Blood Count 4.79 X10*6/uL (4.20-5.50); Red Cell Distribution Width 13.5 % (11.0-16.0); White Blood Count 6.9 X10*3/uL (4.8-10.8)
[2024-08-11 10:03] LABS: Alanine Aminotransferase 9 U/L (0-31); Albumin Level 4.1 g/dL (3.5-5.0); Alkaline Phosphatase 78 U/L (39-117); Anion Gap 11 (12-20); Aspartate Amino Transferase 15 U/L (5-31); Bilirubin Total 0.6 mg/dL (0.0-1.0); Blood Urea Nitrogen 11 mg/dL (9-16); Calcium 9.3 mg/dL (8.4-10.2); Carbon Dioxide 30 mmol/L (22-29); Chloride 103 mmol/L (96-108); Cholesterol 226 mg/dL (<200); Estimated Glomerular Filt Rate > 60; Glucose Fasting 107 mg/dL (60-99); HDL Cholesterol 85 mg/dL (>40); LDL Cholesterol Calculated 128 mg/dL (<100); Sodium 140 mmol/L (135-145); Total Protein 6.6 g/dL (6.5-8.0); Triglycerides 69 mg/dL (<150)
== END 2024-08-11 09:07 | disposition home or self-care (01) ==
LOC: HO.LAB 09:06
PROVIDERS: PCP Internal Medicine; Visit Provider Internal Medicine
DX: D64.9 Anemia, unspecified (principal); E78.00 Pure hypercholesterolemia, unspecified
CPT/HCPCS: 36415; 80053; 80061; 85025

== ENCOUNTER 2024-08-24 12:59 | Outpatient (AMB) | payer MEDICARE, SELFPAY ==
[2024-08-24 13:10] VITALS: BP 144/90; PULSE 62; O2SAT 96; BMI 18.2
--- NOTE | 2024-08-24 13:10 | MHC.PC.OV ---
Vital Signs 08/24/24 13:10 Height 5 ft 1 in Weight 96 lb 6 oz BMI 18.2 BP 144/90 H Blood Pressure Location Lt brachial Position Sitting Pulse 62 Pulse Source Pulse Oximeter Pulse Oximetry (%) 96 Oxygen Delivery Method Room Air Intake Visit Reasons: 4mof\u Manager Graphic Required: No Accompanied by: Self / Same As Patient Allergies aspirin Adverse Reaction (Intermediate, Verified 08/24/24 13:42) abdominal pain, nausea/vomiting, makes sick ezetimibe [Zetia] Adverse Reaction (Intermediate, Verified 08/24/24 13:42) abdominal pain Medication List - Last Reconciled 08/24/24 by Jose Vivar MD amlodipine 7.5 mg (1.5 x 5 mg) PO DAILY 90 days cholecalciferol (vitamin D3) 50 mcg PO DAILY 90 days hydroxyzine HCl 10 mg PO TID PRN 3 days levothyroxine 100 mcg PO QAM 90 days lorazepam Take 1 tablet 30 to 60 minutes before procedure as needed for anxiety. May repeat x 1 dose after 10 to 15 minutes if needed. 1 day pantoprazole 40 mg PO DAILY 90 days potassium chloride ER 20 mEq PO DAILY 90 days Repatha SureClick (evolocumab) 280 mg (2 mL) subcut Q4W 4 weeks NS Tobacco use date assessed: 08/24/24 Fall risk assessment: No Falls in past year Last assessed Fall Risk: 08/24/24 Dental Screening Dental Screen Date: 08/24/24 Did you have a dental visit in the last 12 months?: No Did you have a dental problem in the last 6 months where you did not have access to dental care?: No Was dental information given to patient?: No HPI 4mof\u HPI Details Patient comes in today for her follow up visit States that she feels okay but has been under a lot of stress lately as she is concerned about her daughter, who appears to be suffering from a nervous breakdown but is refusing to go see a doctor She is still doing well with Repatha but even though we dropped her dosing to once a month at her last visit, she still has to shell out about $40 per month (per Rx) States that she is able to put up with the cost for now but is not sure how long she can keep going as she is retired and is only on a limited income States that she has been tolerating the Rx so far without any side effects or issues She denies any headaches or dizziness Denies any chest pains, no SOB No nausea/vomiting, no abdominal pain No change in bowel habits noted She had her follow up labs done a couple of weeks ago - to discuss her results [facility] Medical History Right shoulder pain Glaucoma Vitamin D deficiency Smoker Anxiety Inflammatory polyarthropathy Benign essential hypertension Acquired hypothyroidism Pure hypercholesterolemia Surgical History No pertinent past surgical history Family History Father No problems noted. Mother No problems noted. Social History Housing: House Alcohol intake: current Alcohol intake frequency: does not drink Patient Tobacco Use Status: Current everyday Tobacco user Tobacco use type: Cigarette Cigarette Packs Per Day: 1 Cigarettes Per Day: 20 e-Cigarette/Vaping Use: Never Used Second Hand Smoke Exposure: Yes service: No Current occupational status: retired Current occupational exposures/hazards: No Cognitive needs: No Hearing needs: No Vision needs: Yes (reading glasses) Questionnaire PHQ-9 Over the last 2 weeks, how often have you been bothered by any of the following problems? 1. Little interest or pleasure in doing things: not at all 2. Feeling down, depressed, or hopeless: not at all 3. Trouble falling or staying asleep, or sleeping too much: not at all 4. Feeling tired or having little energy: not at all 5. Poor appetite or overeating: not at all 6. Feeling bad about yourself - or that you are a failure or have let yourself or your family down: not at all 7. Trouble concentrating on things, such as reading the newspaper or watching television: not at all 8. Moving or speaking so slowly that other people could have noticed. Or the opposite - being so fidgety or restless that you have been moving around a lot more than usual: not at all 9. Thoughts that you would be better off or of hurting yourself in some way: not at all Total score: 0 Depression Screening Interpretation: Negative Depression Screening Done: Yes 19500 - PHQ-9 Billing: Yes Source: Developed by Drs. Crow Peacock, Lina Warner, Hector Ace and colleagues, with an educational ross from [employer]. Thrive Questionnaire Date Thrive assessed: 08/24/24 I am a: Patient What is your living situation today?: I have a steady place to live Within the past 12 months, did the food you bought not last and you didn't have the money to get more?: Never true Within the past 12 months, did you worry whether your food would run out before you got money to buy more?: Never true Do you have trouble paying for medicines?: No Do you have trouble getting transportation to medical appointments?: No Do you have trouble paying your heating and electricity bill?: No Do you have trouble taking care of your child, family member or friend?: No Do you have trouble with day-to-day activities such as bathing, preparing meals, shopping, managing finances, etc.?: No Are you currently unemployed and looking for a job?: No Are you interested in more education?: No Please select the resources that you would like help with: None Currently or been in a relationship where the following occur: No concerns reported THRIVE Score: 0 AUDIT C Alcohol Use Questionnaire (AUDIT-C) 1. How often do you have a drink containing alcohol?: Never 3. How often do you have six or more drinks on one occasion?: Never Total Score: 0 Score Reviewed/Action Taken: Yes ANA-7 AMB Questionnaire ANA-7 Date ANA - 7 assessed: 08/24/24 Feeling nervous, anxious, or on edge: 0 = Not at all Not being able to stop or control worryin = Not at all Worrying too much about different things: 0 = Not at all Trouble relaxin = Not at all Being so restless that it is hard to sit still: 0 = Not at all Becoming easily annoyed or irritable: 0 = Not at all Feeling afraid as if something awful might happen: 0 = Not at all Total ANA-7 score (0-4 normal; 5-9 mild; 10-14 moderate; 15-21 severe): 0 Source: Developed by Lina Frias, Hector Ace and colleagues, with an educational ross from [employer]. Review of Systems Const Denies chills, Denies fatigue, Denies fever(s) and Denies headache(s) ENT Denies dysphagia, Denies dizziness, Denies otalgia, Denies headache(s), Reports neck pain (especially on the right side, near the right upper back area), Denies odynophagia and Denies sore throat Card Denies chest pain, Denies palpitations and Denies dyspnea Resp Denies chest congestion, Denies cough and Denies dyspnea GI Denies abdominal pain, Denies constipation, Denies dysphagia, Denies heartburn, Denies diarrhea, Denies nausea, Denies odynophagia and Denies vomiting Denies difficulty voiding, Denies nocturia, Denies dysuria and Denies urinary urgency Musc Denies back pain, Reports arthralgias (on and off, mild, especially over both hands), Denies joint swelling and Reports neck pain (especially on the right side, near the right upper back area) Skin/Breast Denies rash Neuro Denies dizziness and Denies headache(s) Psych Reports anxiety (on and off, causing blood pressure to go up) Endo Denies fatigue and Denies palpitations Physical exam (Primary Care) Vital Signs: Last Vital Signs Pulse 62 08/24/24 13:10 BP 144/90 H 08/24/24 13:10 Pulse Ox 96 08/24/24 13:10 Oxygen Delivery Method Room Air 08/24/24 13:10 BMI result Body Mass Index 18.2 Tobacco/Smoking Status: Tobacco use Status Tobacco use date assessed 08/24/24 08/24/24 13:12 Patient Tobacco Use Status Current everyday Tobacco 08/24/24 13:12 Tobacco use type Cigarette 08/24/24 13:12 e-Cigarette/Vaping Use Never Used 08/24/24 13:12 PHQ-9: PHQ-9 Score PHQ-9: Total score 0 08/24/24 13:23 Depression Screening Interpretation: Negative Thrive Assessment: Date of Thrive Assessment Date Thrive assessed 08/24/24 08/24/24 13:12 Currently or been in a relationship where the following occur: No concerns reported Const General: no acute distress and alert HENMT Ears: TM's normal bilaterally and EAC's normal Throat: Yes posterior oropharynx normal and Yes tonsils normal (no TP congestion) Neck Other: (+) tenderness on palpation over the right lower neck / upper back, just above the superior margin of the right scapula Neck: Yes no lymphadenopathy Thyroid: Thyroid normal Resp Auscultation: clear to auscultation bilaterally, no rales and no wheezes Cardio Rate: regular rate Rhythm: regular rhythm Heart sounds: no murmurs GI Palpation (GI): Soft to palpation and nontender Auscultation: normal bowel sounds General: Yes no CVA tenderness Back/Spine/Pelvis Back: no CVA tenderness Cervical Spine: cervical muscular tenderness (over the right side just above the right scapula) Thoracic/Lumbar Spine: No lumbar spinal tenderness Skin Rashes: no rashes Extrem General: Yes no clubbing, cyanosis or edema Right upper extremity: Extremity exam: right hand Details: tenderness Left upper extremity: elbow/forearm Details: tenderness (mild) Location: of the olecranon and hand Details: tenderness Office Procedures Flu Questionnaire Does the patient have a severe egg allergy?: No Immunizations Fluarix Triv [id number] (PF) 45 mcg (15 mcg x 3)/0.5 mL IM syringe Performing Provider: Jose Vivar MD [facility] [place] Documented (not given) by: WENDY Lee on 08/24/24 13:23 Reason Not Given: Patient Refused Results Reviewed Results Reviewed: Laboratory Tests 04/10/24 08/11/24 09:51 09:26 WBC 6.9 Hgb 15.4 Hct 45.0 Plt Count 221 Sodium 140 Potassium 4.0 Creatinine 0.76 Estimated GFR > 60 Fasting Glucose 107 H Calcium 9.3 AST 15 ALT 9 Triglycerides 69 Cholesterol 374 H 226 H LDL Cholesterol, Calc 276 H 128 H HDL Cholesterol 85 Coding Level of Care Code Est Pt Level 4 (34877) Diagnoses Pure hypercholesterolemia E78.00 Benign essential hypertension I10 Acquired hypothyroidism E03.9 Gastritis without bleeding, unspecified chronicity, unspecified gastritis type K29.70 Gastritis type: unspecified gastritis Chronicity: unspecified Gastritis bleeding: without bleeding Inflammatory polyarthropathy M06.4 Age-related osteoporosis without current pathological fracture M81.0 Osteoporosis type: age-related Presence of current pathological fracture: without current pathological fracture Neck pain on right side M54.2 Vitamin D deficiency E55.9 Anxiety F41.9 Smoker F17.200 Assessment & Plan Assessment & Plan (1) Pure hypercholesterolemia: Code(s): E78.00 - Pure hypercholesterolemia, unspecified Category: Medical Plan: Results of her labs done a couple of weeks ago reviewed and discussed with patient - her lipids have improved significantly from previous now that she is back on her Repatha injections but states that even though we adjusted her dose to 280 mg every 4 weeks, she still has to put up a co-pay of $40 per Rx per month and she is not sure how long she can afford to keep this up Have printed out a patient assistance form for Repatha for patient to fill out and we will see if she qualifies for assistance Reinforced low cholesterol diet She has not responded well enough to Praluent injections 300 mg Q 4 weeks in the past and could not afford to stay on the Rx She could not tolerate both Rosuvastatin 60 mg QD and Atorvastatin 80 mg QD - had abdominal pain on BOTH medications and her LDL cholesterol never did get to goal even when she was on Rosuvastatin 40 mg QD for the past couple of years She also could not tolerate Ezetimibe due to side effects Will recheck her labs and fasting lipids in 4 months for follow up (2) Benign essential hypertension: Code(s): I10 - Essential (primary) hypertension Category: Medical Plan: Reinforced low sodium diet - goal is systolic BP of at least 140 to 150 mm or less Suspect that she may have component of white coat syndrome or her blood pressure is partly anxiety-driven as her blood pressure is often high when checked here in the office but has been consistently much lower when she checks it at home Her BP today at 144/90 mm Continue Amlodipine 5 mg QD Patient is reminded to continue monitoring her blood pressure regularly (3) Acquired hypothyroidism: Code(s): E03.9 - Hypothyroidism, unspecified Category: Medical Plan: Continue Levothyroxine 100 mcg QD Will recheck her TFTs in 4 months for follow up (4) Gastritis: Code(s): K29.70 - Gastritis, unspecified, without bleeding Category: Medical Qualifiers: Gastritis type: unspecified gastritis Chronicity: unspecified Gastritis bleeding: without bleeding Qualified Code(s): K29.70 - Gastritis, unspecified, without bleeding Plan: Resolved - suspect gastritis as the etiology of her previous abdominal pain Abdominal US done last year (2022) came out unrevealing Reinforced dietary restrictions Continue Pantoprazole 40 mg QD PRN (5) Inflammatory polyarthropathy: Code(s): M06.4 - Inflammatory polyarthropathy Category: Medical Plan: States that her joint pains (especially over her hands and fingers) have improved a lot since she retired from work a couple of years ago She used to take Celebrex PRN but has not had to take it in a while now Follow up with rheumatology as scheduled (6) Osteoporosis: Code(s): M81.0 - Age-related osteoporosis without current pathological fracture Category: Medical Qualifiers: Osteoporosis type: age-related Presence of current pathological fracture: without current pathological fracture Qualified Code(s): M81.0 - Age-related osteoporosis without current pathological fracture Plan: Her initial BMD done last month (on 07/17/2024) revealed (+) osteoporosis based on the lowest T-score value of -4.4 in the lumbar spine Discussed fall precautions Have advised patient to make sure she is taking her Vitamin D and Calcium supplements daily Will hold off on starting her on Rx for now as she just recently started back on Repatha and is still struggling with covering the cost of her Rx (7) Neck pain on right side: Code(s): M54.2 - Cervicalgia Category: Medical Plan: She has been receiving trigger point injections from pain management recently, with (+) temporary relief of her neck pain Follow up with pain management as scheduled (8) Vitamin D deficiency: Code(s): E55.9 - Vitamin D deficiency, unspecified Category: Surgical Plan: Continue Vitamin D3 2000 units QD (9) Anxiety: Code(s): F41.9 - Anxiety disorder, unspecified Category: Medical Plan: She has Lorazepam 1 mg tablets that she used to take BID as needed but states that her anxiety has been well-controlled lately (until her daughter's recent issues) and she has not had to take her Lorazepam in a few months now (10) Smoker: Code(s): F17.200 - Nicotine dependence, unspecified, uncomplicated Category: Social Hx Plan: Counseled again on smoking cessation Plan Follow up in 4 months Orders: Orders Complete Blood Count Auto Diff 4 Months D64.9 - Anemia, unspecified Comprehensive Downs. Panel Fast 4 Months E78.00 - Pure hypercholesterolemia, unspecified Free T4 (Free Thyroxine) 4 Months E03.9 - Hypothyroidism, unspecified Influenza [id number] Immunization Today Z23 - Encounter for immunization Lipid Panel 4 Months E78.00 - Pure hypercholesterolemia, unspecified Erythrocyte Sedimentation Rate 4 Months M06.4 - Inflammatory polyarthropathy C Reactive Protein 4 Months M06.4 - Inflammatory polyarthropathy Thyroid Stimulating Hormone 4 Months E03.9 - Hypothyroidism, unspecified UA CC w/rflx Micro + Cult 4 Months R30.0 - Dysuria Vitamin D 25-OH Total 4 Months E55.9 - Vitamin D deficiency, unspecified
== END 2024-08-24 13:55 | disposition home or self-care (01) ==
PROVIDERS: PCP Internal Medicine; Visit Provider Internal Medicine
DX: E78.00 Pure hypercholesterolemia, unspecified (principal); M06.4 Inflammatory polyarthropathy; I10 Essential (primary) hypertension; E03.9 Hypothyroidism, unspecified; K29.70 Gastritis, unspecified, without bleeding; M81.0 Age-related osteoporosis without current pathological fracture; M54.2 Cervicalgia; E55.9 Vitamin D deficiency, unspecified; F41.9 Anxiety disorder, unspecified; F17.200 Nicotine dependence, unspecified, uncomplicated

== ENCOUNTER → 2024-08-24 12:59 | Outpatient (BNVA) | payer MEDICARE, SELFPAY | PROVIDERS: PCP Internal Medicine; Visit Provider Internal Medicine | DX: E78.00 Pure hypercholesterolemia, unspecified (principal); I10 Essential (primary) hypertension; E03.9 Hypothyroidism, unspecified; K29.70 Gastritis, unspecified, without bleeding; M06.4 Inflammatory polyarthropathy; M81.0 Age-related osteoporosis without current pathological fracture; M54.2 Cervicalgia; E55.9 Vitamin D deficiency, unspecified; F41.9 Anxiety disorder, unspecified; F17.210 Nicotine dependence, cigarettes, uncomplicated; Z79.899 Other long term (current) drug therapy | CPT/HCPCS: 90471; 96127; 99212 ==

== ENCOUNTER 2024-08-25 10:40 | Outpatient (AMB) | payer MEDICARE, SELFPAY ==
[2024-08-25 10:44] VITALS: BP 132/90; PULSE 83; BMI 18.8
--- NOTE | 2024-08-25 10:44 | A.OFFVIS_ITS ---
Vital Signs 08/25/24 10:44 Height 5 ft 1 in Weight 99 lb 10.383 oz BMI 18.8 BP 132/90 H Blood Pressure Location Lt brachial Position Sitting Pulse 83 Pulse Source Pulse Oximeter Intake Visit Reasons: Age-related osteoporosis-conf Intake Note: Patient present today for age related Osteoporosis. 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 May repeat x 1 dose after 10 to 15 minutes if needed. 1 day pantoprazole 40 mg PO DAILY 90 days potassium chloride ER 20 mEq PO DAILY 90 days Repatha SureClick (evolocumab) 280 mg (2 mL) subcut Q4W 4 weeks NS HPI Comments Details: 74-year-old female coming in today for initial evaluation of osteoporosis. Diagnosed on bone density scan in July 2024, I reviewed the images myself lumbar spine T-score of-4.4, femoral neck T-score-3.9 and total femur T-score of -4. Diagnosed in July 2024 Fracture History: no fractures Height loss: 5 ' 2 was maximum height , now 5 1 Back pain: HAs shoulder and neck pain for may years Pharmacotherapeutic hx: None Drug holiday None Family history: None of osteoporosis and no parent fractured hip Estrogen use: no HRT. no OCPs Menstrual hx: Menarche: she doesnt remember age but says it was at normal age. Menopause: at 50 years 2 pregnancies, period used to be regular in the past. Secondary risk factors: Steroid use: None Hyperthyroidism: Neg, has hypothyroidism on levothyroxine Seizure medication use: None Chemo or Radiation use: Neg Heparin Use: Neg History of eating disorder: Negative custodial immobilization: Negative History of kidney stones or disease: negative PI Use: Does take pantoprazole as needed , hasnt needed it for a year Chronic inflammatory lung disease: Negative Chronic inflammatory bowel disease: Negative Daily calcium intake:rarely any milk with oatmeal, no cheese, no yogurt. lots of vegetables. Vitamin D intake: 2000 units daily for at least 2 years Exercise:active with yard work Smoking history:a pack a day for 50 years Dental: has dentures , maybe 4 real teeth Review of systems Constitutional: no fevers, chills or weight loss HEENT: no changes in vision Cardiac: No chest pain, discomfort or palpitations. Pulmonary: No SOB GI:No abdominal pain, no nausea or vomiting, no anorexia, no blood in stool : no burning micturition, dysuria or increase in urinary frequency Physical exam General: sitting comfortably in no acute distress HEENT: normocephalic/atraumatic, , moist oral mucosa Neck: supple, symmetrical, , no dorsocervical or supraclavicular fat pads Cardiac: normal heart sounds Pulm: normal breath sounds B/L, no added breath sounds Abd: not distended, no tenderness Extremities: no edema, no signs of myxedema Neuro: AAO x3, Speech: normal, no facial droop, moving all 4 extremities PFSH Medical History Right shoulder pain Glaucoma Vitamin D deficiency Smoker Anxiety Inflammatory polyarthropathy Benign essential hypertension Acquired hypothyroidism Pure hypercholesterolemia Surgical History Vitamin D deficiency No pertinent past surgical history Family History Father No problems noted. Mother No problems noted. Social History Housing: House Alcohol intake: current Alcohol intake frequency: does not drink Patient Tobacco Use Status: Current everyday Tobacco user Tobacco use type: Cigarette Cigarette Packs Per Day: 1 Cigarettes Per Day: 20 e-Cigarette/Vaping Use: Never Used Second Hand Smoke Exposure: Yes service: No Current occupational status: retired Current occupational exposures/hazards: No Cognitive needs: No Hearing needs: No Vision needs: Yes (reading glasses) Physical Exam Vital Signs: Last Vital Signs Pulse 83 08/25/24 10:44 BP 132/90 H 08/25/24 10:44 BMI result Body Mass Index 18.8 Results Reviewed Results Reviewed: Laboratory Tests 11/29/23 04/10/24 08/11/24 09:37 09:51 09:26 Potassium 3.2 L Creatinine 0.64 0.76 Estimated GFR > 60 > 60 Calcium 9.2 9.3 Albumin 4.1 4.1 25-OH Vitamin D Total 40.9 TSH 0.73 Free T4 1.50 BONE DENSITOMETRY 07/28 I reviewed the images myself, with mean T-score of the lumbar spine of-4.4. Lowest T-score at L3 of -4.6. CLINICAL INDICATION: Other cervical disc degeneration, unspecified cervical region. COMPARISON: This is the patient's baseline examination. TECHNIQUE: Using a [employer]SKT DXA System (software version: 13.1) manufactured by [employer], dual-energy x-ray absorptiometry was performed of the lumbar spine and left hip. The images are of good technical quality. Summary results are attached. FINDINGS: LEFT FEMUR, NECK: BMD 0.494 g/cm2, Z-score -1.6, T-score -3.9, osteoporosis. LEFT FEMUR, TOTAL: BMD 0.502 g/cm2, Z-score -1.8, T-score -4.0, osteoporosis. AP SPINE L1-L4: BMD 0.647 g/cm2, Z-score -2.0, T-score -4.4, osteoporosis. IDENTIFIED RISK FACTORS: Menopause, low body weight, tobacco use (current smoker). HISTORY OF FRACTURE: None listed. MEDICATIONS: Vitamin D. MM/XR DEXA axial skeleton IMPRESSION: 1. DIAGNOSIS: Osteoporosis based on the lowest T-score value of -4.4 in the lumbar spine applying World Health Organization criteria. 2. 10-YEAR FRACTURE RISK PREDICTION, FRAX: According to the guidelines, FRAX calculation should only be performed on patients in the osteopenia bone density category. Therefore, FRAX was not performed on this patient. Assessment & Plan Assessment & Plan (1) Osteoporosis: Code(s): M81.0 - Age-related osteoporosis without current pathological fracture Category: Medical Qualifiers: Osteoporosis type: age-related Presence of current pathological fracture: without current pathological fracture Qualified Code(s): M81.0 - Age- related osteoporosis without current pathological fracture Plan: Patient with new diagnosis of osteoporosis on bone density in July 2024 which showed severe osteoporosis with T-score of-4.4 at the lumbar spine and T- score of-3.9 at the femoral neck and -4 at the total femur. She is at very high-risk of fragility fractures. Her risk factors are age, being post menopausal, active smoker, petite physique, intermittent PPI use, poor nutritional intake of calcium. I discussed conservative measures including adequate calcium intake, adequate vitamin D levels as well as the role of weightbearing exercises in general being good for bone health. In addition to conservative management with calcium and vitamin D; she absolutely would benefit from medications. Given severe osteoporosis with high- risk of fragility fracture she would be a better candidate for anabolic therapy in terms of reducing future fracture risk. Today we discussed options of Evenity, Tymlos, Forteo as well as anti resorptive therapy with Prolia and Reclast. She has never had a heart attack or stroke. I think she would be a great candidate for Evenity. I counseled regarding the mechanism of action, route of administration, common side effects Prior to initiating therapy I would like her to complete work-up to get baseline bone turnover markers as well as rule out secondary causes of osteoporosis. I will see her back in 4 weeks to discuss the results of her secondary workup and start medication. Plan: -continue vitamin-D 2000 units daily -calcium through diet and supplement to amount for 1000 mg daily -weight-bearing exercises discussed -advised to stop smoking -ordered secondary workup with blood tests and 24 hour urine collection -follow up in 4 weeks to review results and plan for start medication (2) Hypertension: Code(s): I10 - Essential (primary) hypertension Category: Medical Qualifiers: Hypertension type: primary hypertension Qualified Code(s): I10 - Essential (primary) hypertension Plan: Patient also noted to have hypokalemia on chart review with a potassium level of 3.2. She is on 20 mEq of potassium daily. She is on amlodipine for hypertension. Her blood pressure has been in the 130-140 systolic and 90s diastolic. We will screen for primary hyperaldosteronism given hypokalemia. Plan: -ordered plasma aldosterone, renin activity, BMP Plan I spent 45 minutes in reviewing the record, seeing the patient and documenting in the medical record. Orders: Orders Renin Today I10 - Essential (primary) hypertension, M81.0 - Age-related osteoporosis without current pathological fracture Aldosterone Today I10 - Essential (primary) hypertension, M81.0 - Age-related osteoporosis without current pathological fracture Basic Metabolic Panel Today I10 - Essential (primary) hypertension, M81.0 - Age-related osteoporosis without current pathological fracture Calcium Today I10 - Essential (primary) hypertension, M81.0 - Age-related osteoporosis without current pathological fracture Immunofixation Pnl, Serum Today I10 - Essential (primary) hypertension, M81.0 - Age-related osteoporosis without current pathological fracture Alkaline Phosphatase Bone Today I10 - Essential (primary) hypertension, M81.0 - Age-related osteoporosis without current pathological fracture Phosphorus Today I10 - Essential (primary) hypertension, M81.0 - Age-related osteoporosis without current pathological fracture Creatinine, 24 Hr Group Today I10 - Essential (primary) hypertension, M81.0 - Age-related osteoporosis without current pathological fracture Protein Electrophoresis, Serum Today I10 - Essential (primary) hypertension, M81.0 - Age-related osteoporosis without current pathological fracture Albumin Level Today I10 - Essential (primary) hypertension, M81.0 - Age-related osteoporosis without current pathological fracture Immunofixation, Random Urine Today I10 - Essential (primary) hypertension, M81.0 - Age-related osteoporosis without current pathological fracture Collagen Type I C-Telopeptide Today I10 - Essential (primary) hypertension, M81.0 - Age-related osteoporosis without current pathological fracture Magnesium Today I10 - Essential (primary) hypertension, M81.0 - Age-related o steoporosis without current pathological fracture Parathyroid Hormone Intact Today I10 - Essential (primary) hypertension, M81.0 - Age-related osteoporosis without current pathological fracture Calcium, 24 Hr Ur Today I10 - Essential (primary) hypertension, M81.0 - Age- related osteoporosis without current pathological fracture Cortisol, Free 24Hr Urine Today I10 - Essential (primary) hypertension, M81.0 - Age-related osteoporosis without current pathological fracture Patient Instructions: Stop smoking Continue Vitamin D 2000 units daily Start taking calcium in your diet plus supplement to amount for 1000 mg daily Calcium supplement options: caltrate or citracal or any calcium 600 mg daily Calcium rich foods are milk, yogurt , cheese. You can opt for 2% milk and yogurt and cottage cheese to avoid fats Spinach also has good calcium. Read up more options for calcium rich foods on https://www.osteoporosis.foundation/(International [employer]opor[employer] Foundation Website. You can read up more on osteoporosis on https://www.osteoporosis.foundation/ Do blood work the same day when you hand in the urine Do 24 hr urine collection 24 hr urine collection instructions You have been asked to collect your urine for 24 hours to assess for calcium excretion. You must choose a 24 hour period of time when you will be home. The morning of the first day, DISCARD the FIRST morning void and then note the time. You will collect every single void from then on for 24 hours. For example, if you wake up at 6am and urinate, flush down that void. You will then collect every drop of urine all day and all night through 6am the following day. You will urinate one last time at 6am for the collection. The jug of urine must be kept in the refrigerator until you bring it to the lab.You have been asked to collect your urine for 24 hours to assess for calcium excretion. You must choose a 24 hour period of time when you will be home. The morning of the first day, DISCARD the FIRST morning void and then note the time. You will collect every single void from then on for 24 hours. For example, if you wake up at 6am and urinate, flush down that void. You will then collect every drop of urine all day and all night through 6am the following day. You will urinate one last time at 6am for the collection. The jug of urine must be kept in the refrigerator until you bring it to the lab. We will meet in 4 weeks to discuss your results At that time we will prescribe medication In the meantime read up on the medications Names: Evinity Karlyo Tymolos Reclast Prolia Coding Level of Care Code New Pt Level 4 (58808) Diagnoses Age-related osteoporosis without current pathological fracture M81.0 Osteoporosis type: age-related Presence of current pathological fracture: without current pathological fracture Primary hypertension I10 Hypertension type: primary hypertension Time Spent (min) 45
== END 2024-08-25 11:39 | disposition home or self-care (01) ==
PROVIDERS: PCP Internal Medicine; Visit Provider Student in an Organized Health Care Education/Training Program
DX: M81.0 Age-related osteoporosis without current pathological fracture (principal); I10 Essential (primary) hypertension
CPT/HCPCS: 99204

== ENCOUNTER → 2024-08-25 10:40 | Outpatient (BNVA) | payer MEDICARE, SELFPAY | PROVIDERS: PCP Internal Medicine; Visit Provider Student in an Organized Health Care Education/Training Program | DX: M81.0 Age-related osteoporosis without current pathological fracture (principal); I10 Essential (primary) hypertension | CPT/HCPCS: 99202 ==

== ENCOUNTER 2024-12-22 09:45 | Outpatient (REF) | payer MEDICARE, SELFPAY ==
[2024-12-22 10:13] LABS: MANUAL DIFF FLAG NO
[2024-12-22 11:22] LABS: Basophils Absolute Auto 0.1 X10*3/uL (0.0-0.2); Basophils Percent Auto 0.8 % (0-2); Eosinophils Absolute Auto 0.2 X10*3/uL (0.0-0.4); Eosinophils Percent Auto 2.5 % (0-4); Hematocrit 48.1 % (37.0-47.0); Hemoglobin 16.4 g/dl (12.0-16.0); Imm Gran Abs Auto 0.03 X10*3/uL (0.00-0.03); Imm Gran Pct Auto 0.5 % (0.0-0.4); Lymphocytes Percent Auto 32.1 % (20-40); Mean Corpuscular HGB Conc 34.1 g/dl (31.0-35.0); Mean Corpuscular Hemoglobin 32.1 pg (27.0-33.0); Mean Corpuscular Volume 94.1 fL (80.0-98.0); Mean Platelet Volume 10.8 fL (9.4-12.3); Monocytes Absolute Auto 0.4 X10*3/uL (0.1-1.2); Monocytes Percent Auto 6.1 % (2-11); Neutrophils Absolute Auto 3.6 x10*3/uL (2.0-8.3); Platelet Count 221 X10*3/uL (160-400); Red Blood Count 5.11 X10*6/uL (4.20-5.50); White Blood Count 6.1 X10*3/uL (4.8-10.8)
[2024-12-22 11:26] LABS: Appearance Urine Clear; Color Urine Yellow; Glucose Urine UA Negative (Negative); Leukocyte Esterase Urine Moderate (2+) (Negative); Nitrite Urine Negative (Negative); UMIC TRIGGER UACC YES; Urine Blood Negative (Negative); Urine Ketones Negative (Negative); Urine Protein Trace mg/dL (Neg-Trace)
[2024-12-22 11:32] LABS: Bacteria Urine 1+ (None Seen); Hyaline Casts Urine 0-2 /LPF (0-2); RBC Urine 0-2 /HPF (0-2); UACC Culture Trigger YES
[2024-12-22 12:01] LABS: Erythrocyte Sedimentation Rate 7 MM/HR (0-20)
[2024-12-22 12:07] LABS: Alanine Aminotransferase 13 U/L (0-31); Albumin Level 4.3 g/dL (3.5-5.0); Alkaline Phosphatase 69 U/L (39-117); Anion Gap 12 (12-20); Aspartate Amino Transferase 19 U/L (5-31); Bilirubin Total 0.8 mg/dL (0.0-1.0); Blood Urea Nitrogen 12 mg/dL (9-16); C Reactive Protein 0.18 mg/dL (< or = 0.50); Calcium 9.7 mg/dL (8.4-10.2); Carbon Dioxide 29 mmol/L (22-29); Chloride 103 mmol/L (96-108); Cholesterol 352 mg/dL (<200); Estimated Glomerular Filt Rate > 60; Glucose Fasting 100 mg/dL (60-99); HDL Cholesterol 79 mg/dL (>40); LDL Cholesterol Calculated 251 mg/dL (<100); Potassium 4.1 mmol/L (3.3-5.1); Sodium 140 mmol/L (135-145); Total Protein 7.4 g/dL (6.5-8.0); Triglycerides 111 mg/dL (<150)
[2024-12-22 12:32] LABS: Free T4 (Free Thyroxine) 1.62 ng/dL (0.71-1.85); Vitamin D 25-OH Total 49.9 ng/mL (>30)
== END 2024-12-22 09:46 | disposition home or self-care (01) ==
LOC: HO.LAB 09:45
PROVIDERS: PCP Internal Medicine; Visit Provider Internal Medicine
DX: M06.4 Inflammatory polyarthropathy (principal); E78.00 Pure hypercholesterolemia, unspecified; E03.9 Hypothyroidism, unspecified; D64.9 Anemia, unspecified; E55.9 Vitamin D deficiency, unspecified; I10 Essential (primary) hypertension
CPT/HCPCS: 36415; 80053; 80061; 81001; 82306; 84439; 84443; 85025; 85652; 86140; 87086

== ENCOUNTER 2024-12-25 10:04 | Outpatient (AMB) | payer MEDICARE, SELFPAY ==
[2024-12-25 10:07] VITALS: BP 128/82; PULSE 65; O2SAT 6; BMI 18.8
--- NOTE | 2024-12-25 10:07 | A.OFFPC_ITS ---
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 Accompanied by: Self / Same As Patient Allergies aspirin Adverse Reaction (Intermediate, Verified 12/25/24 10:37) abdominal pain, nausea/vomiting, makes sick ezetimibe [Zetia] Adverse Reaction (Intermediate, Verified 12/25/24 10:37) abdominal pain Medication List - Last Reconciled 12/25/24 by Jose Vivar MD amlodipine 7.5 mg (1.5 x 5 mg) PO DAILY 90 days calcium carbonate (Calcium 600) 600 mg PO DAILY cholecalciferol (vitamin D3) 50 mcg PO DAILY 90 days hydroxyzine HCl 10 mg PO TID PRN 3 days levothyroxine 100 mcg PO QAM 90 days lorazepam Take 1 tablet 30 to 60 minutes before procedure as needed for anxiety. May repeat x 1 dose after 10 to 15 minutes if needed. 1 day pantoprazole 40 mg PO DAILY 90 days potassium chloride ER 20 mEq PO DAILY 90 days Repatha SureClick (evolocumab) 280 mg (2 mL) subcut Q4W 4 weeks NS Tobacco use date assessed: 12/25/24 Fall risk assessment: No Falls in past year Last assessed Fall Risk: 12/25/24 Dental Screening Dental Screen Date: 12/25/24 Did you have a dental visit in the last 12 months?: No Did you have a dental problem in the last 6 months where you did not have access to dental care?: No Was dental information given to patient?: No [facility] HPI Details Patient comes in today for her follow-up visit States that she has noticed some on and off tremors in hands lately and is wondering if these has anything to do with the injections that she has been getting recently Reports also experiencing some weakness hands at times but states that she overall, she is still able to do most daily activities independently She is scheduled to get her cholesterol medication injection (Repatha) tomorrow - she is supposed to get the injections every 2 weeks but we had to cut her back to once a month because has 2 shell out a co-pay of $40 every time she fills her prescription and patient has indicated that she can not afford to keep doing this for too long as she is retired and is on a limited income She is also now seeing Dr. Hernandez for endocrinology management of her osteoporosis Patient states that she feels okay otherwise She denies any headaches or dizziness Denies any chest pains, no increased shortness of breath No nausea/vomiting, no abdominal pain No change in bowel habits noted She had her follow-up labs done a few days ago - to discuss her results [facility] Medical History Right shoulder pain Glaucoma Smoker Anxiety Inflammatory polyarthropathy Benign essential hypertension Acquired hypothyroidism Pure hypercholesterolemia Surgical History Vitamin D deficiency No pertinent past surgical history Family History Father No problems noted. Mother No problems noted. Social History Housing: House Alcohol intake: current Alcohol intake frequency: does not drink Patient Tobacco Use Status: Current everyday Tobacco user Tobacco use type: Cigarette Cigarette Packs Per Day: 1 Cigarettes Per Day: 20 e-Cigarette/Vaping Use: Never Used Second Hand Smoke Exposure: Yes service: No Current occupational status: retired Current occupational exposures/hazards: No Cognitive needs: No Hearing needs: No Vision needs: Yes (reading glasses) Questionnaire PHQ-9 Over the last 2 weeks, how often have you been bothered by any of the following problems? 1. Little interest or pleasure in doing things: not at all 2. Feeling down, depressed, or hopeless: not at all 3. Trouble falling or staying asleep, or sleeping too much: not at all 4. Feeling tired or having little energy: not at all 5. Poor appetite or overeating: not at all 6. Feeling bad about yourself - or that you are a failure or have let yourself or your family down: not at all 7. Trouble concentrating on things, such as reading the newspaper or watching television: not at all 8. Moving or speaking so slowly that other people could have noticed. Or the opposite - being so fidgety or restless that you have been moving around a lot more than usual: not at all 9. Thoughts that you would be better off or of hurting yourself in some way : not at all Total score: 0 Depression Screening Interpretation: Negative Depression Screening Done: Yes 46092 - PHQ-9 Billing: Yes Source: Developed by Drs. Crow Peacock, Lina Warner, Hector Ace and colleagues, with an educational ross from [employer]. Thrive Questionnaire Date Thrive assessed: 12/25/24 I am a: Patient What is your living situation today?: I have a steady place to live Within the past 12 months, did the food you bought not last and you didn't have the money to get more?: Never true Within the past 12 months, did you worry whether your food would run out before you got money to buy more?: Never true Do you have trouble paying for medicines?: No Do you have trouble getting transportation to medical appointments?: No Do you have trouble paying your heating and electricity bill?: No Do you have trouble taking care of your child, family member or friend?: No Do you have trouble with day-to-day activities such as bathing, preparing meals, shopping, managing finances, etc.?: No Are you currently unemployed and looking for a job?: No Are you interested in more education?: No Please select the resources that you would like help with: None Currently or been in a relationship where the following occur: No concerns reported THRIVE Score: 0 AUDIT C Alcohol Use Questionnaire (AUDIT-C) 1. How often do you have a drink containing alcohol?: Never 3. How often do you have six or more drinks on one occasion?: Never Total Score: 0 Score Reviewed/Action Taken: Yes ANA-7 AMB Questionnaire ANA-7 Date ANA - 7 assessed: 12/25/24 Feeling nervous, anxious, or on edge: 0 = Not at all Not being able to stop or control worryin = Not at all Worrying too much about different things: 0 = Not at all Trouble relaxin = Not at all Being so restless that it is hard to sit still: 0 = Not at all Becoming easily annoyed or irritable: 0 = Not at all Feeling afraid as if something awful might happen: 0 = Not at all Total ANA-7 score (0-4 normal; 5-9 mild; 10-14 moderate; 15-21 severe): 0 Source: Developed by Drs. Crow Peacock, Lina Warner, Hector Ace and colleagues, with an educational ross from [employer]. Review of Systems Const Denies chills, Denies fatigue, Denies fever(s) and Denies headache(s) ENT Denies dysphagia, Denies dizziness, Denies otalgia, Denies headache(s), Reports neck pain (especially on the right side, near the right upper back area), Denies odynophagia and Denies sore throat Card Denies chest pain, Denies palpitations and Denies dyspnea Resp Denies chest congestion, Denies cough and Denies dyspnea GI Denies abdominal pain, Denies constipation, Denies dysphagia, Denies heartburn, Denies diarrhea, Denies nausea, Denies odynophagia and Denies vomiting Denies difficulty voiding, Denies nocturia, Denies dysuria and Denies urinary urgency Musc Denies back pain, Reports arthralgias (on and off, mild, especially over both hands), Denies joint swelling and Reports neck pain (especially on the right side, near the right upper back area) Skin/Breast Denies rash Neuro Denies dizziness, Denies headache(s) and Reports tremor(s) (on and off in the hands lately) Psych Reports anxiety (on and off, causing blood pressure to go up) Endo Denies fatigue and Denies palpitations Physical exam (Primary Care) Vital Signs: Last Vital Signs Pulse 65 12/25/24 10:07 BP 128/82 12/25/24 10:07 Pulse Ox 6 L 12/25/24 10:07 Oxygen Delivery Method Room Air 12/25/24 10:07 BMI result Body Mass Index 18.8 Tobacco/Smoking Status: Tobacco use Status Tobacco use date assessed 12/25/24 12/25/24 10:10 Patient Tobacco Use Status Current everyday Tobacco 12/25/24 10:10 Tobacco use type Cigarette 12/25/24 10:10 e-Cigarette/Vaping Use Never Used 12/25/24 10:10 PHQ-9: PHQ-9 Score PHQ-9: Total score 0 12/25/24 12:14 Depression Screening Interpretation: Negative Thrive Assessment: Date of Thrive Assessment Date Thrive assessed 12/25/24 12/25/24 10:10 Currently or been in a relationship where the following occur: No concerns reported Const General: no acute distress and alert HENMT Ears: TM's normal bilaterally and EAC's normal Throat: Yes posterior oropharynx normal and Yes tonsils normal (no TP congestion) Neck Other: (+) tenderness on palpation over the right lower neck / upper back, just above the superior margin of the right scapula Neck: Yes no lymphadenopathy Thyroid: Thyroid normal Resp Auscultation: clear to auscultation bilaterally, no rales and no wheezes Cardio Rate: regular rate Rhythm: regular rhythm Heart sounds: no murmurs GI Palpation (GI): Soft to palpation and nontender Auscultation: normal bowel sounds General: Yes no CVA tenderness Back/Spine/Pelvis Back: no CVA tenderness Cervical Spine: cervical muscular tenderness (over the right side just above the right scapula) Thoracic/Lumbar Spine: No lumbar spinal tenderness Skin Rashes: no rashes Extrem General: Yes no clubbing, cyanosis or edema Right upper extremity: Extremity exam: right hand Details: tenderness Left upper extremity: elbow/forearm Details: tenderness (mild) Location: of the olecranon and hand Details: tenderness Results Reviewed Results Reviewed: Laboratory Tests 08/11/24 12/22/24 12/22/24 09:26 10:10 10:11 WBC 6.1 Hgb 16.4 H Hct 48.1 H Plt Count 221 ESR 7 Sodium 140 Potassium 4.1 Creatinine 0.63 Estimated GFR > 60 Fasting Glucose 100 H Calcium 9.7 AST 19 ALT 13 Triglycerides 69 111 Cholesterol 226 H 352 H LDL Cholesterol, Calc 128 H 251 H HDL Cholesterol 85 79 25-OH Vitamin D Total 49.9 TSH 0.70 Free T4 1.62 Ur Specific [place] 1.020 Urine Protein Trace Urine Glucose (UA) Negative Urine Blood Negative Urine Nitrite Negative Ur Leukocyte Esterase Moderate (2+) H Coding Level of Care Code Est Pt Level 4 (05204) Diagnoses Pure hypercholesterolemia E78.00 Benign essential hypertension I10 Acquired hypothyroidism E03.9 Gastritis without bleeding, unspecified chronicity, unspecified gastritis type K29.70 Gastritis type: unspecified gastritis Chronicity: unspecified Gastritis bleeding: without bleeding Inflammatory polyarthropathy M06.4 Polycythemia D75.1 Age-related osteoporosis without current pathological fracture M81.0 Osteoporosis type: age-related Presence of current pathological fracture: without current pathological fracture Neck pain on right side M54.2 Vitamin D deficiency E55.9 Anxiety F41.9 Smoker F17.200 Additional Codes PHQ-9 - 84611 - PHQ-9 Billing: Yes ([id number]) Assessment & Plan Assessment & Plan (1) Pure hypercholesterolemia: Code(s): E78.00 - Pure hypercholesterolemia, unspecified Category: Medical Plan: Results of her labs done a few days ago reviewed and discussed with patient - her lipids have now increased significantly from previous Reinforced low cholesterol diet She used to take SQ injections of Repatha every 2 weeks with excellent results but we had to cut it back to once a month last year due to her insurance requiring her to put up a co-pay of $40 per Rx and she has indicated previously that she is not sure how long she can afford to keep this up as she is on a fixed income We tried to have her apply for patient assistance for her med but she has reportedly not heard back from the company regarding her application She has not responded effectively to Praluent injections 300 mg Q 4 weeks in the past and could not afford to stay on the Rx She could not tolerate both Rosuvastatin 60 mg QD and Atorvastatin 80 mg QD - had abdominal pain on BOTH medications and her LDL cholesterol never did get to goal even when she was on Rosuvastatin 40 mg QD for the past couple of years She also could not tolerate Ezetimibe due to side effects Will try referring her to cardiology to see if they have any other recommendations regarding patient's current situation Have advised patient that we can also consult with Dr. Hernandez to see if she has any suggestions that may be helpful for her Will recheck her labs and fasting lipids in 4 months for follow up (2) Benign essential hypertension: Code(s): I10 - Essential (primary) hypertension Category: Medical Plan: Reinforced low sodium diet - goal is systolic BP of at least 140 to 150 mm or less We suspect that she may have component of white coat syndrome or her blood pressure is partly anxiety-driven as her blood pressure is often high when checked here in the office but has been consistently much lower when she checks it at home Her BP today is actually good at 128/82 mm Continue Amlodipine 5 mg QD Patient is reminded to continue monitoring her blood pressure regularly (3) Acquired hypothyroidism: Code(s): E03.9 - Hypothyroidism, unspecified Category: Medical Plan: Her TFTs were normal on her recent labs Continue Levothyroxine 100 mcg QD Will recheck her TFTs in 4 months for follow up (4) Gastritis: Code(s): K29.70 - Gastritis, unspecified, without bleeding Category: Medical Qualifiers: Gastritis type: unspecified gastritis Chronicity: unspecified Gastritis bleeding: without bleeding Qualified Code(s): K29.70 - Gastritis, unspecified, without bleeding Plan: Resolved - suspect gastritis as the etiology of her previous abdominal pain Abdominal US done in 2022 came out unrevealing Reinforced dietary restrictions Continue Pantoprazole 40 mg QD PRN (5) Inflammatory polyarthropathy: Code(s): M06.4 - Inflammatory polyarthropathy Category: Medical Plan: States that her joint pains (especially over her hands and fingers) have improved a lot since she retired from work a couple of years ago She used to take Celebrex PRN but has not had to take it in a while now Follow up with rheumatology as scheduled (6) Polycythemia: Code(s): D75.1 - Secondary polycythemia Category: Medical Plan: This is most likely related to her smoking but will include a few additional tests with her next follow up labs for further evaluation (7) Osteoporosis: Code(s): M81.0 - Age-related osteoporosis without current pathological fracture Category: Medical Qualifiers: Osteoporosis type: age-related Presence of current pathological fracture: without current pathological fracture Qualified Code(s): M81.0 - Age- related osteoporosis without current pathological fracture Plan: Her initial BMD done last month (on 07/17/2024) revealed (+) osteoporosis based on the lowest T-score value of -4.4 in the lumbar spine Reinforced fall precautions Have reminded patient to make sure she is taking her Vitamin D and Calcium supplements daily She has been referred to and is now seeing Dr. Hernandez for endocrinology management of her osteoporosis and plan is to start patient on Even[facility] once her additional work ups are all completed (8) Neck pain on right side: Code(s): M54.2 - Cervicalgia Category: Medical Plan: She has been receiving trigger point injections from pain management, with (+) temporary relief of her neck pain Follow up with pain management as scheduled (9) Vitamin D deficiency: Code(s): E55.9 - Vitamin D deficiency, unspecified Category: Surgical Plan: Continue Vitamin D3 2000 units QD (10) Anxiety: Code(s): F41.9 - Anxiety disorder, unspecified Category: Medical Plan: She has Lorazepam 1 mg tablets that she used to take BID as needed but states that her anxiety has been well-controlled lately (until her daughter's recent issues) and she has not had to take her Lorazepam in a few months now (11) Smoker: Code(s): F17.200 - Nicotine dependence, unspecified, uncomplicated Category: Social Hx Plan: Patient is counseled again on smoking cessation Plan Follow up in 4 months Orders: Orders Comprehensive [place]. Panel Fast 4 Months E78.00 - Pure hypercholesterolemia, unspecified IRON PROFILE 4 Months D50.9 - Iron deficiency anemia, unspecified, D75.1 - Secondary polycythemia Complete Blood Count Auto Diff 4 Months D64.9 - Anemia, unspecified Lipid Panel 4 Months E78.00 - Pure hypercholesterolemia, unspecified Ferritin 4 Months D75.1 - Secondary polycythemia, E83.119 - Hemochromatosis, unspecified Transferrin 4 Months D75.1 - Secondary polycythemia JAK2 Mutation PCR 4 Months D75.1 - Secondary polycythemia Referrals Cardiology Referral E78.00 - Pure hypercholesterolemia, unspecified
== END 2024-12-25 10:56 | disposition home or self-care (01) ==
PROVIDERS: PCP Internal Medicine; Visit Provider Internal Medicine
DX: E78.00 Pure hypercholesterolemia, unspecified (principal); I10 Essential (primary) hypertension; E03.9 Hypothyroidism, unspecified; K29.70 Gastritis, unspecified, without bleeding; M06.4 Inflammatory polyarthropathy; D75.1 Secondary polycythemia; M81.0 Age-related osteoporosis without current pathological fracture; M54.2 Cervicalgia; E55.9 Vitamin D deficiency, unspecified; F41.9 Anxiety disorder, unspecified; F17.200 Nicotine dependence, unspecified, uncomplicated

== ENCOUNTER → 2024-12-25 10:04 | Outpatient (BNVA) | payer MEDICARE, SELFPAY | PROVIDERS: PCP Internal Medicine; Visit Provider Internal Medicine | DX: E78.00 Pure hypercholesterolemia, unspecified (principal); I10 Essential (primary) hypertension; E03.9 Hypothyroidism, unspecified; K29.70 Gastritis, unspecified, without bleeding; M06.4 Inflammatory polyarthropathy; D75.1 Secondary polycythemia; M81.0 Age-related osteoporosis without current pathological fracture; M54.2 Cervicalgia; E55.9 Vitamin D deficiency, unspecified; F41.9 Anxiety disorder, unspecified; F17.200 Nicotine dependence, unspecified, uncomplicated | CPT/HCPCS: 96127; 99212 ==

== ENCOUNTER 2024-12-31 10:51 | Outpatient (AMB) | payer MEDICARE, SELFPAY ==
[2024-12-31 11:08] VITALS: BP 126/90; PULSE 68; O2SAT 94; BMI 19.0
--- NOTE | 2024-12-31 11:08 | MHC.OFFVIS ---
Vital Signs 12/31/24 11:08 Height 5 ft 1 in Weight 100 lb 8.493 oz BMI 19.0 BP 126/90 H Blood Pressure Location Lt brachial Position Sitting Pulse 68 Pulse Source Pulse Oximeter Pulse Oximetry (%) 94 Oxygen Delivery Method Room Air Intake Visit Reasons: Osteoporosis Intake Note: Patient present today for Osteoporosis office visit. 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 Accompanied by: Self / Same As Patient Allergies aspirin Adverse Reaction (Intermediate, Verified 12/31/24 11:13) abdominal pain, nausea/vomiting, makes sick ezetimibe [Zetia] Adverse Reaction (Intermediate, Verified 12/31/24 11:13) abdominal pain Medication List - Last Reconciled 12/31/24 by Daniella Hernandez MD amlodipine 7.5 mg (1.5 x 5 mg) PO DAILY 90 days calcium carbonate (Calcium 600) 600 mg PO DAILY cholecalciferol (vitamin D3) 50 mcg PO DAILY 90 days hydroxyzine HCl 10 mg PO TID PRN 3 days levothyroxine 100 mcg PO QAM 90 days lorazepam Take 1 tablet 30 to 60 minutes before procedure as needed for anxiety. May repeat x 1 dose after 10 to 15 minutes if needed. 1 day pantoprazole 40 mg PO DAILY 90 days potassium chloride ER 20 mEq PO DAILY 90 days Repatha SureClick (evolocumab) 280 mg (2 mL) subcut Q4W 4 weeks NS HPI Comments Details: 74-year-old female coming in today for follow up of osteoporosis. HPI Diagnosed on bone density scan in July 2024, I reviewed the images myself lumbar spine T-score of-4.4, femoral neck T-score-3.9 and total femur T-score of -4. Diagnosed in July 2024 Fracture History: no fractures Height loss: 5 ' 2 was maximum height , now 5 1 Back pain: HAs shoulder and neck pain for march years Pharmacotherapeutic hx: None Drug holiday None Family history: None of osteoporosis and no parent fractured hip Estrogen use: no HRT. no OCPs Menstrual hx: Menarche: she doesnt remember age but says it was at normal age. Menopause: at 50 years 2 pregnancies, period used to be regular in the past. Secondary risk factors: Steroid use: None Hyperthyroidism: Neg, has hypothyroidism on levothyroxine Seizure medication use: None Chemo or Radiation use: Neg Heparin Use: Neg History of eating disorder: Negative detention immobilization: Negative History of kidney stones or disease: negative PI Use: Does take pantoprazole as needed , hasnt needed it for a year Chronic inflammatory lung disease: Negative Chronic inflammatory bowel disease: Negative Daily calcium intake:rarely any milk with oatmeal, no cheese, no yogurt. lots of vegetables. Vitamin D intake: 2000 units daily for at least 2 years Exercise:active with yard work Smoking history:a pack a day for 50 years Dental: has dentures , maybe 4 real teeth Interval history Secondary workup for osteoporosis was ordered last visit, not done. Vitamin-D: hasnt picked up prescription for 2000 units daily yet Calcium intake: Taking some more milk and cheese, and a supplement she couldnt confirm the dose Exercise: active around home Smoking: a pack a day No falls or fractures Physical exam General: sitting comfortably in no acute distress HEENT: normocephalic/atraumatic, , moist oral mucosa Neck: supple, symmetrical, , no dorsocervical or supraclavicular fat pads Cardiac: normal heart sounds Pulm: normal breath sounds B/L, no added breath sounds Abd: not distended, no tenderness Laboratory Tests 11/29/23 04/10/24 08/11/24 09:37 09:51 09:26 Potassium 3.2 L Creatinine 0.64 0.76 Estimated GFR > 60 > 60 Calcium 9.2 9.3 Albumin 4.1 4.1 25-OH Vitamin D Total 40.9 TSH 0.73 Free T4 1.50 BONE DENSITOMETRY 07/28 I reviewed the images myself, with mean T-score of the lumbar spine of-4.4. Lowest T-score at L3 of -4.6. CLINICAL INDICATION: Other cervical disc degeneration, unspecified cervical region. COMPARISON: This is the patient's baseline examination. TECHNIQUE: Using a [employer] DXA System (software version: 13.1) manufactured by [employer], dual-energy x-ray absorptiometry was performed of the lumbar spine and left hip. The images are of good technical quality. Summary results are attached. FINDINGS: LEFT FEMUR, NECK: BMD 0.494 g/cm2, Z-score -1.6, T-score -3.9, osteoporosis. LEFT FEMUR, TOTAL: BMD 0.502 g/cm2, Z-score -1.8, T-score -4.0, osteoporosis. AP SPINE L1-L4: BMD 0.647 g/cm2, Z-score -2.0, T-score -4.4, osteoporosis. IDENTIFIED RISK FACTORS: Menopause, low body weight, tobacco use (current smoker). HISTORY OF FRACTURE: None listed. MEDICATIONS: Vitamin D. MM/XR DEXA axial skeleton IMPRESSION: 1. DIAGNOSIS: Osteoporosis based on the lowest T-score value of -4.4 in the lumbar spine applying World Health Organization criteria. 2. 10-YEAR FRACTURE RISK PREDICTION, FRAX: According to the guidelines, FRAX calculation should only be performed on patients in the osteopenia bone density category. Therefore, FRAX was not performed on this patient. [facility] Medical History Right shoulder pain Glaucoma Smoker Anxiety Inflammatory polyarthropathy Benign essential hypertension Acquired hypothyroidism Pure hypercholesterolemia Surgical History Vitamin D deficiency No pertinent past surgical history Family History Father No problems noted. Mother No problems noted. Social History Housing: House Alcohol intake: current Alcohol intake frequency: does not drink Patient Tobacco Use Status: Current everyday Tobacco user Tobacco use type: Cigarette Cigarette Packs Per Day: 1 Cigarettes Per Day: 20 e-Cigarette/Vaping Use: Never Used Second Hand Smoke Exposure: Yes service: No Current occupational status: retired Current occupational exposures/hazards: No Cognitive needs: No Hearing needs: No Vision needs: Yes (reading glasses) Assessment & Plan Assessment & Plan (1) Osteoporosis: Code(s): M81.0 - Age-related osteoporosis without current pathological fracture Category: Medical Qualifiers: Osteoporosis type: age-related Presence of current pathological fracture: without current pathological fracture Qualified Code(s): M81.0 - Age-related osteoporosis without current pathological fracture Plan: Patient with new diagnosis of osteoporosis on bone density in July 2024 which showed severe osteoporosis with T-score of-4.4 at the lumbar spine and T-score of-3.9 at the femoral neck and -4 at the total femur. She is at very high-risk of fragility fractures. Her risk factors are age, being postmenopausal, active smoker, petite physique, intermittent PPI use, poor nutritional intake of calcium. I discussed conservative measures including adequate calcium intake, adequate vitamin D levels as well as the role of weightbearing exercises in general being good for bone health. She is not sure how much vitamin-D she is taking, I told her we had plan to start her on 2000 units daily and she has a prescription for it but she has not picked up the prescription yet. I told her to warp picker her prescription is stopped taking the other vitamin-D that she is taking. She is incorporating more calcium rich foods in her diet, however she can do a lot of fat rich foods because of her hypercholesterolemia. I told her to make of the rest in her supplement. She is not sure how much calcium she is taking in her supplement. I have asked her to bring all her medication bottles next time. In addition to conservative management with calcium and vitamin D; she absolutely would benefit from medications. Given severe osteoporosis with high-risk of fragility fracture she would be a better candidate for anabolic therapy in terms of reducing future fracture risk. Today we discussed options of Evenity, Tymlos, Forteo as well as anti resorptive therapy with Prolia and Reclast. She has never had a heart attack or stroke. I think she would be a great candidate for Evenity. I counseled regarding the mechanism of action, route of administration, common side effects Last visit I had ordered secondary workup. She has not done that yet. Prior to initiating therapy I would like her to complete work-up to get baseline bone turnover markers as well as rule out secondary causes of osteoporosis. I had spent quite a bit of time last visit explaining to her how to do the 24 hour urine collection and blood work, however she has a again forgotten this visit in we spent time going over it again for adequate collection. I will see her back in 4 weeks to discuss the results of her secondary workup and start medication. Plan: -continue vitamin-D 2000 units daily , warp picker prescription -calcium through diet and supplement to amount for 1000 mg daily, bring med bottles to next visit -weight-bearing exercises discussed -advised to stop smoking -reiterated importance of doing secondary workup with blood tests and 24 hour urine collection -follow up in 4 weeks to review results and plan for start medication (2) Hypertension: Code(s): I10 - Essential (primary) hypertension Category: Medical Qualifiers: Hypertension type: primary hypertension Qualified Code(s): I10 - Essential (primary) hypertension Plan: Patient also noted to have hypokalemia on chart review with a potassium level of 3.2. She is on 20 mEq of potassium daily. She is on amlodipine for hypertension. Her blood pressure has been in the 130-140 systolic and 90s diastolic. We will screen for primary hyperaldosteronism given hypokalemia. Plan: -last visit ordered ordered plasma aldosterone, renin activity, BMP Plan See above Patient Instructions: Stop smoking Continue Vitamin D 2000 units daily Start taking calcium in your diet plus supplement to amount for 1000 mg daily Bring all your med bottles to my next visit Calcium supplement options: caltrate or citracal or any calcium 600 mg daily Calcium rich foods are milk, yogurt , cheese. You can opt for 2% milk and yogurt and cottage cheese to avoid fats Spinach also has good calcium. Read up more options for calcium rich foods on https://www.osteoporosis.foundation/(International [employer]opor[employer] Website. You can read up more on osteoporosis on https://www.osteoporosis.foundation/ Do fasting blood work the same day when you hand in the urine Do 24 hr urine collection 24 hr urine collection instructions You have been asked to collect your urine for 24 hours to assess for calcium excretion. You must choose a 24 hour period of time when you will be home. The morning of the first day, DISCARD the FIRST morning void and then note the time. You will collect every single void from then on for 24 hours. For example, if you wake up at 6am and urinate, flush down that void. You will then collect every drop of urine all day and all night through 6am the following day. You will urinate one last time at 6am for the collection. The jug of urine must be kept in the refrigerator until you bring it to the lab. We will meet in 4 weeks to discuss your results At that time we will prescribe medication In the meantime read up on the medications Names: Girish Lizia Coding Level of Care Code Est Pt Level 3 (12758) Diagnoses Age-related osteoporosis without current pathological fracture M81.0 Osteoporosis type: age-related Presence of current pathological fracture: without current pathological fracture Primary hypertension I10 Hypertension type: primary hypertension
== END 2024-12-31 11:26 | disposition home or self-care (01) ==
PROVIDERS: PCP Internal Medicine; Visit Provider Student in an Organized Health Care Education/Training Program
DX: M81.0 Age-related osteoporosis without current pathological fracture (principal); I10 Essential (primary) hypertension
CPT/HCPCS: 99213

== ENCOUNTER 2024-12-31 11:39 | Outpatient (REF) | payer MEDICARE, SELFPAY ==
[2024-12-31 13:15] LABS: Appearance Urine Clear; Color Urine Yellow; Glucose Urine UA Negative (Negative); Leukocyte Esterase Urine Negative (Negative); Nitrite Urine Negative (Negative); Specific Gravity - Urine <= 1.005 (1.005-1.025); Urine Blood Negative (Negative); Urine Ketones Negative (Negative); Urine Protein Negative (Neg-Trace)
== END 2024-12-31 11:40 | disposition home or self-care (01) ==
LOC: HO.10HDLNP 11:39
PROVIDERS: Student in an Organized Health Care Education/Training Program; Visit Provider Internal Medicine
DX: R30.0 Dysuria (principal); M81.0 Age-related osteoporosis without current pathological fracture; I10 Essential (primary) hypertension; Z79.899 Other long term (current) drug therapy
CPT/HCPCS: 81003; 86335; 99212

== ENCOUNTER 2025-01-12 09:30 | Outpatient (REF) | payer MEDICARE, SELFPAY ==
[2025-01-12 11:48] LABS: Anion Gap 12 (12-20); Blood Urea Nitrogen 13 mg/dL (9-16); Calcium 9.6 mg/dL (8.4-10.2); Carbon Dioxide 28 mmol/L (22-29); Chloride 105 mmol/L (96-108); Estimated Glomerular Filt Rate > 60; Glucose Random 100 mg/dL (60-115); Magnesium 1.9 mg/dL (1.6-2.6); Phosphorus 3.8 mg/dL (2.7-4.5); Potassium 3.8 mmol/L (3.3-5.1); Sodium 141 mmol/L (135-145)
[2025-01-12 12:02] LABS: Parathyroid Hormone Intact 49.8 pg/mL (8.7-77.1)
[2025-01-12 15:37] LABS: Creatinine, mg/dL 29.18
[2025-01-12 20:16] LABS: Creatinine, 24Hr Urine 0.6 G/Day (1.0-2.0); Total Volume 24 Hour Urine 2100 mL
[2025-01-13 14:17] LABS: Prot Elec - Albumin 4.1 g/dL (3.8-4.8); Prot Elec - Alpha1 0.3 g/dL (0.2-0.3); Prot Elec - Alpha2 0.7 g/dL (0.5-0.9); Prot Elec - Beta 1 0.4 g/dL (0.4-0.6); Prot Elec - Beta 2 0.3 g/dL (0.2-0.5); Prot Elec - Gamma 0.5 g/dL (0.8-1.7); Prot Elec - Total Protein 6.2 g/dL (6.1-8.1)
[2025-01-13 21:38] LABS: Calcium, 24 Hr Urine 212 mg/24 h; Calcium/Creatinine Ratio 388 mg/g creat (30-275); Creatinine 24Hr Urine 0.55 g/24 h (0.50-2.15)
[2025-01-13 23:03] LABS: IgA 173 mg/dL (70-320); IgG 681 mg/dL (600-1540); IgM 79 mg/dL (50-300)
[2025-01-16 07:53] LABS: Collagen Type I C-Telopeptide 422 pg/mL (see note)
[2025-01-18 17:49] LABS: Cortisol Free, 24 Hr Urine 23.2 mcg/24 h (4.0-50.0); Creatinine, 24 Hr Urine 0.58 g/24 h (0.50-2.15); Total Volume, 24 Hr Urine 2100 mL
[2025-01-18 23:44] LABS: Renin 0.35 ng/mL/h (0.25-5.82)
[2025-01-21 06:02] LABS: Alkaline Phosphatase Bone 12.3 mcg/L (5.6-29.0)
== END 2025-01-12 09:31 | disposition home or self-care (01) ==
LOC: HO.LAB 09:30
PROVIDERS: PCP Internal Medicine; Visit Provider Student in an Organized Health Care Education/Training Program
DX: M81.0 Age-related osteoporosis without current pathological fracture (principal); I10 Essential (primary) hypertension
CPT/HCPCS: 36415; 80048; 82040; 82088; 82340; 82523; 82530; 82570; 82784; 83735; 83970; 84075; 84100; 84165; 84244; 86334

== ENCOUNTER 2025-01-28 11:19 | Outpatient (AMB) | payer MEDICARE, SELFPAY ==
[2025-01-28 11:21] VITALS: BP 180/94; PULSE 68; O2SAT 96; BMI 18.7
--- NOTE | 2025-01-28 11:21 | A.OFFVIS_ITS ---
Vital Signs 01/28/25 11:21 01/28/25 11:28 Height 5 ft 1 in Weight 99 lb 3.328 oz BMI 18.7 BP 180/94 H 186/102 H Blood Pressure Location Lt brachial Rt brachial Position Sitting Sitting Pulse 68 69 Pulse Source Pulse Oximeter Pulse Oximeter Pulse Oximetry (%) 96 97 Oxygen Delivery Method Room Air Room Air Intake Visit Reasons: osteoporosis Intake Note: Patient present today for Osteoporosis office visit. 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 HPI Diagnosed on bone density scan in July 2024, I reviewed the images myself lumbar spine T-score of-4.4, femoral neck T-score-3.9 and total femur T-score of -4. Diagnosed in July 2024 Fracture History: no fractures Height loss: 5 ' 2 was maximum height , now 5 1 Back pain: HAs shoulder and neck pain for march years Pharmacotherapeutic hx: None Drug holiday None Family history: None of osteoporosis and no parent fractured hip Estrogen use: no HRT. no OCPs Menstrual hx: Menarche: she doesnt remember age but says it was at normal age. Menopause: at 50 years 2 pregnancies, period used to be regular in the past. Secondary risk factors: Steroid use: None Hyperthyroidism: Neg, has hypothyroidism on levothyroxine Seizure medication use: None Chemo or Radiation use: Neg Heparin Use: Neg History of eating disorder: Negative retirement immobilization: Negative History of kidney stones or disease: negative PI Use: Does take pantoprazole as needed , hasnt needed it for a year Chronic inflammatory lung disease: Negative Chronic inflammatory bowel disease: Negative Daily calcium intake:rarely any milk with oatmeal, no cheese, no yogurt. lots of vegetables. Vitamin D intake: 2000 units daily for at least 2 years Exercise:active with yard work Smoking history:a pack a day for 50 years Dental: has dentures , maybe 4 real teeth Interval history 01/12/2025: Secondary workup for osteoporosis done which was mostly unremarkable except that the 24 hour urine collection showed hypercalciuria with a 24 hour urine calcium of 212 with a creatinine lower of 0.58, calcium creatinine ratio elevated of 388. Vitamin-D: Thinks she is on 2000 units daily , forgot to bring her medication bottles again Calcium intake: Taking some more milk and cheese, and a supplement she couldnt confirm the dose Exercise: active around home Smoking: a pack a day No falls or fractures Hypertension Currently on amlodipine 7.5 mg daily Has a history of hypokalemia, on potassium supplements 20 mEq daily No history of stroke or heart attack Blood work from 01/12/2025 showed aldosterone elevated at 13, plasma renin activity of 0.39, ratio of 33 Physical exam General: sitting comfortably in no acute distress HEENT: normocephalic/atraumatic, , moist oral mucosa Neck: supple, symmetrical, , no dorsocervical or supraclavicular fat pads Cardiac: normal heart sounds Pulm: normal breath sounds B/L, no added breath sounds Abd: not distended, no tenderness Laboratory Tests 11/29/23 04/10/24 08/11/24 09:37 09:51 09:26 Potassium 3.2 L Creatinine 0.64 0.76 Estimated GFR > 60 > 60 Calcium 9.2 9.3 Albumin 4.1 4.1 25-OH Vitamin D Total 40.9 TSH 0.73 Free T4 1.50 Laboratory Tests 11/29/23 04/10/24 08/11/24 09:37 09:51 09:26 Sodium Potassium 3.2 L Creatinine 0.64 0.76 Estimated GFR > 60 > 60 Calcium 9.2 9.3 Phosphorus Magnesium Alk Phos Bone Specific Albumin 4.1 4.1 Total Protein (PEP) Albumin (PEP) Pzupx-0-Irciprlwh Jvccw-3-Qppvnadax Wauy-4-Byychkuv Lpez-4-Vpaddgoj Gamma Globulins Collgn I C-Telopeptide Renin Aldosterone 25-OH Vitamin D Total 40.9 TSH 0.73 Free T4 1.50 PTH Intact Urine Total Volume Ur 24 Hour Volume Ur Creatinine mg/dL Ur Creatinine 24 Hour Ur Calcium 24 Hr Calcium/Creat 24 Hr Ur Free Cortisol 24 Hr 12/22/24 01/12/25 01/12/25 10:11 08:00 09:54 Sodium 140 141 Potassium 4.1 3.8 Creatinine 0.63 0.66 Estimated GFR > 60 > 60 Calcium 9.7 9.6 Phosphorus 3.8 Magnesium 1.9 Alk Phos Bone Specific 12.3 Albumin 4.3 4.0 Total Protein (PEP) 6.2 Albumin (PEP) 4.1 Apvth-7-Bvnrutbiu 0.3 Lartl-1-Ajqtattgc 0.7 Zeeu-2-Wiqdsqrr 0.4 Yvne-6-Ywpzcfvp 0.3 Gamma Globulins 0.5 L Collgn I C-Telopeptide 422 Renin 0.35 Aldosterone 13 25-OH Vitamin D Total 49.9 TSH 0.70 Free T4 1.62 PTH Intact 49.8 Urine Total Volume 2100 Ur 24 Hour Volume 2100 Ur Creatinine mg/dL 29.18 Ur Creatinine 24 Hour 0.58 Ur Calcium 24 Hr 212 Calcium/Creat 24 Hr 388 H Ur Free Cortisol 24 Hr 23.2 BONE DENSITOMETRY 07/28 I reviewed the images myself, with mean T-score of the lumbar spine of-4.4. Lowest T-score at L3 of -4.6. CLINICAL INDICATION: Other cervical disc degeneration, unspecified cervical region. COMPARISON: This is the patient's baseline examination. TECHNIQUE: Using a Octonot[employer] DXA System (software version: 13.1) manufactured by [employer], dual-energy x-ray absorptiometry was performed of the lumbar spine and left hip. The images are of good technical quality. Summary results are attached. FINDINGS: LEFT FEMUR, NECK: BMD 0.494 g/cm2, Z-score -1.6, T-score -3.9, osteoporosis. LEFT FEMUR, TOTAL: BMD 0.502 g/cm2, Z-score -1.8, T-score -4.0, osteoporosis. AP SPINE L1-L4: BMD 0.647 g/cm2, Z-score -2.0, T-score -4.4, osteoporosis. IDENTIFIED RISK FACTORS: Menopause, low body weight, tobacco use (current smoker). HISTORY OF FRACTURE: None listed. MEDICATIONS: Vitamin D. MM/XR DEXA axial skeleton IMPRESSION: 1. DIAGNOSIS: Osteoporosis based on the lowest T-score value of -4.4 in the lumbar spine applying World Health Organization criteria. 2. 10-YEAR FRACTURE RISK PREDICTION, FRAX: According to the guidelines, FRAX calculation should only be performed on patients in the osteopenia bone density category. Therefore, FRAX was not performed on this patient. [facility] Medical History (Updated 01/28/25 @ 12:42 by Daniella Hernandez MD) Primary aldosteronism Hypercalciuria Right shoulder pain Glaucoma Smoker Anxiety Inflammatory polyarthropathy Benign essential hypertension Acquired hypothyroidism Pure hypercholesterolemia Surgical History Vitamin D deficiency No pertinent past surgical history Family History Father No problems noted. Mother No problems noted. Social History Housing: House Alcohol intake: current Alcohol intake frequency: does not drink Patient Tobacco Use Status: Current everyday Tobacco user Tobacco use type: Cigarette Cigarette Packs Per Day: 1 Cigarettes Per Day: 20 e-Cigarette/Vaping Use: Never Used Second Hand Smoke Exposure: Yes service: No Current occupational status: retired Current occupational exposures/hazards: No Cognitive needs: No Hearing needs: No Vision needs: Yes (reading glasses) Physical Exam Vital Signs: Last Vital Signs Pulse 68 01/28/25 11:21 Pulse Ox 96 01/28/25 11:21 Oxygen Delivery Method Room Air 01/28/25 11:21 BMI result Body Mass Index 18.7 Assessment & Plan Assessment & Plan (1) Osteoporosis: Code(s): M81.0 - Age-related osteoporosis without current pathological fracture Category: Medical Qualifiers: Osteoporosis type: age-related Presence of current pathological fracture: without current pathological fracture Qualified Code(s): M81.0 - Age- related osteoporosis without current pathological fracture Plan: Patient with new diagnosis of osteoporosis on bone density in July 2024 which showed severe osteoporosis with T-score of-4.4 at the lumbar spine and T- score of-3.9 at the femoral neck and -4 at the total femur. She is at very high-risk of fragility fractures. Her risk factors are age, being postmenopausal, active smoker, petite physique, intermittent PPI use, poor nutritional intake of calcium. I discussed conservative measures including adequate calcium intake, adequate vitamin D levels as well as the role of weightbearing exercises in general being good for bone health. She is not sure how much vitamin-D she is taking, I told her we had plan to start her on 2000 units daily and she has a prescription for it but she is not sure how much she is taking, I have asked her to bring her medication bottles again. She is incorporating more calcium rich foods in her diet, however she can do a lot of fat rich foods because of her hypercholesterolemia. I told her to make of the rest in her supplement. She is not sure how much calcium she is taking in her supplement. I have asked her to bring all her medication bottles next time. In addition to conservative management with calcium and vitamin D; she absolutely would benefit from medications. Given severe osteoporosis with high- risk of fragility fracture she would be a better candidate for anabolic therapy in terms of reducing future fracture risk. She has never had a heart attack or stroke. I think she would be a great candidate for Evenity. I counseled regarding the mechanism of action, route of administration, common side effects Secondary workup from 01/12/2025 also showed hypercalciuria with a 24 hour urine calcium of 288, urine creatinine low at 0.58, calcium creatinine ratio elevated at 388. I will obtain a 24 hour urine sodium, she does feel that she has high salt intake which could be resulting in hypercalciuria. She would not be a good candidate for hydrochlorothiazide because she has a history of hypokalemia. Plus given her degree of osteoporosis, she has severe osteoporosis with high- risk of fragility fracture and she would benefit from initiation till like Evenity, just treating her for the hypercalciuria would not correct her osteoporosis. Plan: -start monthly Evenity injection -continue vitamin-D 2000 units daily -calcium through diet and supplement to amount for 1000 mg daily, bring med bottles to next visit -weight-bearing exercises discussed -advised to stop smoking -ordered 24 hour urine sodium levels (2) Hypertension: Code(s): I10 - Essential (primary) hypertension Category: Medical Qualifiers: Hypertension type: primary hypertension Qualified Code(s): I10 - Essential (primary) hypertension Plan: Blood pressure noted to be very high today in the 180 systolic and 90s diastolic. She has not taken her blood pressure medications for the past 2-3 days. Apparently she ran out of refills. I sent her refills for now. Patient also noted to have hypokalemia on chart review with a potassium level of 3.2. She is on 20 mEq of potassium daily. She is on amlodipine for hypertension. She screened positive for concerns of primary hyperaldosteronism suppressed plasma renin activity of 0.39, with a elevated aldosterone of 13, ratio of 33. These are labs from 01/12/2025. I would like to do a salt loading test but she feels she already has a very high salt intake plus her blood pressure is elevated, I am not sure if it would be safe to do this. For now I will just check a baseline 24 hour urine sodium in 24 hour aldosterone level. If her 24 hour urine sodium level is low, we will salt load her. We are checking a 24 hour urine sodium anyway for the hypercalciuria. I briefly discussed with her what is primary hyperaldosteronism and medical management versus surgery. She did tell me that she would not want any kind of surgery and would lean towards medical management. If her blood pressure remains elevated , I might just put her on spironolactone rather than trying to diagnose her. Plan: -do 24 hour urine sodium, 24 hour urine creatinine and 24 hour urine aldosterone as well as a BMP on the same day -follow up in 4 weeks to discuss results -continue amlodipine 7.5 mg daily -guided her that if she starts having nausea, headache, weakness, blurry vision, to go to the emergency room and importance of picking up her prescription on time and refills on time. (3) Hypercalciuria: Code(s): R82.994 - Hypercalciuria Category: Medical Plan: See above (4) Primary aldosteronism: Code(s): E26.09 - Other primary hyperaldosteronism Category: Medical Plan: See above Plan See above Orders: Orders Creatinine, 24 Hr Group Today I10 - Essential (primary) hypertension, R82.994 - Hypercalciuria Calcium, 24 Hr Ur Today I10 - Essential (primary) hypertension, R82.994 - Hypercalciuria Sodium, 24Hr Urine Group Today I10 - Essential (primary) hypertension, R82.994 - Hypercalciuria Aldosterone, 24Hr Urine Today I10 - Essential (primary) hypertension, R82.994 - Hypercalciuria Basic Metabolic Panel Today I10 - Essential (primary) hypertension, R82.994 - Hypercalciuria Medications: New romosozumab-aqqg (Evenity) given as two separate 105-mg injections administered immediately one after the other. 210 mg (2.34 mL) subcut .monthly 2.34 mL 11RF Refilled amlodipine 7.5 mg (1.5 x 5 mg) PO DAILY 90 days 135 tabs 1RF Patient Instructions: Stop smoking Continue Vitamin D 2000 units daily Start taking calcium in your diet plus supplement to amount for 1000 mg daily Bring all your med bottles to my next visit Calcium supplement options: caltrate or citracal or any calcium 600 mg daily Calcium rich foods are milk, yogurt , cheese. You can opt for 2% milk and yogurt and cottage cheese to avoid fats Spinach also has good calcium. Read up more options for calcium rich foods on https://www.osteoporosis.foundation/(International Osteoporosis Foundation Website. You can read up more on osteoporosis on https://www.osteoporosis.foundation/ Do blood work the same day when you hand in the urine Do 24 hr urine collection 24 hr urine collection instructions You have been asked to collect your urine for 24 hours to assess for calcium and sodium excretion. You must choose a 24 hour period of time when you will be home. The morning of the first day, DISCARD the FIRST morning void and then note the time. You will collect every single void from then on for 24 hours. For example, if you wake up at 6am and urinate, flush down that void. You will then collect every drop of urine all day and all night through 6am the following day. You will urinate one last time at 6am for the collection. The jug of urine must be kept in the refrigerator until you bring it to the lab. We will meet in 4 weeks to discuss your results start Evenity injection monthly for bones the nurse will call you to start these Coding Level of Care Code Est Pt Level 5 (31105) Complex EM visit Add On G2211 Diagnoses Age-related osteoporosis without current pathological fracture M81.0 Osteoporosis type: age-related Presence of current pathological fracture: without current pathological fracture Primary hypertension I10 Hypertension type: primary hypertension Hypercalciuria R82.994 Primary aldosteronism E26.09 Time Spent (min) 60
[2025-01-28 11:28] VITALS: BP 186/102; PULSE 69; O2SAT 97
== END 2025-01-28 12:08 | disposition home or self-care (01) ==
LOC: HO.ENCR 11:20
PROVIDERS: PCP Internal Medicine; Visit Provider Student in an Organized Health Care Education/Training Program
DX: E26.09 Other primary hyperaldosteronism (principal); M81.0 Age-related osteoporosis without current pathological fracture; I10 Essential (primary) hypertension; R82.994 Hypercalciuria
CPT/HCPCS: 99215; G2211

== ENCOUNTER → 2025-01-28 11:19 | Outpatient (BNVA) | payer MEDICARE, SELFPAY | PROVIDERS: PCP Internal Medicine; Visit Provider Student in an Organized Health Care Education/Training Program | DX: M81.0 Age-related osteoporosis without current pathological fracture (principal); I10 Essential (primary) hypertension; R82.994 Hypercalciuria; E26.09 Other primary hyperaldosteronism | CPT/HCPCS: 99212 ==

== ENCOUNTER 2025-02-04 09:22 | Outpatient (REF) | payer MEDICARE, SELFPAY ==
[2025-02-04 11:27] LABS: Anion Gap 12 (12-20); Blood Urea Nitrogen 15 mg/dL (9-16); Calcium 9.3 mg/dL (8.4-10.2); Carbon Dioxide 29 mmol/L (22-29); Chloride 103 mmol/L (96-108); Estimated Glomerular Filt Rate > 60; Glucose Random 99 mg/dL (60-115); Potassium 3.7 mmol/L (3.3-5.1); Sodium 140 mmol/L (135-145)
[2025-02-04 12:02] LABS: Creatinine, mg/dL 40.82
[2025-02-04 12:10] LABS: Creatinine, 24Hr Urine 0.7 G/Day (1.0-2.0); Sodium 24 Hr Urine 164.9 mmol/Day (40-220); Total Volume 24 Hour Urine 1700 mL
[2025-02-06 17:53] LABS: Calcium, 24 Hr Urine 270 mg/24 h; Calcium/Creatinine Ratio 361 mg/g creat (30-275); Creatinine 24Hr Urine 0.75 g/24 h (0.50-2.15)
[2025-02-18 03:59] LABS: Aldosterone, 24Hr Urine 1.9 mcg/24 h; Creatinine 24Hr Urine 0.72 g/24 h (0.50-2.15); Total Volume 1700 mL
== END 2025-02-04 09:23 | disposition home or self-care (01) ==
LOC: HO.LAB 09:22
PROVIDERS: PCP Internal Medicine; Visit Provider Student in an Organized Health Care Education/Training Program
DX: I10 Essential (primary) hypertension (principal); R82.994 Hypercalciuria
CPT/HCPCS: 36415; 80048; 82088; 82340; 84300

== ENCOUNTER 2025-03-22 09:52 | Outpatient (AMB) | payer MEDICAID, SELFPAY ==
--- NOTE | 2025-03-22 10:29 | AM.OFFVISNUR ---
Intake Visit Reasons: Evenity #1 Allergies aspirin Adverse Reaction (Intermediate, Verified 01/28/25 11:23) abdominal pain, nausea/vomiting, makes sick ezetimibe [Zetia] Adverse Reaction (Intermediate, Verified 01/28/25 11:23) abdominal pain Office Meds romosozumab-aqqg 210 mg/2.34 mL(105 mg/1.17 mL x2)subcutaneous syringe Performing Provider: Daniella Hernandez MD Performing Location: [facility] Administered by: Doris Yang RN on 03/22/25 10:29 Dose Route Admin Location Dispensed Lot Number Expiration Date NDC Final Touch Up Painter 210 mg subcut bilateral upper 2.34 mL [id number] 06/03/27 61758-781-24 [employer] Comments: Pt advised to continue taking calcium and Vit D supplementation throughout evenity injections. Patient advised to alert her dentist she is on this medication. Patient aware to watch for site reactions at injection site such as redness, warmth or swelling. Pt aware to call the office if any of these were to occur or other side effects such as headache or joint pain. Pt observed for 15 minutes following injection without any adverse reactions. Pt tolerated injection well. Appt made for 4 weeks for next injection. Pt had no further questions at this time. Assessment & Plan Assessment & Plan Orders: Orders AMB Romosozumab Injection Patient Supplied Today M81.0 - Age-related osteoporosis without current pathological fracture Medications: New romosozumab-aqqg 210 mg (2.34 mL) subcut ONCE 2.34 mL 0RF M81.0 - Age-related osteoporosis without current pathological fracture Coding
== END 2025-03-22 10:34 | disposition home or self-care (01) ==
LOC: HO.ENCR 09:53
PROVIDERS: PCP Internal Medicine; Visit Provider Student in an Organized Health Care Education/Training Program
DX: M81.0 Age-related osteoporosis without current pathological fracture (principal)

== ENCOUNTER → 2025-03-22 09:52 | Outpatient (BNVA) | payer MEDICAID, SELFPAY | PROVIDERS: PCP Internal Medicine; Visit Provider Student in an Organized Health Care Education/Training Program | DX: M81.0 Age-related osteoporosis without current pathological fracture (principal) | CPT/HCPCS: 96372; J3111 ==

== ENCOUNTER 2025-04-01 07:51 | Outpatient (AMB) | payer MEDICARE, SELFPAY ==
[2025-04-01 08:06] VITALS: BP 130/80; PULSE 71; O2SAT 98; BMI 18.9
--- NOTE | 2025-04-01 08:06 | MHC.OFFVIS ---
Vital Signs 04/01/25 08:06 Height 5 ft 1 in Weight 100 lb BMI 18.9 BP 130/80 Blood Pressure Location Rt brachial Position Sitting Pulse 71 Pulse Source Pulse Oximeter Pulse Oximetry (%) 98 Oxygen Delivery Method Room Air Intake Visit Reasons: Osteoporosis Intake Note: Patient present today for Osteoporosis office visit. 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 Accompanied by: Self / Same As Patient Allergies aspirin Adverse Reaction (Intermediate, Verified 04/01/25 08:09) abdominal pain, nausea/vomiting, makes sick ezetimibe [Zetia] Adverse Reaction (Intermediate, Verified 04/01/25 08:09) abdominal pain Medication List - Last Reconciled 04/01/25 by Daniella Hernandez MD amlodipine 7.5 mg (1.5 x 5 mg) PO DAILY 90 days calcium carbonate (Calcium 600) 600 mg PO DAILY cholecalciferol (vitamin D3) 50 mcg PO DAILY 90 days hydroxyzine HCl 10 mg PO TID PRN 3 days levothyroxine 100 mcg PO QAM 90 days lorazepam Take 1 tablet 30 to 60 minutes before procedure as needed for anxiety. May repeat x 1 dose after 10 to 15 minutes if needed. 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 HPI Diagnosed on bone density scan in July 2024, I reviewed the images myself lumbar spine T-score of-4.4, femoral neck T-score-3.9 and total femur T-score of -4. Diagnosed in July 2024 Fracture History: no fractures Height loss: 5 ' 2 was maximum height , now 5 1 Back pain: HAs shoulder and neck pain for may years Pharmacotherapeutic hx: None Drug holiday None Family history: None of osteoporosis and no parent fractured hip Estrogen use: no HRT. no OCPs Menstrual hx: Menarche: she doesnt remember age but says it was at normal age. Menopause: at 50 years 2 pregnancies, period used to be regular in the past. Secondary risk factors: Steroid use: None Hyperthyroidism: Neg, has hypothyroidism on levothyroxine Seizure medication use: None Chemo or Radiation use: Neg Heparin Use: Neg History of eating disorder: Negative group home immobilization: Negative History of kidney stones or disease: negative PI Use: Does take pantoprazole as needed , hasnt needed it for a year Chronic inflammatory lung disease: Negative Chronic inflammatory bowel disease: Negative Daily calcium intake:rarely any milk with oatmeal, no cheese, no yogurt. lots of vegetables. Vitamin D intake: 2000 units daily for at least 2 years Exercise:active with yard work Smoking history:a pack a day for 50 years Dental: has dentures , maybe 4 real teeth 01/12/2025: Secondary workup for osteoporosis done which was mostly unremarkable except that the 24 hour urine collection showed hypercalciuria with a 24 hour urine calcium of 212 with a creatinine lower of 0.58, calcium creatinine ratio elevated of 388. Given concerns for hypokalemia, she was not a good candidate for starting hydrochlorothiazide or chlorthalidone. Hence we decided to treat her osteoporosis with a Evenity. 24 hour urine sodium was not high. Interval history Treatment history : Evenity started 03/22/2025, 1st injection Vitamin-D: Thinks she is on 2000 units daily , forgot to bring her medication bottles again Calcium intake: Taking some more milk and cheese, and a supplement she couldnt confirm the dose Exercise: active around home Smoking: a pack a day No falls or fractures Hypertension Currently on amlodipine 7.5 mg daily Has a history of hypokalemia, on potassium supplements 20 mEq daily No history of stroke or heart attack Blood work from 01/12/2025 showed aldosterone elevated at 13, plasma renin activity of 0.39, ratio of 33 24 hour urine evaluation completed 01/12/2025 showed creatinine was low, 24 hour urine sodium was 164, she could benefit from a low-salt diet given sodium could have been on the higher side if creatinine was higher, however sodium was not high enough for us to adequately look at aldosterone levels in the urine, 24 hour urine aldosterone was 1.9 Physical exam General: sitting comfortably in no acute distress HEENT: normocephalic/atraumatic, , moist oral mucosa Neck: supple, symmetrical, , no dorsocervical or supraclavicular fat pads Cardiac: normal heart sounds Pulm: normal breath sounds B/L, no added breath sounds Abd: not distended, no tenderness Laboratory Tests 11/29/23 04/10/24 08/11/24 09:37 09:51 09:26 Potassium 3.2 L Creatinine 0.64 0.76 Estimated GFR > 60 > 60 Calcium 9.2 9.3 Albumin 4.1 4.1 25-OH Vitamin D Total 40.9 TSH 0.73 Free T4 1.50 Laboratory Tests 11/29/23 04/10/24 08/11/24 09:37 09:51 09:26 Sodium Potassium 3.2 L Creatinine 0.64 0.76 Estimated GFR > 60 > 60 Calcium 9.2 9.3 Phosphorus Magnesium Alk Phos Bone Specific Albumin 4.1 4.1 Total Protein (PEP) Albumin (PEP) Wzxlb-0-Mtnluljlc Ertpm-9-Opajinkss Rxyf-5-Zvrmswpy Unno-0-Uiotpfny Gamma Globulins Collgn I C-Telopeptide Renin Aldosterone 25-OH Vitamin D Total 40.9 TSH 0.73 Free T4 1.50 PTH Intact Urine Total Volume Ur 24 Hour Volume Ur Creatinine mg/dL Ur Creatinine 24 Hour Ur Calcium 24 Hr Calcium/Creat 24 Hr Ur Free Cortisol 24 Hr 12/22/24 01/12/25 01/12/25 10:11 08:00 09:54 Sodium 140 141 Potassium 4.1 3.8 Creatinine 0.63 0.66 Estimated GFR > 60 > 60 Calcium 9.7 9.6 Phosphorus 3.8 Magnesium 1.9 Alk Phos Bone Specific 12.3 Albumin 4.3 4.0 Total Protein (PEP) 6.2 Albumin (PEP) 4.1 Pqezm-9-Ueawdovic 0.3 Csygr-9-Hpmggzhvz 0.7 Llwh-3-Ltagzjpc 0.4 Wpzg-2-Ewzewkts 0.3 Gamma Globulins 0.5 L Collgn I C-Telopeptide 422 Renin 0.35 Aldosterone 13 25-OH Vitamin D Total 49.9 TSH 0.70 Free T4 1.62 PTH Intact 49.8 Urine Total Volume 2100 Ur 24 Hour Volume 2100 Ur Creatinine mg/dL 29.18 Ur Creatinine 24 Hour 0.58 Ur Calcium 24 Hr 212 Calcium/Creat 24 Hr 388 H Ur Free Cortisol 24 Hr 23.2 Laboratory Tests 02/04/25 02/04/25 08:00 09:50 Sodium 140 Potassium 3.7 Creatinine 0.60 Estimated GFR > 60 Ur Creatinine 24 Hour 0.7 L Ur Sodium 24 Hour 164.9 Ur Calcium 24 Hr 270 H Calcium/Creat 24 Hr 361 H Ur Total Volume 1700 Ur Aldosterone 24 Hr 1.9 Urine Creatinine 0.72 BONE DENSITOMETRY 07/28 I reviewed the images myself, with mean T-score of the lumbar spine of-4.4. Lowest T-score at L3 of -4.6. CLINICAL INDICATION: Other cervical disc degeneration, unspecified cervical region. COMPARISON: This is the patient's baseline examination. TECHNIQUE: Using a [employer] DXA System (software version: 13.1) manufactured by [employer], dual-energy x-ray absorptiometry was performed of the lumbar spine and left hip. The images are of good technical quality. Summary results are attached. FINDINGS: LEFT FEMUR, NECK: BMD 0.494 g/cm2, Z-score -1.6, T-score -3.9, osteoporosis. LEFT FEMUR, TOTAL: BMD 0.502 g/cm2, Z-score -1.8, T-score -4.0, osteoporosis. AP SPINE L1-L4: BMD 0.647 g/cm2, Z-score -2.0, T-score -4.4, osteoporosis. IDENTIFIED RISK FACTORS: Menopause, low body weight, tobacco use (current smoker). HISTORY OF FRACTURE: None listed. MEDICATIONS: Vitamin D. MM/XR DEXA axial skeleton IMPRESSION: 1. DIAGNOSIS: Osteoporosis based on the lowest T-score value of -4.4 in the lumbar spine applying World Health Organization criteria. 2. 10-YEAR FRACTURE RISK PREDICTION, FRAX: According to the guidelines, FRAX calculation should only be performed on patients in the osteopenia bone density category. Therefore, FRAX was not performed on this patient. [facility] Medical History (Updated 01/28/25 @ 12:42 by Daniella Hernandez MD) Primary aldosteronism Hypercalciuria Right shoulder pain Glaucoma Smoker Anxiety Inflammatory polyarthropathy Benign essential hypertension Acquired hypothyroidism Pure hypercholesterolemia Surgical History Vitamin D deficiency No pertinent past surgical history Family History Father No problems noted. Mother No problems noted. Social History Housing: House Alcohol intake: current Alcohol intake frequency: does not drink Patient Tobacco Use Status: Current everyday Tobacco user Tobacco use type: Cigarette Cigarette Packs Per Day: 1 Cigarettes Per Day: 20 e-Cigarette/Vaping Use: Never Used Second Hand Smoke Exposure: Yes service: No Current occupational status: retired Current occupational exposures/hazards: No Cognitive needs: No Hearing needs: No Vision needs: Yes (reading glasses) Physical Exam Vital Signs: Last Vital Signs Pulse 71 04/01/25 08:06 BP 130/80 04/01/25 08:06 Pulse Ox 98 04/01/25 08:06 Oxygen Delivery Method Room Air 04/01/25 08:06 BMI result Body Mass Index 18.9 Assessment & Plan Assessment & Plan (1) Osteoporosis: Code(s): M81.0 - Age-related osteoporosis without current pathological fracture Category: Medical Qualifiers: Osteoporosis type: age-related Presence of current pathological fracture: without current pathological fracture Qualified Code(s): M81.0 - Age-related osteoporosis without current pathological fracture Plan: Patient with new diagnosis of osteoporosis on bone density in July 2024 which showed severe osteoporosis with T-score of-4.4 at the lumbar spine and T-score of-3.9 at the femoral neck and -4 at the total femur. She is at very high-risk of fragility fractures. Her risk factors are age, being postmenopausal, active smoker, petite physique, intermittent PPI use, poor nutritional intake of calcium. I discussed conservative measures including adequate calcium intake, adequate vitamin D levels as well as the role of weightbearing exercises in general being good for bone health. She is not sure how much vitamin-D she is taking, I told her we had plan to start her on 2000 units daily and she has a prescription for it but she is not sure how much she is taking, I have asked her to bring her medication bottles again. She is incorporating more calcium rich foods in her diet, however she can do a lot of fat rich foods because of her hypercholesterolemia. I told her to make of the rest in her supplement. She is not sure how much calcium she is taking in her supplement. I have asked her to bring all her medication bottles next time. In addition to conservative management with calcium and vitamin D; she absolutely would benefit from medications. Given severe osteoporosis with high-risk of fragility fracture she would be a better candidate for anabolic therapy in terms of reducing future fracture risk. She has never had a heart attack or stroke. Secondary workup from 01/12/2025 also showed hypercalciuria with a 24 hour urine calcium of 288, urine creatinine low at 0.58, calcium creatinine ratio elevated at 388. 24 hour urine sodium was normal, hence not a high salt intake resulting in hypercalciuria. She would not be a good candidate for hydrochlorothiazide because she has a history of hypokalemia. Plus given her degree of osteoporosis, she has severe osteoporosis with high-risk of fragility fracture and she would benefit from initiation till like Evenity, just treating her for the hypercalciuria would not correct her osteoporosis. Started event injections 03/22/2025. Plan: -continue monthly Evenity injection -continue vitamin-D 2000 units daily -calcium through diet and supplement to amount for 1000 mg daily, bring med bottles to next visit -weight-bearing exercises discussed -advised to stop smoking -do labs prior to next visit (2) Hypertension: Code(s): I10 - Essential (primary) hypertension Category: Medical Qualifiers: Hypertension type: primary hypertension Qualified Code(s): I10 - Essential (primary) hypertension Plan: Patient also noted to have hypokalemia on chart review with a potassium level of 3.2. She is on 20 mEq of potassium daily. She is on amlodipine for hypertension. She screened positive for concerns of primary hyperaldosteronism suppressed plasma renin activity of 0.39, with a elevated aldosterone of 13, ratio of 33 from 01/12/2025. 24 hour urine sodium level was 164, however creatinine was on the lower side, sodium could have been higher if creatinine was normal, I advised her a low-salt diet. However this urine evaluation is not adequate for us to do confirmatory testing for aldosterone, 24 hour urine aldosterone was 1.9. At this point her blood pressure is well-controlled, however as I discussed with her previously she would not want any kind of surgery and would lean towards medical management if she does have primary hyperaldosteronism, hence if her blood pressure becomes uncontrolled, or hypokalemia or gets worse, would put her on spironolactone. While treatment of hyperaldosteronism is not just for controlling blood pressure, over time patient so the elevated aldosterone level also start having cardiovascular comorbidity and increased mortality. Plan: -if blood pressure becomes uncontrolled, we will consider starting her on spironolactone -continue amlodipine 7.5 mg daily -advised low-salt diet -follow up in 4 months (3) Hypercalciuria: Code(s): R82.994 - Hypercalciuria Category: Medical Plan: See above (4) Primary aldosteronism: Code(s): E26.09 - Other primary hyperaldosteronism Category: Medical Plan: See above Plan See above Orders: Orders Calcium 4 Months E26.09 - Other primary hyperaldosteronism, I10 - Essential (primary) hypertension, M81.0 - Age-related osteoporosis without current pathological fracture Albumin Level 4 Months E26.09 - Other primary hyperaldosteronism, I10 - Essential (primary) hypertension, M81.0 - Age-related osteoporosis without current pathological fracture Vitamin D 25-OH Total 4 Months M81.0 - Age-related osteoporosis without current pathological fracture Basic Metabolic Panel 4 Months E26.09 - Other primary hyperaldosteronism, I10 - Essential (primary) hypertension, M81.0 - Age-related osteoporosis without current pathological fracture Medications: Refilled cholecalciferol (vitamin D3) 50 mcg PO DAILY 90 days 90 caps 3RF E55.9 - Vitamin D deficiency, unspecified calcium carbonate (Calcium 600) 600 mg PO DAILY 30 tabs 6RF Patient Instructions: Continue Evenity injections monthly Do blood work a week before next visit in August , orders in place Follow a low salt diet Continue vitamin D supplements Coding Level of Care Code Est Pt Level 4 (61298) Diagnoses Age-related osteoporosis without current pathological fracture M81.0 Osteoporosis type: age-related Presence of current pathological fracture: without current pathological fracture Primary hypertension I10 Hypertension type: primary hypertension Hypercalciuria R82.994 Primary aldosteronism E26.09 Time Spent (min) 30
== END 2025-04-01 08:45 | disposition home or self-care (01) ==
LOC: HO.ENCR 07:52
PROVIDERS: PCP Internal Medicine; Visit Provider Student in an Organized Health Care Education/Training Program
DX: M81.0 Age-related osteoporosis without current pathological fracture (principal); I10 Essential (primary) hypertension; R82.994 Hypercalciuria; E26.09 Other primary hyperaldosteronism
CPT/HCPCS: 99214

== ENCOUNTER → 2025-04-01 07:51 | Outpatient (BNVA) | payer MEDICARE, SELFPAY | PROVIDERS: PCP Internal Medicine; Visit Provider Student in an Organized Health Care Education/Training Program | DX: M81.0 Age-related osteoporosis without current pathological fracture (principal); I10 Essential (primary) hypertension; R82.994 Hypercalciuria; E26.09 Other primary hyperaldosteronism; E55.9 Vitamin D deficiency, unspecified | CPT/HCPCS: 99212 ==

== ENCOUNTER 2025-04-19 09:55 | Outpatient (AMB) | payer MEDICAID, SELFPAY ==
--- NOTE | 2025-04-19 10:23 | AM.OFFVISNUR ---
Intake Visit Reasons: Evenity #2 Allergies aspirin Adverse Reaction (Intermediate, Verified 04/01/25 08:09) abdominal pain, nausea/vomiting, makes sick ezetimibe [Zetia] Adverse Reaction (Intermediate, Verified 04/01/25 08:09) abdominal pain Office Meds romosozumab-aqqg 210 mg/2.34 mL(105 mg/1.17 mL x2)subcutaneous syringe Performing Provider: Daniella Hernandez MD Performing Location: [facility] [place] Endocrinology Administered by: Padmini Heard RN on 04/19/25 10:23 Dose Route Admin Location Dispensed Lot Number Expiration Date [facility] M[employer] 210 mg subcut bilateral upper arms 2.34 mL [id number] 06/03/27 [id number] [facility] Comments: Patient tolerated this injection(s) well. Please see visit with Dr. Hernandez in regards to first injection. Patient aware to call our office with any further problems. Assessment & Plan Assessment & Plan Orders: Orders AMB Romosozumab Injection Patient Supplied Today M81.0 - Age-related osteoporosis without current pathological fracture Medications: New romosozumab-aqqg 210 mg (2.34 mL) subcut ONCE 2.34 mL 0RF M81.0 - Age-related osteoporosis without current pathological fracture Coding
== END 2025-04-19 10:22 | disposition home or self-care (01) ==
LOC: HO.ENCR 09:55
PROVIDERS: PCP Internal Medicine; Visit Provider Student in an Organized Health Care Education/Training Program
DX: M81.0 Age-related osteoporosis without current pathological fracture (principal)

== ENCOUNTER → 2025-04-19 09:55 | Outpatient (BNVA) | payer MEDICAID, SELFPAY | PROVIDERS: PCP Internal Medicine; Visit Provider Student in an Organized Health Care Education/Training Program | DX: M81.0 Age-related osteoporosis without current pathological fracture (principal) | CPT/HCPCS: 96372; J3111 ==

== ENCOUNTER 2025-05-03 07:23 | Outpatient (REF) | payer MEDICAID, SELFPAY ==
[2025-05-03 07:45] LABS: MANUAL DIFF FLAG NO
[2025-05-03 07:58] LABS: Basophils Percent Auto 0.4 % (0-2); Eosinophils Absolute Auto 0.2 X10*3/uL (0.0-0.4); Eosinophils Percent Auto 2.2 % (0-4); Hematocrit 44.7 % (37.0-47.0); Hemoglobin 15.1 g/dl (12.0-16.0); Imm Gran Abs Auto 0.01 X10*3/uL (0.00-0.03); Imm Gran Pct Auto 0.1 % (0.0-0.4); Lymphocytes Absolute Auto 1.8 X10*3/uL (1.2-4.9); Lymphocytes Percent Auto 24.8 % (20-40); Mean Corpuscular HGB Conc 33.8 g/dl (31.0-35.0); Mean Corpuscular Hemoglobin 31.9 pg (27.0-33.0); Mean Corpuscular Volume 94.5 fL (80.0-98.0); Mean Platelet Volume 9.8 fL (9.4-12.3); Monocytes Absolute Auto 0.4 X10*3/uL (0.1-1.2); Monocytes Percent Auto 5.9 % (2-11); Neutrophils Absolute Auto 4.8 x10*3/uL (2.0-8.3); Neutrophils Percent Auto 66.6 % (45-73); Platelet Count 195 X10*3/uL (160-400); Red Blood Count 4.73 X10*6/uL (4.20-5.50); Red Cell Distribution Width 13.3 % (11.0-16.0); White Blood Count 7.2 X10*3/uL (4.8-10.8)
[2025-05-03 08:38] LABS: Alanine Aminotransferase 9 U/L (0-31); Albumin Level 4.2 g/dL (3.5-5.0); Alkaline Phosphatase 107 U/L (39-117); Anion Gap 11 (12-20); Aspartate Amino Transferase 17 U/L (5-31); Bilirubin Total 0.5 mg/dL (0.0-1.0); Blood Urea Nitrogen 12 mg/dL (9-16); Calcium 8.5 mg/dL (8.4-10.2); Carbon Dioxide 26 mmol/L (22-29); Chloride 104 mmol/L (96-108); Cholesterol 381 mg/dL (<200); Estimated Glomerular Filt Rate > 60; Glucose Fasting 103 mg/dL (60-99); HDL Cholesterol 71 mg/dL (>40); Iron 95 mcg/dL (30-160); LDL Cholesterol Calculated 281 mg/dL (<100); Percent Iron Saturation 38 % (15-50); Potassium 3.7 mmol/L (3.3-5.1); Sodium 137 mmol/L (135-145); Total Iron Binding Capacity 250 mcg/dL (228-428); Total Protein 6.7 g/dL (6.5-8.0); Triglycerides 147 mg/dL (<150); Unsaturated Iron Binding 155 ug/dL
[2025-05-03 08:51] LABS: Ferritin 118 ng/mL (10-250)
[2025-05-04 10:38] LABS: Transferrin 232 mg/dL (188-341)
== END 2025-05-03 07:24 | disposition home or self-care (01) ==
LOC: HO.LAB 07:23
PROVIDERS: PCP Internal Medicine; Visit Provider Internal Medicine
DX: D75.1 Secondary polycythemia (principal); E83.119 Hemochromatosis, unspecified; E78.00 Pure hypercholesterolemia, unspecified; D64.9 Anemia, unspecified
CPT/HCPCS: 36415; 80053; 80061; 81270; 82728; 83540; 84466; 85025

== ENCOUNTER 2025-05-12 10:01 | Outpatient (AMB) | payer MEDICARE, MEDICAID, SELFPAY ==
[2025-05-12 10:05] VITALS: BP 150/70; PULSE 73; O2SAT 95; BMI 17.6
--- NOTE | 2025-05-12 10:05 | A.OFFPC_ITS ---
Vital Signs 05/12/25 10:05 05/12/25 10:54 Height 5 ft 1 in Weight 93 lb BMI 17.6 BP 150/70 H 150/86 H Blood Pressure Location Lt brachial Lt brachial Position Sitting Sitting Pulse 73 Pulse Source Pulse Oximeter Pulse Oximetry (%) 95 Oxygen Delivery Method Room Air Intake Visit Reasons: 4mt f/u Bonding Supervisor Required: No Accompanied by: Self / Same As Patient Allergies Ftlwwxr-YQN-GtG Reductase Inhibitor Adverse Reaction (Severe, Verified 05/12/25 11:09) abdominal pain, myalgia, fatigue aspirin Adverse Reaction (Intermediate, Verified 05/12/25 10:48) abdominal pain, nausea/vomiting, makes sick ezetimibe (Zetia) Adverse Reaction (Intermediate, Verified 05/12/25 10:48) abdominal pain alirocumab (From Praluent Pen) Adverse Reaction (Unknown, Verified 05/12/25 11:03) ineffective Medication List - Last Reconciled 05/12/25 by Jose Vivar MD amlodipine 7.5 mg (1.5 x 5 mg) PO DAILY 90 days calcium carbonate (Calcium 600) 600 mg PO DAILY cholecalciferol (vitamin D3) 50 mcg PO DAILY 90 days hydroxyzine HCl 10 mg PO TID PRN 3 days levothyroxine 100 mcg PO QAM 90 days lorazepam Take 1 tablet 30 to 60 minutes before procedure as needed for anxiety. May repeat x 1 dose after 10 to 15 minutes if needed. 1 day pantoprazole 40 mg PO DAILY 90 days potassium chloride ER 20 mEq PO DAILY 90 days romosozumab-aqqg (Evenity) 210 mg (2.34 mL) subcut .monthly Tobacco use date assessed: 05/12/25 Fall risk assessment: No Falls in past year Last assessed Fall Risk: 05/12/25 Dental Screening Dental Screen Date: 05/12/25 Did you have a dental visit in the last 12 months?: No Did you have a dental problem in the last 6 months where you did not have access to dental care?: No Was dental information given to patient?: No HPI 4mt f/u HPI Details Patient comes in today for her follow-up visit States that she feels okay She denies any headaches or dizziness Denies any chest pains, no increased shortness of breath No nausea/vomiting, no abdominal pain No change in bowel habits noted She had her follow-up labs done last week - to discuss her results She was started on Evenity injections by Dr. Hernandez a few weeks ago for her osteoporosis - states that she's had no issues so far with her medication [facility] Medical History Primary aldosteronism Hypercalciuria Right shoulder pain Glaucoma Smoker Anxiety Inflammatory polyarthropathy Benign essential hypertension Acquired hypothyroidism Pure hypercholesterolemia Surgical History Vitamin D deficiency No pertinent past surgical history Family History Father No problems noted. Mother No problems noted. Social History Housing: House Alcohol intake: current Alcohol intake frequency: does not drink Patient Tobacco Use Status: Current everyday Tobacco user Tobacco use type: Cigarette Cigarette Packs Per Day: 1 Cigarettes Per Day: 20 e-Cigarette/Vaping Use: Never Used Second Hand Smoke Exposure: Yes service: No Current occupational status: retired Current occupational exposures/hazards: No Cognitive needs: No Hearing needs: No Vision needs: Yes (reading glasses) Questionnaire PHQ-9 Over the last 2 weeks, how often have you been bothered by any of the following problems? 1. Little interest or pleasure in doing things: not at all 2. Feeling down, depressed, or hopeless: not at all 3. Trouble falling or staying asleep, or sleeping too much: not at all 4. Feeling tired or having little energy: not at all 5. Poor appetite or overeating: not at all 6. Feeling bad about yourself - or that you are a failure or have let yourself or your family down: not at all 7. Trouble concentrating on things, such as reading the newspaper or watching television: not at all 8. Moving or speaking so slowly that other people could have noticed. Or the opposite - being so fidgety or restless that you have been moving around a lot more than usual: not at all 9. Thoughts that you would be better off or of hurting yourself in some way: not at all Total score: 0 Depression Screening Interpretation: Negative Depression Screening Done: Yes 27722 - PHQ-9 Billing: Yes Source: Developed by Drs. Crow Peacock, Lina Warner, Hector Ace and colleagues, with an educational ross from [employer]. Thrive Questionnaire Date Thrive assessed: 05/12/25 I am a: Patient What is your living situation today?: I have a steady place to live Within the past 12 months, did the food you bought not last and you didn't have the money to get more?: Never true Within the past 12 months, did you worry whether your food would run out before you got money to buy more?: Never true Do you have trouble paying for medicines?: No Do you have trouble getting transportation to medical appointments?: No Do you have trouble paying your heating and electricity bill?: No Do you have trouble taking care of your child, family member or friend?: No Do you have trouble with day-to-day activities such as bathing, preparing meals, shopping, managing finances, etc.?: No Are you currently unemployed and looking for a job?: No Are you interested in more education?: No Please select the resources that you would like help with: None Currently or been in a relationship where the following occur: No concerns reported THRIVE Score: 0 AUDIT C Alcohol Use Questionnaire (AUDIT-C) 1. How often do you have a drink containing alcohol?: Never 3. How often do you have six or more drinks on one occasion?: Never Total Score: 0 Score Reviewed/Action Taken: Yes ANA-7 AMB Questionnaire ANA-7 Date ANA - 7 assessed: 05/12/25 Feeling nervous, anxious, or on edge: 0 = Not at all Not being able to stop or control worryin = Not at all Worrying too much about different things: 0 = Not at all Trouble relaxin = Not at all Being so restless that it is hard to sit still: 0 = Not at all Becoming easily annoyed or irritable: 0 = Not at all Feeling afraid as if something awful might happen: 0 = Not at all Total ANA-7 score (0-4 normal; 5-9 mild; 10-14 moderate; 15-21 severe): 0 Source: Developed by Lina Frias Kurt Kroenke and colleagues, with an educational ross from [employer]. Review of Systems Const Denies chills, Denies fatigue, Denies fever(s) and Denies headache(s) ENT Denies dysphagia, Denies dizziness, Denies otalgia, Denies headache(s), Reports neck pain (on and off on the right side, near the right upper back area), Denies odynophagia and Denies sore throat Card Denies chest pain, Denies palpitations and Denies dyspnea Resp Denies chest congestion, Denies cough and Denies dyspnea GI Denies abdominal pain, Denies constipation, Denies dysphagia, Denies heartburn, Denies diarrhea, Denies nausea, Denies odynophagia and Denies vomiting Denies difficulty voiding, Denies nocturia, Denies dysuria and Denies urinary urgency Musc Denies back pain, Reports arthralgias (on and off, mild, including over both hands), Denies joint swelling and Reports neck pain (on and off on the right side, near the right upper back area) Skin/Breast Denies rash Neuro Denies dizziness, Denies headache(s) and Reports tremor(s) (on and off in the hands lately) Psych Reports anxiety (on and off, causing blood pressure to go up) Endo Denies fatigue and Denies palpitations Physical exam (Primary Care) Vital Signs: Last Vital Signs Pulse 73 05/12/25 10:05 BP 150/70 H 05/12/25 10:05 Pulse Ox 95 05/12/25 10:05 Oxygen Delivery Method Room Air 05/12/25 10:05 BMI result Body Mass Index 17.6 Tobacco/Smoking Status: Tobacco use Status Tobacco use date assessed 05/12/25 05/12/25 10:11 Patient Tobacco Use Status Current everyday Tobacco 05/12/25 10:11 Tobacco use type Cigarette 05/12/25 10:11 e-Cigarette/Vaping Use Never Used 05/12/25 10:11 PHQ-9: PHQ-9 Score PHQ-9: Total score 0 05/12/25 10:11 Depression Screening Interpretation: Negative Thrive Assessment: Date of Thrive Assessment Date Thrive assessed 05/12/25 05/12/25 10:11 Currently or been in a relationship where the following occur: No concerns reported Const General: no acute distress and alert HENMT Ears: TM's normal bilaterally and EAC's normal Throat: Yes posterior oropharynx normal and Yes tonsils normal (no TP congestion) Neck Other: (+) mild tenderness on palpation over the right lower neck / upper back, just above the superior margin of the right scapula Neck: No lymphadenopathy Thyroid: Thyroid normal Resp Auscultation: clear to auscultation bilaterally, no rales and no wheezes Cardio Rate: regular rate Rhythm: regular rhythm Heart sounds: no murmurs GI Palpation (GI): Soft to palpation and nontender Auscultation: normal bowel sounds General: Yes no CVA tenderness Back/Spine/Pelvis Back: no CVA tenderness Cervical Spine: cervical muscular tenderness (over the right side just above the right scapula) Thoracic/Lumbar Spine: No lumbar spinal tenderness Skin Rashes: no rashes Extrem General: Yes no clubbing, cyanosis or edema Right upper extremity: Extremity exam: right hand Details: tenderness Left upper extremity: elbow/forearm Details: tenderness (mild) Location: of the olecranon and hand Details: tenderness Results Reviewed Results Reviewed: Laboratory Tests 05/03/25 07:44 WBC 7.2 Hgb 15.1 Hct 44.7 Plt Count 195 Sodium 137 Potassium 3.7 Creatinine 0.62 Estimated GFR > 60 Fasting Glucose 103 H Calcium 8.5 D Iron 95 TIBC 250 % Saturation 38 Ferritin 118 AST 17 ALT 9 Triglycerides 147 Cholesterol 381 H LDL Cholesterol, Calc 281 H HDL Cholesterol 71 Coding Level of Care Code Est Pt Level 4 (60299) Complex EM visit Add On G2211 Diagnoses Pure hypercholesterolemia E78.00 Benign essential hypertension I10 Acquired hypothyroidism E03.9 Gastritis without bleeding, unspecified chronicity, unspecified gastritis type K29.70 Gastritis type: unspecified gastritis Chronicity: unspecified Gastritis bleeding: without bleeding Inflammatory polyarthropathy M06.4 Polycythemia D75.1 Age-related osteoporosis without current pathological fracture M81.0 Osteoporosis type: age-related Presence of current pathological fracture: without current pathological fracture Neck pain on right side M54.2 Vitamin D deficiency E55.9 Anxiety F41.9 Smoker F17.200 Additional Codes PHQ-9 - 34757 - PHQ-9 Billing: Yes ([id number]) Assessment & Plan Assessment & Plan (1) Pure hypercholesterolemia: Code(s): E78.00 - Pure hypercholesterolemia, unspecified Category: Medical Plan: Results of her labs done last week reviewed and discussed with patient - her lipids have again increased from previous and her LDL cholesterol alone is now at 281 mg/dl Reinforced low cholesterol diet She used to take SQ injections of Repatha every 2 weeks with excellent results but we had to cut it back to once a month last year due to her insurance requiring her to put up a co-pay of $40 per Rx and she has indicated previously that she is not sure how long she can afford to keep this up as she is on a fixed income We tried to have her apply for patient assistance for her med but she has reportedly not heard back from the company regarding her application She has not responded effectively to Praluent injections 300 mg Q 4 weeks in the past and could not afford to stay on the Rx She could not tolerate both Rosuvastatin 60 mg QD and Atorvastatin 80 mg QD - had abdominal pain on BOTH medications and her LDL cholesterol never did get to goal even when she was on Rosuvastatin 40 mg QD for the past couple of years She also could not tolerate Ezetimibe due to side effects We tried referring her to cardiology to see if they have any other recommendations regarding patient's current situation but she has not been seen by them so far Have advised patient that she can also try to consult with Dr. Hernandez to see if she has any suggestions that may be helpful for her For now, will try to get her back on Repatha injections - Rx sent to pharmacy Will recheck her labs and fasting lipids in 4 months for follow up (2) Benign essential hypertension: Code(s): I10 - Essential (primary) hypertension Category: Medical Plan: Reinforced low sodium diet - goal is systolic BP of at least 140 to 150 mm or less We suspect that she may have component of white coat syndrome or her blood pressure is partly anxiety-driven as her blood pressure is often high when checked here in the office but has been consistently much lower when she checks it at home Her BP today is actually good at 128/82 mm Continue Amlodipine 5 mg QD for now Patient is reminded to continue monitoring her blood pressure regularly (3) Acquired hypothyroidism: Code(s): E03.9 - Hypothyroidism, unspecified Category: Medical Plan: Her TFTs were normal on her recent labs Continue Levothyroxine 100 mcg QD Will recheck her TFTs in 4 months for follow up (4) Gastritis: Code(s): K29.70 - Gastritis, unspecified, without bleeding Category: Medical Qualifiers: Gastritis type: unspecified gastritis Chronicity: unspecified Gastritis bleeding: without bleeding Qualified Code(s): K29.70 - Gastritis, unspecified, without bleeding Plan: Resolved - suspect gastritis as the etiology of her previous abdominal pain Abdominal US done in 2022 came out unrevealing Reinforced dietary restrictions Continue Pantoprazole 40 mg QD PRN (5) Inflammatory polyarthropathy: Code(s): M06.4 - Inflammatory polyarthropathy Category: Medical Plan: States that her joint pains (especially over her hands and fingers) have improved a lot since she retired from work a couple of years ago She used to take Celebrex PRN but has not had to take it in a while now Follow up with rheumatology as scheduled (6) Polycythemia: Code(s): D75.1 - Secondary polycythemia Category: Medical Plan: This is most likely related to her smoking All previous hematology work ups have come back normal (7) Osteoporosis: Code(s): M81.0 - Age-related osteoporosis without current pathological fracture Category: Medical Qualifiers: Osteoporosis type: age-related Presence of current pathological fracture: without current pathological fracture Qualified Code(s): M81.0 - Age- related osteoporosis without current pathological fracture Plan: Her initial BMD done on 07/17/2024 revealed (+) osteoporosis based on the lowest T-score value of -4.4 in the lumbar spine Reinforced fall precautions Have reminded patient again to make sure she is taking her Vitamin D and Calcium supplements daily She has been referred to and is now seeing Dr. Hernandez for endocrinology management of her osteoporosis She was started on Evenity injections 210 mg once a month in March 2025 - she appears to be tolerating the injections so far Follow up with endocrinology as scheduled (8) Neck pain on right side: Code(s): M54.2 - Cervicalgia Category: Medical Plan: She has been receiving trigger point injections from pain management, with (+) temporary relief of her neck pain Follow up with pain management as scheduled (9) Vitamin D deficiency: Code(s): E55.9 - Vitamin D deficiency, unspecified Category: Surgical Plan: Continue Vitamin D3 2000 units QD (10) Anxiety: Code(s): F41.9 - Anxiety disorder, unspecified Category: Medical Plan: She has Lorazepam 1 mg tablets that she used to take BID as needed but states that her anxiety has been well-controlled lately (until her daughter's recent issues) and she has not had to take her Lorazepam in a few months now (11) Smoker: Code(s): F17.200 - Nicotine dependence, unspecified, uncomplicated Category: Social Hx Plan: Patient is counseled again on complete smoking cessation Plan Follow up in 4 months Orders: Orders Comprehensive [place]. Panel Fast 4 Months E78.00 - Pure hypercholesterolemia, unspecified Vitamin D 25-OH Total 4 Months E55.9 - Vitamin D deficiency, unspecified Thyroid Stimulating Hormone 4 Months E03.9 - Hypothyroidism, unspecified UA CC w/rflx Micro + Cult 4 Months R30.0 - Dysuria Homocysteine 4 Months D75.1 - Secondary polycythemia, E78.00 - Pure hypercholesterolemia, unspecified Complete Blood Count Auto Diff 4 Months D64.9 - Anemia, unspecified Lipid Panel 4 Months E78.00 - Pure hypercholesterolemia, unspecified Free T4 (Free Thyroxine) 4 Months E03.9 - Hypothyroidism, unspecified Medications: Refilled Praluent Pen (alirocumab) 300 mg (2 mL) subcut Q4W 12 weeks 6 mL 3RF NS E78.00 - Pure hypercholesterolemia, unspecified Repatha SureClick (evolocumab) 280 mg (2 mL) subcut Q4W 2 mL 3RF 4 weeks NS
[2025-05-12 10:54] VITALS: BP 150/86
== END 2025-05-12 11:01 | disposition home or self-care (01) ==
LOC: HO.HMCH 10:01
PROVIDERS: PCP Internal Medicine; Visit Provider Internal Medicine
DX: E78.00 Pure hypercholesterolemia, unspecified (principal); M06.4 Inflammatory polyarthropathy; I10 Essential (primary) hypertension; E03.9 Hypothyroidism, unspecified; K29.70 Gastritis, unspecified, without bleeding; D75.1 Secondary polycythemia; M81.0 Age-related osteoporosis without current pathological fracture; M54.2 Cervicalgia; E55.9 Vitamin D deficiency, unspecified; F41.9 Anxiety disorder, unspecified; F17.200 Nicotine dependence, unspecified, uncomplicated

== ENCOUNTER → 2025-05-12 10:01 | Outpatient (BNVA) | payer MEDICARE, MEDICAID, SELFPAY | PROVIDERS: PCP Internal Medicine; Visit Provider Internal Medicine | DX: E78.00 Pure hypercholesterolemia, unspecified (principal); I10 Essential (primary) hypertension; E03.9 Hypothyroidism, unspecified; K29.70 Gastritis, unspecified, without bleeding; M06.4 Inflammatory polyarthropathy; D75.1 Secondary polycythemia; M81.0 Age-related osteoporosis without current pathological fracture; M54.2 Cervicalgia; E55.9 Vitamin D deficiency, unspecified; F41.9 Anxiety disorder, unspecified; F17.200 Nicotine dependence, unspecified, uncomplicated; Z71.6 Tobacco abuse counseling | CPT/HCPCS: 96127; 99212 ==

== ENCOUNTER 2025-05-24 10:34 | Outpatient (AMB) | payer MEDICARE, MEDICAID, SELFPAY ==
--- NOTE | 2025-05-24 10:52 | AM.OFFVISNUR ---
Intake Visit Reasons: Evenity #3 Allergies Bcookzi-AKU-PbM Reductase Inhibitor Adverse Reaction (Severe, Verified 05/12/25 11:09) abdominal pain, myalgia, fatigue aspirin Adverse Reaction (Intermediate, Verified 05/12/25 10:48) abdominal pain, nausea/vomiting, makes sick ezetimibe (Zetia) Adverse Reaction (Intermediate, Verified 05/12/25 10:48) abdominal pain alirocumab (From Praluent Pen) Adverse Reaction (Unknown, Verified 05/12/25 11:03) ineffective Office Meds romosozumab-aqqg 210 mg/2.34 mL(105 mg/1.17 mL x2)subcutaneous syringe Performing Provider: Daniella Hernandez MD Performing Location: [facility] [place] Endocrinology Administered by: Doris Yang RN on 05/24/25 10:52 Dose Route Admin Location Dispensed Lot Number Expiration Date NDC Forcer Maker 210 mg subcut bilateral upper arms 2.34 mL [id number] 08/03/27 65184-349-37 [employer] Total Dispensed Waste 2.34 mL 0 % Comments: Pt reported some muscle aches in her right arm from previous injection that went away after a few days, but no other adverse reactions reported. Pt tolerated injection well. Pt scheduled in 4 weeks for next appt. Assessment & Plan Assessment & Plan Orders: Orders AMB Romosozumab Injection Patient Supplied Today M81.0 - Age-related osteoporosis without current pathological fracture Coding
== END 2025-05-24 10:50 | disposition home or self-care (01) ==
LOC: HO.ENCR 10:35
PROVIDERS: PCP Internal Medicine; Visit Provider Student in an Organized Health Care Education/Training Program
DX: M81.0 Age-related osteoporosis without current pathological fracture (principal)

== ENCOUNTER → 2025-05-24 10:34 | Outpatient (BNVA) | payer MEDICARE, MEDICAID, SELFPAY | PROVIDERS: PCP Internal Medicine; Visit Provider Student in an Organized Health Care Education/Training Program | DX: M81.0 Age-related osteoporosis without current pathological fracture (principal) | CPT/HCPCS: 96372; J3111 ==

== ENCOUNTER 2025-06-21 09:59 | Outpatient (AMB) | payer MEDICARE, MEDICAID, SELFPAY ==
--- NOTE | 2025-06-21 10:16 | AM.OFFVISNUR ---
Intake Visit Reasons: Evenity #4 Allergies Yfnnxxw-PCS-VxE Reductase Inhibitor Adverse Reaction (Severe, Verified 05/12/25 11:09) abdominal pain, myalgia, fatigue aspirin Adverse Reaction (Intermediate, Verified 05/12/25 10:48) abdominal pain, nausea/vomiting, makes sick ezetimibe (Zetia) Adverse Reaction (Intermediate, Verified 05/12/25 10:48) abdominal pain alirocumab (From Praluent Pen) Adverse Reaction (Unknown, Verified 05/12/25 11:03) ineffective Office Meds romosozumab-aqqg 210 mg/2.34 mL(105 mg/1.17 mL x2)subcutaneous syringe Performing Provider: Daniella Hernandez MD Performing Location: [facility] [place] Endocrinology Administered by: Padmini Heard RN on 06/21/25 10:16 Dose Route Admin Location Dispensed Lot Number Expiration Date NDC Back Tufter 210 mg subcut bilateral upper ar 2.34 mL [id number] 09/03/27 76792-751-29 [employer] Total Dispensed Waste 2.34 mL 0 % Comments: Patient tolerated injection well. Patient denies any adverse reactions with previous injection. Pt scheduled for injection in x4 weeks. Assessment & Plan Assessment & Plan Orders: Orders AMB Romosozumab Injection Patient Supplied Today M81.0 - Age-related osteoporosis without current pathological fracture Coding
== END 2025-06-21 10:15 | disposition home or self-care (01) ==
LOC: HO.ENCR 10:00
PROVIDERS: PCP Internal Medicine; Visit Provider Student in an Organized Health Care Education/Training Program
DX: M81.0 Age-related osteoporosis without current pathological fracture (principal)

== ENCOUNTER → 2025-06-21 09:59 | Outpatient (BNVA) | payer MEDICARE, MEDICAID, SELFPAY | PROVIDERS: PCP Internal Medicine; Visit Provider Student in an Organized Health Care Education/Training Program | DX: M81.0 Age-related osteoporosis without current pathological fracture (principal) | CPT/HCPCS: 96372; J3111 ==

== ENCOUNTER 2025-07-19 09:47 | Outpatient (AMB) | payer MEDICARE, MEDICAID, SELFPAY ==
--- NOTE | 2025-07-19 10:20 | AM.OFFVISNUR ---
Intake Visit Reasons: Evenity #5 Allergies Jliregw-GOJ-VuZ Reductase Inhibitor Adverse Reaction (Severe, Verified 05/12/25 11:09) abdominal pain, myalgia, fatigue aspirin Adverse Reaction (Intermediate, Verified 05/12/25 10:48) abdominal pain, nausea/vomiting, makes sick ezetimibe (Zetia) Adverse Reaction (Intermediate, Verified 05/12/25 10:48) abdominal pain alirocumab (From Praluent Pen) Adverse Reaction (Unknown, Verified 05/12/25 11:03) ineffective Office Meds romosozumab-aqqg 210 mg/2.34 mL(105 mg/1.17 mL x2)subcutaneous syringe Performing Provider: Daniella Hernandez MD Performing Location: [facility] [place] Endocrinology Administered by: Doris Yang RN on 07/19/25 10:20 Dose Route Admin Location Dispensed Lot Number Expiration Date NDC Security Systems Engineer 210 mg subcut bilateral upper arms 2.34 mL [id number] 10/03/27 04176-135-86 [employer] Total Dispensed Waste 2.34 mL 0 % Comments: No adverse reactions reported from previous injection. Pt tolerated injection well. Pt scheduled in 4 weeks for next appt. No further questions at this time. Assessment & Plan Assessment & Plan Orders: Orders AMB Romosozumab Injection Patient Supplied Today M81.0 - Age-related osteoporosis without current pathological fracture Coding
== END 2025-07-19 10:17 | disposition home or self-care (01) ==
LOC: HO.ENCR 09:48
PROVIDERS: PCP Internal Medicine; Visit Provider Student in an Organized Health Care Education/Training Program
DX: M81.0 Age-related osteoporosis without current pathological fracture (principal)

== ENCOUNTER → 2025-07-19 09:47 | Outpatient (BNVA) | payer MEDICARE, MEDICAID, SELFPAY | PROVIDERS: PCP Internal Medicine; Visit Provider Student in an Organized Health Care Education/Training Program | DX: M81.0 Age-related osteoporosis without current pathological fracture (principal) | CPT/HCPCS: 96372; J3111 ==

== ENCOUNTER 2025-08-13 09:50 | Outpatient (REF) | payer MEDICARE, OTHER, SELFPAY ==
[2025-08-13 11:09] LABS: Albumin Level 4.5 g/dL (3.5-5.0); Anion Gap 11 (12-20); Blood Urea Nitrogen 11 mg/dL (9-16); Calcium 9.3 mg/dL (8.4-10.2); Carbon Dioxide 30 mmol/L (22-29); Chloride 101 mmol/L (96-108); Estimated Glomerular Filt Rate > 60; Potassium 4.0 mmol/L (3.3-5.1); Sodium 138 mmol/L (135-145)
== END 2025-08-13 09:51 | disposition home or self-care (01) ==
LOC: HO.LAB 09:50
PROVIDERS: PCP Internal Medicine; Visit Provider Student in an Organized Health Care Education/Training Program
DX: E26.09 Other primary hyperaldosteronism (principal); I10 Essential (primary) hypertension; M81.0 Age-related osteoporosis without current pathological fracture
CPT/HCPCS: 36415; 80048; 82040; 82306

== ENCOUNTER 2025-08-23 09:50 | Outpatient (AMB) | payer MEDICARE, MEDICAID, SELFPAY ==
--- NOTE | 2025-08-23 10:10 | AM.OFFVISNUR ---
Intake Visit Reasons: Evenity #6 Allergies Pollhex-XKI-FcY Reductase Inhibitor Adverse Reaction (Severe, Verified 05/12/25 11:09) abdominal pain, myalgia, fatigue aspirin Adverse Reaction (Intermediate, Verified 05/12/25 10:48) abdominal pain, nausea/vomiting, makes sick ezetimibe (Zetia) Adverse Reaction (Intermediate, Verified 05/12/25 10:48) abdominal pain alirocumab (From Praluent Pen) Adverse Reaction (Unknown, Verified 05/12/25 11:03) ineffective Office Meds romosozumab-aqqg 210 mg/2.34 mL(105 mg/1.17 mL x2)subcutaneous syringe Performing Provider: Daniella Hernandez MD Performing Location: [facility] [place] Endocrinology Administered by: Doris Yang RN on 08/23/25 10:11 Dose Route Admin Location Dispensed Lot Number Expiration Date NDC Public Speaking Coach 210 mg subcut bilateral upper arms 2.34 mL [id number] 03/03/27 53487-945-28 [employer] Total Dispensed Waste 2.34 mL 0 % Comments: No adverse reactions reported from previous injection. Pt tolerated injection well. Pt scheduled in 4 weeks for next appt. No further questions at this time. Assessment & Plan Assessment & Plan Orders: Orders AMB Romosozumab Injection Patient Supplied Today M81.0 - Age-related osteoporosis without current pathological fracture Coding
== END 2025-08-23 10:10 | disposition home or self-care (01) ==
LOC: HO.ENCR 09:50
PROVIDERS: PCP Internal Medicine; Visit Provider Student in an Organized Health Care Education/Training Program
DX: M81.0 Age-related osteoporosis without current pathological fracture (principal)

== ENCOUNTER → 2025-08-23 09:50 | Outpatient (BNVA) | payer MEDICARE, OTHER, SELFPAY | PROVIDERS: PCP Internal Medicine; Visit Provider Student in an Organized Health Care Education/Training Program | DX: M81.0 Age-related osteoporosis without current pathological fracture (principal) | CPT/HCPCS: 96372; J3111 ==

== ENCOUNTER 2025-09-13 09:59 | Outpatient (REF) | payer MEDICARE, MEDICAID, SELFPAY ==
[2025-09-13 10:18] LABS: MANUAL DIFF FLAG NO
[2025-09-13 10:53] LABS: Hematocrit 46.2 % (37.0-47.0); Hemoglobin 15.2 g/dl (12.0-16.0); Imm Gran Abs Auto 0.01 X10*3/uL (0.00-0.03); Imm Gran Pct Auto 0.1 % (0.0-0.4); Lymphocytes Absolute Auto 2.5 X10*3/uL (1.2-4.9); Mean Corpuscular HGB Conc 32.9 g/dl (31.0-35.0); Mean Corpuscular Hemoglobin 31.1 pg (27.0-33.0); Mean Corpuscular Volume 94.5 fL (80.0-98.0); NRBC Abs Auto 0.000 X10*3/uL (0.0-0.012); NRBC Pct Auto 0.0 /100WBC (0.0-0.2); Platelet Count 238 X10*3/uL (160-400); Red Blood Count 4.89 X10*6/uL (4.20-5.50); White Blood Count 6.7 X10*3/uL (4.8-10.8)
[2025-09-13 10:55] LABS: Appearance Urine Clear; Glucose Urine UA Negative (Negative); PH 7.0 (5.0-9.0); Specific Gravity - Urine 1.015 (1.005-1.025)
[2025-09-13 11:47] LABS: Alanine Aminotransferase 10 U/L (0-31); Albumin Level 4.2 g/dL (3.5-5.0); Alkaline Phosphatase 85 U/L (39-117); Anion Gap 12 (12-20); Aspartate Amino Transferase 17 U/L (5-31); Blood Urea Nitrogen 15 mg/dL (9-16); Calcium 9.4 mg/dL (8.4-10.2); Carbon Dioxide 28 mmol/L (22-29); Chloride 103 mmol/L (96-108); Cholesterol 365 mg/dL (<200); Estimated Glomerular Filt Rate > 60; HDL Cholesterol 76 mg/dL (>40); Potassium 3.6 mmol/L (3.3-5.1); Sodium 139 mmol/L (135-145); Total Protein 6.8 g/dL (6.5-8.0); Triglycerides 131 mg/dL (<150)
[2025-09-13 12:22] LABS: Free T4 (Free Thyroxine) 1.50 ng/dL (0.71-1.85); Thyroid Stimulating Hormone 0.48 uIU/mL (0.32-4.0)
== END 2025-09-13 10:00 | disposition home or self-care (01) ==
LOC: HO.LAB 09:59
PROVIDERS: PCP Internal Medicine; Visit Provider Internal Medicine
DX: R30.0 Dysuria (principal); D75.1 Secondary polycythemia; E78.00 Pure hypercholesterolemia, unspecified; D64.9 Anemia, unspecified; E55.9 Vitamin D deficiency, unspecified; E03.9 Hypothyroidism, unspecified
CPT/HCPCS: 36415; 80053; 80061; 81003; 82306; 83090; 84439; 84443; 85025

== ENCOUNTER 2025-09-20 10:38 | Outpatient (AMB) | payer MEDICARE, MEDICAID, SELFPAY ==
[2025-09-20 10:48] VITALS: BP 132/100; PULSE 73; O2SAT 96; BMI 18.6
--- NOTE | 2025-09-20 10:48 | MHC.PC.OV ---
Vital Signs 09/20/25 10:48 Height 5 ft 1 in Weight 98 lb 8 oz BMI 18.6 BP 132/100 H Blood Pressure Location Lt brachial Position Sitting Pulse 73 Pulse Source Pulse Oximeter Pulse Oximetry (%) 96 Oxygen Delivery Method Room Air Intake Visit Reasons: f/u DMII/ HLD Head Sawyer Automatic Required: No Accompanied by: Self / Same As Patient Allergies Phxhxqo-ANM-QpQ Reductase Inhibitor Adverse Reaction (Severe, Verified 09/20/25 11:04) abdominal pain, myalgia, fatigue aspirin Adverse Reaction (Intermediate, Verified 09/20/25 11:04) abdominal pain, nausea/vomiting, makes sick ezetimibe (Zetia) Adverse Reaction (Intermediate, Verified 09/20/25 11:04) abdominal pain alirocumab (From Praluent Pen) Adverse Reaction (Unknown, Verified 09/20/25 11:04) ineffective Medication List - Last Reconciled 09/20/25 by Jose Vivar MD amlodipine 7.5 mg (1.5 x 5 mg) PO DAILY calcium carbonate (Calcium 600) 600 mg PO DAILY cholecalciferol (vitamin D3) 50 mcg PO DAILY 90 days hydroxyzine HCl 10 mg PO TID PRN 3 days levothyroxine 100 mcg PO QAM 90 days lorazepam Take 1 tablet 30 to 60 minutes before procedure as needed for anxiety. May repeat x 1 dose after 10 to 15 minutes if needed. 1 day pantoprazole 40 mg PO DAILY 90 days potassium chloride ER 20 mEq PO DAILY 90 days Repatha SureClick (evolocumab) 280 mg (2 mL) subcut Q4W 4 weeks NS romosozumab-aqqg (Evenity) 210 mg (2.34 mL) subcut .monthly Tobacco use date assessed: 09/20/25 Fall risk assessment: No Falls in past year Last assessed Fall Risk: 09/20/25 Dental Screening Dental Screen Date: 09/20/25 Did you have a dental visit in the last 12 months?: No Did you have a dental problem in the last 6 months where you did not have access to dental care?: No Was dental information given to patient?: No HPI f/u DMII/ HLD HPI Details Patient comes in today for her follow-up visit States that she feels okay She denies any headaches or dizziness Denies any chest pains, no increased shortness of breath No nausea/vomiting, no abdominal pain No change in bowel habits noted Needs a couple of her Rx refilled States that she is scheduled for her next dose of Evenity tomorrow She had her follow-up labs done last week - to discuss her results [facility] Medical History Primary aldosteronism Hypercalciuria Right shoulder pain Glaucoma Smoker Anxiety Inflammatory polyarthropathy Benign essential hypertension Acquired hypothyroidism Pure hypercholesterolemia Surgical History Vitamin D deficiency No pertinent past surgical history Family History Father No problems noted. Mother No problems noted. Social History Housing: House Alcohol intake: current Alcohol intake frequency: does not drink Patient Tobacco Use Status: Current everyday Tobacco user Tobacco use type: Cigarette Cigarette Packs Per Day: 1 Cigarettes Per Day: 20 e-Cigarette/Vaping Use: Never Used Second Hand Smoke Exposure: Yes service: No Current occupational status: retired Current occupational exposures/hazards: No Cognitive needs: No Hearing needs: No Vision needs: Yes (reading glasses) Questionnaire PHQ-9 Over the last 2 weeks, how often have you been bothered by any of the following problems? 1. Little interest or pleasure in doing things: not at all 2. Feeling down, depressed, or hopeless: not at all 3. Trouble falling or staying asleep, or sleeping too much: not at all 4. Feeling tired or having little energy: not at all 5. Poor appetite or overeating: not at all 6. Feeling bad about yourself - or that you are a failure or have let yourself or your family down: not at all 7. Trouble concentrating on things, such as reading the newspaper or watching television: not at all 8. Moving or speaking so slowly that other people could have noticed. Or the opposite - being so fidgety or restless that you have been moving around a lot more than usual: not at all 9. Thoughts that you would be better off or of hurting yourself in some way: not at all Total score: 0 Depression Screening Interpretation: Negative Depression Screening Done: Yes 87953 - PHQ-9 Billing: Yes Source: Developed by Drs. Crow Peacock, Lina Warner, Hector Ace and colleagues, with an educational ross from [employer]. Thrive Questionnaire Date Thrive assessed: 09/20/25 I am a: Patient What is your living situation today?: I have a steady place to live Within the past 12 months, did the food you bought not last and you didn't have the money to get more?: Never true Within the past 12 months, did you worry whether your food would run out before you got money to buy more?: Never true Do you have trouble paying for medicines?: No Do you have trouble getting transportation to medical appointments?: No Do you have trouble paying your heating and electricity bill?: No Do you have trouble taking care of your child, family member or friend?: No Do you have trouble with day-to-day activities such as bathing, preparing meals, shopping, managing finances, etc.?: No Are you currently unemployed and looking for a job?: No Are you interested in more education?: No Please select the resources that you would like help with: None Currently or been in a relationship where the following occur: No concerns reported THRIVE Score: 0 AUDIT C Alcohol Use Questionnaire (AUDIT-C) 1. How often do you have a drink containing alcohol?: Never 3. How often do you have six or more drinks on one occasion?: Never Total Score: 0 Score Reviewed/Action Taken: Yes ANA-7 AMB Questionnaire ANA-7 Date ANA - 7 assessed: 09/20/25 Feeling nervous, anxious, or on edge: 0 = Not at all Not being able to stop or control worryin = Not at all Worrying too much about different things: 0 = Not at all Trouble relaxin = Not at all Being so restless that it is hard to sit still: 0 = Not at all Becoming easily annoyed or irritable: 0 = Not at all Feeling afraid as if something awful might happen: 0 = Not at all Total ANA-7 score (0-4 normal; 5-9 mild; 10-14 moderate; 15-21 severe): 0 Source: Developed by Lina Frias, Hector Ace and colleagues, with an educational ross from [employer]. Review of Systems Const Denies chills, Denies fatigue, Denies fever(s) and Denies headache(s) ENT Denies dysphagia, Denies dizziness, Denies otalgia, Denies headache(s), Reports neck pain (on and off on the right side, near the right upper back area), Denies odynophagia and Denies sore throat Card Denies chest pain, Denies palpitations and Denies dyspnea Resp Denies chest congestion, Denies cough and Denies dyspnea GI Denies abdominal pain, Denies constipation, Denies dysphagia, Denies heartburn, Denies diarrhea, Denies nausea, Denies odynophagia and Denies vomiting Denies difficulty voiding, Denies nocturia, Denies dysuria and Denies urinary urgency Musc Denies back pain, Reports arthralgias (on and off, mild, including over both hands), Denies joint swelling and Reports neck pain (on and off on the right side, near the right upper back area) Skin/Breast Denies rash Neuro Denies dizziness, Denies headache(s) and Reports tremor(s) (on and off in the hands lately) Psych Reports anxiety (on and off) Endo Denies fatigue and Denies palpitations Physical exam (Primary Care) Vital Signs: Last Vital Signs Pulse 73 09/20/25 10:48 BP 132/100 H 09/20/25 10:48 Pulse Ox 96 09/20/25 10:48 Oxygen Delivery Method Room Air 09/20/25 10:48 BMI result Body Mass Index 18.6 Tobacco/Smoking Status: Tobacco use Status Tobacco use date assessed 09/20/25 09/20/25 10:56 Patient Tobacco Use Status Current everyday Tobacco 09/20/25 10:56 Tobacco use type Cigarette 09/20/25 10:56 e-Cigarette/Vaping Use Never Used 09/20/25 10:56 PHQ-9: PHQ-9 Score PHQ-9: Total score 0 09/20/25 10:56 Depression Screening Interpretation: Negative Thrive Assessment: Date of Thrive Assessment Date Thrive assessed 09/20/25 09/20/25 10:56 Currently or been in a relationship where the following occur: No concerns reported Const General: no acute distress and alert HENMT Ears: TM's normal bilaterally and EAC's normal Throat: Yes posterior oropharynx normal and Yes tonsils normal (no TP congestion) Neck Other: (+) mild tenderness on palpation over the right lower neck / upper back, just above the superior margin of the right scapula Neck: No lymphadenopathy Thyroid: Thyroid normal Resp Auscultation: clear to auscultation bilaterally, no rales and no wheezes Cardio Rate: regular rate Rhythm: regular rhythm Heart sounds: no murmurs GI Palpation (GI): Soft to palpation and nontender Auscultation: normal bowel sounds General: Yes no CVA tenderness Back/Spine/Pelvis Back: no CVA tenderness Cervical Spine: cervical muscular tenderness (over the right side just above the right scapula) Thoracic/Lumbar Spine: No lumbar spinal tenderness Skin Rashes: no rashes Extrem General: Yes no clubbing, cyanosis or edema Right upper extremity: Extremity exam: right hand Details: tenderness Left upper extremity: elbow/forearm Details: tenderness (mild) Location: of the olecranon and hand Details: tenderness Results Reviewed Results Reviewed: Laboratory Tests 09/13/25 09/13/25 10:10 10:16 WBC 6.7 Hgb 15.2 Hct 46.2 Plt Count 238 Sodium 139 Potassium 3.6 Creatinine 0.65 Estimated GFR > 60 Fasting Glucose 100 H Calcium 9.4 AST 17 ALT 10 Triglycerides 131 Cholesterol 365 H LDL Cholesterol, Calc 263 H HDL Cholesterol 76 25-OH Vitamin D Total 58.1 Homocysteine 14.7 H TSH 0.48 Free T4 1.50 Ur Specific [place] 1.015 Urine Protein Negative Urine Glucose (UA) Negative Urine Blood Negative Urine Nitrite Negative Ur Leukocyte Esterase Negative Coding Level of Care Code Est Pt Level 4 (22729) Diagnoses Pure hypercholesterolemia E78.00 Benign essential hypertension I10 Acquired hypothyroidism E03.9 Gastritis without bleeding, unspecified chronicity, unspecified gastritis type K29.70 Gastritis type: unspecified gastritis Chronicity: unspecified Gastritis bleeding: without bleeding Inflammatory polyarthropathy M06.4 Polycythemia D75.1 Age-related osteoporosis without current pathological fracture M81.0 Osteoporosis type: age-related Presence of current pathological fracture: without current pathological fracture Neck pain on right side M54.2 Vitamin D deficiency E55.9 Anxiety F41.9 Smoker F17.200 Additional Codes PHQ-9 - 35712 - PHQ-9 Billing: Yes ([id number]) Assessment & Plan Assessment & Plan (1) Pure hypercholesterolemia: Code(s): E78.00 - Pure hypercholesterolemia, unspecified Category: Medical Plan: Results of her labs done last week reviewed and discussed with patient - her lipids have improved only slightly from previous, with her LDL cholesterol now at 263 mg/dl (from 281 mg/dl previously) Reinforced low cholesterol diet She used to take SQ injections of Repatha every 2 weeks with excellent results but we had to cut it back to once a month last year due to her insurance requiring her to put up a co-pay of $40 per Rx and she has indicated previously that she is not sure how long she can afford to keep this up as she is on a fixed income We tried to have her apply for patient assistance for her med but she reportedly did not qualify She has not responded effectively to Praluent injections 300 mg Q 4 weeks in the past and could not afford to stay on the Rx She could not tolerate both Rosuvastatin 60 mg QD and Atorvastatin 80 mg QD - had abdominal pain on BOTH medications and her LDL cholesterol never did get to goal even when she was on Rosuvastatin 40 mg QD for the past couple of years She also could not tolerate Ezetimibe due to side effects We tried referring her to cardiology to see if they have any other recommendations regarding patient's current situation but she has not been seen by them so far - she apparently declined to schedule an appointment when they reached out to her sometime in March 2025 as she states that they did not explain to her why they were calling her Have advised patient that I will make out a referral again to cardiology and explained to her clearly why I want them to see her - to see if they have any other recommendations to help her get back on track with her Repatha injections every 2 weeks instead of just once a month, which obviously is not really helping much Will recheck her labs and fasting lipids in 4 months for follow up (2) Benign essential hypertension: Code(s): I10 - Essential (primary) hypertension Category: Medical Plan: Reinforced low sodium diet - goal is systolic BP of at least 140 to 150 mm or less We suspect that she may have component of white coat syndrome or her blood pressure is partly anxiety-driven as her blood pressure is often high when checked here in the office but has been consistently much lower when she checks it at home Continue Amlodipine 5 mg QD for now Patient is reminded to continue monitoring her blood pressure regularly (3) Acquired hypothyroidism: Code(s): E03.9 - Hypothyroidism, unspecified Category: Medical Plan: Her TFTs were again normal on her recent labs Continue Levothyroxine 100 mcg QD - Rx refilled Will recheck her TFTs in 4 months for follow up (4) Gastritis: Code(s): K29.70 - Gastritis, unspecified, without bleeding Category: Medical Qualifiers: Gastritis type: unspecified gastritis Chronicity: unspecified Gastritis bleeding: without bleeding Qualified Code(s): K29.70 - Gastritis, unspecified, without bleeding Plan: Resolved - suspect gastritis as the etiology of her previous abdominal pain Abdominal US done in 2022 came out unrevealing Reinforced dietary restrictions Continue Pantoprazole 40 mg QD PRN (5) Inflammatory polyarthropathy: Code(s): M06.4 - Inflammatory polyarthropathy Category: Medical Plan: States that her joint pains (especially over her hands and fingers) have improved a lot since she retired from work about 2 to 3 years ago She used to take Celebrex PRN but has not needed to take it in a while now Follow up with rheumatology as scheduled (6) Polycythemia: Code(s): D75.1 - Secondary polycythemia Category: Medical Plan: This is most likely related to her smoking All previous hematology work ups have come back normal (7) Osteoporosis: Code(s): M81.0 - Age-related osteoporosis without current pathological fracture Category: Medical Qualifiers: Osteoporosis type: age-related Presence of current pathological fracture: without current pathological fracture Qualified Code(s): M81.0 - Age-related osteoporosis without current pathological fracture Plan: Her initial BMD done on 07/17/2024 revealed (+) osteoporosis based on the lowest T-score value of -4.4 in the lumbar spine Reinforced fall precautions Have reminded patient again to make sure she is taking her Vitamin D and Calcium supplements daily She has been referred to and is now seeing Dr. Hernandez for endocrinology management of her osteoporosis Continue Evenity injections 210 mg once a month (started in March 2025) - she has been tolerating her injections so far and is scheduled for her next dose tomorrow at [facility] Follow up with endocrinology as scheduled (8) Neck pain on right side: Code(s): M54.2 - Cervicalgia Category: Medical Plan: She has been receiving trigger point injections from pain management, with (+) temporary relief of her neck pain Follow up with pain management as scheduled (9) Vitamin D deficiency: Code(s): E55.9 - Vitamin D deficiency, unspecified Category: Surgical Plan: Continue Vitamin D3 2000 units QD (10) Anxiety: Code(s): F41.9 - Anxiety disorder, unspecified Category: Medical Plan: She has Lorazepam 1 mg tablets that she used to take BID as needed but states that her anxiety has been well-controlled lately (until her daughter's recent issues) and she has not had to take her Lorazepam in a few months now (11) Smoker: Code(s): F17.200 - Nicotine dependence, unspecified, uncomplicated Category: Social Hx Plan: Patient is counseled again on complete smoking cessation Plan Follow up in 4 months Orders: Orders Comprehensive [place]. Panel Fast 4 Months E78.00 - Pure hypercholesterolemia, unspecified Lipid Panel 4 Months E78.00 - Pure hypercholesterolemia, unspecified UA CC w/rflx Micro + Cult 4 Months R30.0 - Dysuria Complete Blood Count Auto Diff 4 Months D64.9 - Anemia, unspecified Thyroid Stimulating Hormone 4 Months E03.9 - Hypothyroidism, unspecified Free T4 (Free Thyroxine) 4 Months E03.9 - Hypothyroidism, unspecified Vitamin D 25-OH Total 4 Months E55.9 - Vitamin D deficiency, unspecified Referrals Cardiology Referral E78.00 - Pure hypercholesterolemia, unspecified Medications: Refilled levothyroxine 100 mcg PO QAM 90 tabs 1RF 90 days Repatha SureClick (evolocumab) 280 mg (2 mL) subcut Q4W 2 mL 3RF 4 weeks NS
== END 2025-09-20 11:20 | disposition home or self-care (01) ==
LOC: HO.HMCH 10:39
PROVIDERS: PCP Internal Medicine; Visit Provider Internal Medicine
DX: E78.00 Pure hypercholesterolemia, unspecified (principal); I10 Essential (primary) hypertension; M06.4 Inflammatory polyarthropathy; E03.9 Hypothyroidism, unspecified; K29.70 Gastritis, unspecified, without bleeding; D75.1 Secondary polycythemia; M81.0 Age-related osteoporosis without current pathological fracture; M54.2 Cervicalgia; E55.9 Vitamin D deficiency, unspecified; F41.9 Anxiety disorder, unspecified; F17.200 Nicotine dependence, unspecified, uncomplicated

== ENCOUNTER → 2025-09-20 10:38 | Outpatient (BNVA) | payer MEDICARE, MEDICAID, SELFPAY | PROVIDERS: PCP Internal Medicine; Visit Provider Internal Medicine | DX: E78.00 Pure hypercholesterolemia, unspecified (principal); E03.9 Hypothyroidism, unspecified; I10 Essential (primary) hypertension; K29.70 Gastritis, unspecified, without bleeding; M06.4 Inflammatory polyarthropathy; D75.1 Secondary polycythemia; M81.0 Age-related osteoporosis without current pathological fracture; M54.2 Cervicalgia; E55.9 Vitamin D deficiency, unspecified; F41.9 Anxiety disorder, unspecified; F17.200 Nicotine dependence, unspecified, uncomplicated; Z71.6 Tobacco abuse counseling | CPT/HCPCS: 96127; 99212 ==

== ENCOUNTER 2025-09-21 09:49 | Outpatient (AMB) | payer MEDICARE, MEDICAID, SELFPAY ==
--- NOTE | 2025-09-21 10:45 | AM.OFFVISNUR ---
Intake Visit Reasons: Evenity #7 Allergies Fclnvdh-BLZ-CaV Reductase Inhibitor Adverse Reaction (Severe, Verified 09/20/25 11:04) abdominal pain, myalgia, fatigue aspirin Adverse Reaction (Intermediate, Verified 09/20/25 11:04) abdominal pain, nausea/vomiting, makes sick ezetimibe (Zetia) Adverse Reaction (Intermediate, Verified 09/20/25 11:04) abdominal pain alirocumab (From Praluent Pen) Adverse Reaction (Unknown, Verified 09/20/25 11:04) ineffective Office Meds romosozumab-aqqg 210 mg/2.34 mL(105 mg/1.17 mL x2)subcutaneous syringe Performing Provider: Daniella Hernandez MD [place] [facility] [place] Administered by: Doris Yang RN on 09/21/25 10:32 Dose Route Admin Location Dispensed Lot Number Expiration Date NDC [employer] Quality Control Inspector 210 mg subcut bilateral upper arms 2.34 mL [id number] 02/02/28 24971-453-18 [employer] Total Dispensed Waste 2.34 mL 0 % Comments: No adverse reactions reported from previous injection. Pt tolerated injection well. Pt scheduled in 4 weeks for next appt. No further questions at this time. Assessment & Plan Assessment & Plan Orders: Orders AMB Romosozumab Injection Patient Supplied Today M81.0 - Age-related osteoporosis without current pathological fracture Coding
== END 2025-09-21 10:43 | disposition home or self-care (01) ==
LOC: HO.ENCR 09:50
PROVIDERS: PCP Internal Medicine; Visit Provider Internal Medicine Endocrinology, Diabetes & Metabolism
DX: M81.0 Age-related osteoporosis without current pathological fracture (principal)

== ENCOUNTER → 2025-09-21 09:49 | Outpatient (BNVA) | payer MEDICARE, MEDICAID, SELFPAY | PROVIDERS: PCP Internal Medicine; Visit Provider Internal Medicine Endocrinology, Diabetes & Metabolism | DX: M81.0 Age-related osteoporosis without current pathological fracture (principal); Z79.620 Long term (current) use of immunosuppressive biologic | CPT/HCPCS: 96372; J3111 ==

== ENCOUNTER 2025-10-18 09:45 | Outpatient (AMB) | payer MEDICARE, MEDICAID, SELFPAY ==
--- NOTE | 2025-10-18 10:44 | AM.OFFVISNUR ---
Intake Visit Reasons: Evenity #8 Allergies Zvhanth-IYC-VvP Reductase Inhibitor Adverse Reaction (Severe, Verified 09/20/25 11:04) abdominal pain, myalgia, fatigue aspirin Adverse Reaction (Intermediate, Verified 09/20/25 11:04) abdominal pain, nausea/vomiting, makes sick ezetimibe (Zetia) Adverse Reaction (Intermediate, Verified 09/20/25 11:04) abdominal pain alirocumab (From Praluent Pen) Adverse Reaction (Unknown, Verified 09/20/25 11:04) ineffective Office Meds romosozumab-aqqg 210 mg/2.34 mL(105 mg/1.17 mL x2)subcutaneous syringe Performing Provider: Daniella Hernandez MD Performing Location[place] [facility] [place] [facility] [place] Administered by: Doris Yang RN on 10/18/25 10:18 Dose Route Admin Location Dispensed Lot Number Expiration Date NDC Salon Assistant 210 mg subcut bilateral upper arms 2.34 mL [id number] 02/02/28 51589-107-40 [employer] Total Dispensed Waste 2.34 mL 0 % Comments: No adverse reactions reported from previous injection. Pt tolerated injection well. Pt scheduled in 4 weeks for next appt. No further questions at this time. Assessment & Plan Assessment & Plan Orders: Orders AMB Romosozumab Injection Patient Supplied Today M81.0 - Age-related osteoporosis without current pathological fracture Coding
== END 2025-10-18 10:39 | disposition home or self-care (01) ==
LOC: HO.ENCR 09:46
PROVIDERS: PCP Internal Medicine; Visit Provider Student in an Organized Health Care Education/Training Program
DX: M81.0 Age-related osteoporosis without current pathological fracture (principal)

== ENCOUNTER → 2025-10-18 09:45 | Outpatient (BNVA) | payer MEDICARE, MEDICAID, SELFPAY | PROVIDERS: PCP Internal Medicine; Visit Provider Student in an Organized Health Care Education/Training Program | DX: M81.0 Age-related osteoporosis without current pathological fracture (principal) | CPT/HCPCS: 96372; J3111 ==